=== PATIENT | male | born 1960 | race Caucasian/White ===

== ENCOUNTER 2017-10-09 09:14 | Emergency (ER) | payer SELFPAY ==
[2017-10-09 09:14] VITALS: BP 135/79; PULSE 93; RESP 16; TEMP 36.9; O2SAT 98; BMI 32.5
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
[2017-10-09] MEDS: 0.9% Normal Saline 1,000 ML 1000 ML IV (09:45)
[2017-10-09] MEDS: Ketorolac 30 MG/ML Syringe IV (09:46)
[2017-10-09] MEDS: Ondansetron 4 MG/2 ML Vial IV (09:46)
[2017-10-09 11:10] VITALS: PULSE 72; RESP 18; O2SAT 99
== END 2017-10-09 11:15 | disposition home or self-care (01) ==
PROVIDERS: Emergency Provider Emergency Medicine; Family Provider Nurse Practitioner; PCP Nurse Practitioner
DX: B34.9 Viral infection, unspecified (principal); K52.9 Noninfective gastroenteritis and colitis, unspecified; J02.9 Acute pharyngitis, unspecified; R05 Cough; K21.9 Gastro-esophageal reflux disease without esophagitis; I10 Essential (primary) hypertension; E78.00 Pure hypercholesterolemia, unspecified; Z87.19 Personal history of other diseases of the digestive system; Z79.899 Other long term (current) drug therapy
CPT/HCPCS: 87804; 96361; 96374; 96375; 99283; J7030; J2405

== ENCOUNTER 2019-09-25 09:55 | Emergency (ER) | payer OTHER, SELFPAY ==
[2019-09-25 09:56] VITALS: BP 161/107; PULSE 80; RESP 16; TEMP 36.6; O2SAT 96; BMI 30.5
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
[2019-09-25] MEDS: Naproxen 500 MG Tablet PO (10:48)
--- NOTE | 2019-09-25 10:58 | RAD_ITS ---
STUDY: X-RAY - RIGHT SHOULDER REASON FOR EXAM: Male, 59 years old. Pt. Fell, pain TECHNIQUE: 4 view(s) of the shoulder. COMPARISON: None. FINDINGS: Normal glenohumeral articulation. Normal acromioclavicular joint. Normal acromion. Normal humeral head and visualized proximal humerus. The soft tissue structures are unremarkable. Normal visualized pulmonary apex. RAD/Shoulder min 2 Views IMPRESSION: Normal x-ray examination of the shoulder. Electronically Signed: Jacques Bateman, at 11:18 EST , Service support ,
--- NOTE | 2019-09-25 10:58 | RAD_ITS ---
STUDY: X-RAY - LEFT KNEE REASON FOR EXAM: Male, 59 years old. pt. Fell, pain, able to bear weight TECHNIQUE: 4 view(s) of the knee. COMPARISON: None. FINDINGS: Normal visualized distal femur. Normal visualized proximal tibia and fibula. Normal proximal tibiofibular articulation. Normal medial femorotibial compartment. Normal lateral femorotibial compartment. Normal patellofemoral articulation. Prepatellar soft tissue swelling. RAD/Knee 4 or More Views IMPRESSION: Prepatellar soft tissue swelling. Electronically Signed: Jacques Bateman, at 11:17 EST , Service support ,
[2019-09-25 11:39] VITALS: BP 128/77; PULSE 83; RESP 15; O2SAT 98
== END 2019-09-25 11:39 | disposition home or self-care (01) ==
PROVIDERS: Emergency Provider Emergency Medicine; Family Provider Nurse Practitioner; PCP Nurse Practitioner
DX: S46.911A Strain of unspecified muscle, fascia and tendon at shoulder and upper arm level, right arm, initial encounter (principal); S80.02XA Contusion of left knee, initial encounter; W01.0XXA Fall on same level from slipping, tripping and stumbling without subsequent striking against object, initial encounter; Y93.9 Activity, unspecified; Y92.9 Unspecified place or not applicable
CPT/HCPCS: 73030; 73564; 99283

== ENCOUNTER → 2019-10-08 15:58 | Outpatient (CLI) | payer OTHER, SELFPAY ==
[2019-09-26 09:08] VITALS: BMI 30.5
--- NOTE | 2019-10-08 15:59 | MRI_ITS ---
STUDY: MRI RIGHT SHOULDER REASON FOR EXAM: Male, 59 years old. right shoulder pain, LIMITED ROM AFTER FALL TECHNIQUE: Standardized fat and water weighted pulse sequences were obtained in all 3 orthogonal planes. COMPARISON: None. FINDINGS: An undersurface partial tear of the anterior aspect of supraspinatus tendon is present at its insertion site on the greater tuberosity measuring 1.12 cm. Normal infraspinatus tendon. Normal subscapularis tendon. Normal teres minor tendon. Normal supraspinatus muscle. Normal infraspinatus muscle. Normal subscapularis muscle. Normal teres minor muscle. A small glenohumeral joint effusion is present. Normal glenohumeral articulation. Normal humeral head and visualized proximal humerus. Normal biceps labral complex. Normal intracapsular long biceps tendon. A linear and degenerative appearing tear of the superior and anterior glenoid labrum is present. The posterior glenoid labrum is normal. Normal capsulo- ligamentous complex. Normal rotator interval. There is mild osteoarthritis of the acromioclavicular articulation. There is a Type II morphology (curved), with a neutral orientation. There is no subacromial-subdeltoid bursal fluid. Normal visualized coracohumeral and coracoacromial ligaments. Normal quadrilateral space. Normal axillary space. Normal deltoid muscle. Normal trapezius muscle. MRI/Upper Ext Joint Only(Routine) IMPRESSION: 1. Undersurface tear in the far anterior aspect of the supraspinatus tendon. 2. Horizontal and degenerative tearing of the superior and anterior glenoid labrum. 3. Small glenohumeral joint effusion Electronically Signed: Luis Parra MD at 18:25 EST , Service support ,
--- NOTE | 2019-10-08 16:08 | RAD_ITS ---
STUDY: X-RAY - ORBITS REASON FOR EXAM: Male, 59 years old. Hx of metal in the eye. clearance for MRI. TECHNIQUE: 2 view(s) of the orbits were obtained. COMPARISON: None. FINDINGS: Normal bilateral orbits without a metallic orbital foreign body. Normal visualized facial bones. Normal paranasal sinuses. The soft tissue structures are unremarkable. RAD/Orbits for Foreign Body IMPRESSION: No demonstrated metallic orbital foreign body. The patient is cleared for an MRI examination. Electronically Signed: Simon García MD at 16:46 EST , Service support ,
== END ==
PROVIDERS: PCP Nurse Practitioner; Referring Provider Physician Assistant Surgical; Visit Provider Physician Assistant Surgical
DX: M25.511 Pain in right shoulder (principal)
CPT/HCPCS: 70030; 73221

== ENCOUNTER → 2025-08-09 | Outpatient (CLI) | payer SELFPAY ==
--- OUTSIDE RECORDS SUMMARY | 2025-08-09 15:29 | XMS RPT_ITS | CCD ---
Author Organization [facility] Care Team Providers Care Homicide Squad Commanding Officer Name Role Phone TRANGT, RAMONITA PAC Admitting Unavailable WAYT, RAMONITA PAC Attending Unavailable WAYT, RAMONITA PAC Primary Care Unavailable FAST, CROW DO Consulting Unavailable PROVIDER, UNKNOWN Consulting Unavailable WAYT, RAMONITA PAC Admitting Unavailable WAYT, RAMONITA PAC Attending Unavailable WAYT, RAMONITA PAC Primary Care Unavailable FAST, CROW DO Consulting Unavailable PROVIDER, UNKNOWN Consulting Unavailable Renate Yun CNP Unavailable Dr. Abdoulaye Castelan Unavailable [phone] Dulce Maria Melendez LPN Unavailable Unavailable Unavailable Unavailable Maxi Hameed LPN Unavailable Unavailable Nohemy Doran CNP Unavailable Nohemy Doran CNP Unavailable Renate Yun Unavailable Nohemy Doran CNP Unavailable Fast DO, Crow A Referring Unavailable Nohemy Doran CNP Attending Unavailable Nohemy Doran CNP Consulting Unavailable Aminata Santoro MA Unavailable Unavailable Obey Goddard Attending Unavailable Obey Goddard Attending Unavailable Medications Completed/Discontinued Medications Medication Drug Class(es) Dates Sig (Normalized) Sig (Original) albendazole 200 mg oral tablet (11 sources) Antihelminthic Start: 08-24-2016 End: 09-22-2021 Albenza 200 MG Oral Tablet 2 (two) Tablet qd x 2 doses 2 two weeks apart for 0 days Quantity: 8 {Tablet} Refills: 0 Ordered: 22-Sep-2021 Dulce Maria Melendez LPN Start : 24-Aug-2016 End : 22-Sep-2021 Inactive [id number] 200 actuat albuterol 0.09 mg/actuat metered dose inhaler (15 sources) beta2-Adrenergic Agonist Start: 12-10-2022 take 1 puff(s) by inhalation every four to six hours albuterol sulfate 90 mcg/actuation inhalation HFA Aerosol with Adapter 1 puff every 4 to 6 hours;shortness of breath or wheezing for 0 days Quantity: 1 {Each} Refills: 3 Ordered: 10-Dec-2022 Espinoza FAYNohemy Start : 10-Dec-2022 Active Start: 09-09-2010 End: 04-16-2011 PROVENTIL HFA, 108 (90 Base) MCG/ACT (Inhalation Aerosol Solution) 2 (two) Aerosol Soln 2 puffs qid prn for 0 days Quantity: 1 {Aerosol_Soln} Refills: 1 Ordered: 16-Apr-2011 Radha Titus Start : 09-Sep-2010 End : 16-Apr-2011 Inactive amoxicillin 875 mg / clavulanate 125 mg oral tablet (11 sources) Penicillin-class Antibacterial Start: 06-24-2016 End: 07-04-2016 take 1 tablet by mouth twice daily Augmentin 875-125 MG Oral Tablet 1 Tablet bid for 10 days Quantity: 20 {Tablet} Refills: 0 Ordered: 24-Jun-2016 Yoli Newman DO Start : 24-Jun-2016 End : 04-Jul-2016 Inactive Ascorbic Acid (11 sources) Vitamin C End: 02-11-2016 take 2 tablets by mouth once daily VITAMIN C (PO Tab) 2 QD for 0 days Refills: 0 Ordered: 11-Feb-2016 Dulce Maria Melendez LPN End : 11-Feb-2016 Discontinued Comments: This order discontinued per [facility]. Comment on above: This order discontin ued per [facility]. atenolol 50 mg oral tablet (11 sources) beta-Adrenergic Tari Start: 05-24-2016 End: 08-24-2016 take 1 tablet by mouth once daily Atenolol 50 MG Oral Tablet 1 (one) Tablet qd for 30 days Quantity: 30 {Tablet} Refills: 11 Ordered: 24-Aug-2016 Dulce Maria Melendez LPN Start : 24-May-2016 End : 24-Aug-2016 Discontinued atorvastatin 20 mg oral tablet (11 sources) HMG-CoA Reductase Inhibitor Start: 10-07-2017 End: 09-22-2021 take 1 tablet by mouth once daily Atorvastatin Calcium 20 MG Oral Tablet 1 (one) Tablet daily for 0 days Quantity: 30 {Tablet} Refills: 3 Ordered: 22-Sep-2021 Al STEINERDulce Maria Start : 07-Oct-2017 End : 22-Sep-2021 Inactive Comments: Pt will need appt before more refills Comment on above: Pt will need appt be fore more refills azithromycin 250 mg oral tablet (4 sources) Macrolide Antimicrobial Start: 12-10-2022 Zithromax Z-Melvin 250 mg oral tablet 1 Packet as directed on dose pack;For 250 mg dose pack: take 500 mg today (day 1), then 250 mg for 4 days (days 2-5) for 0 days Quantity: 1 {Packet} Refills: 0 Ordered: 10-Dec-2022 Nohemy Doran CNP Start : 10-Dec-2022 Active ciprofloxacin 500 mg oral tablet (11 sources) Quinolone Antimicrobial Start: 09-18-2012 End: 09-25-2012 take 1 tablet by mouth twice daily CIPRO, 500MG (Oral Tablet) 1 Tablet bid for 7 days Quantity: 14 {Tablet} Refills: 0 Ordered: 18-Sep-2012 Tiffanie Clifton LPN Start : 18-Sep-2012 End : 25-Sep-2012 Inactive 24 hr clarithromycin 500 mg extended release oral tablet (11 sources) Macrolide Antimicrobial Start: 09-09-2010 End: 04-16-2011 take 2 tablets by mouth once daily BIAXIN XL, 500MG (Oral Tablet Extended Release 24 Hour) 2 (two) Tablet ER 24HR qd for 0 days Quantity: 20 {Tablet_ER_24HR} Refills: 0 Ordered: 16-Apr-2011 Radha Titus Start : 09-Sep-2010 End : 16-Apr-2011 Inactive codeine phosphate 2 mg/ml / guaiFENesin 20 mg/ml oral solution (20 sources) Opioid Agonist Start: 09-01-2011 End: 09-23-2011 CHERATUSSIN AC, 100-10MG/5ML (Oral Syrup) 1-2 tsp Syrup q hs prn for 0 days Quantity: 100 {Milliliter} Refills: 0 Ordered: 23-Sep-2011 Maylin Castellano RN Start : 01-Sep-2011 End : 23-Sep-2011 Inactive Comments: one hundred milliliters Start: 09-08-2009 End: 04-16-2011 GUAIATUSSIN AC, 100-10MG/5ML (Oral Syrup) 1 Syrup 1tsp qhs for 0 days Quantity: 6 {Syrup} Refills: 0 Ordered: 16-Apr-2011 Radha Titus Start : 08-Sep-2009 End : 16-Apr-2011 Inactive Comment on above: one hundred millilit ers esomeprazole 40 mg delayed release oral capsule (11 sources) Proton Pump Inhibitor Start: 3 End: 4 NEXIUM, 40MG (Oral Capsule Delayed Release) [address] daily for 0 days Quantity: 30 {Capsule_DR} Refills: 0 Ordered: 22-Apr-2014 Tiffanie Clifton LPN Start : 12-Feb-2013 End : 22-Apr-2014 Discontinued Comments: patient needs appt. for more refills Comment on above: patient needs appt. for more refills ferrous sulfate 325 mg delayed release oral tablet (20 sources) Start: 4 End: 2 take 1 tablet by mouth once daily Ferrous Sulfate 325 (65 Fe) MG Oral Tablet Delayed Release 1 (one) Tablet DR daily for 450 days Refills: 0 Ordered: 22-Sep-2021 Dulce Maria Melendez LPN Start : 22-Apr-2014 End : 22-Sep-2021 Inactive Start: 09-11-2009 End: 10-11-2009 take 1 tablet by mouth once daily FERROUS SULFATE, 325 (65 Fe)MG (Oral Tablet) 1 (one) Tablet daily for 30 days Refills: 0 Ordered: 11-Sep-2009 Renate Yun Start : 11-Sep-2009 End : 11-Oct-2009 Inactive hydroCHLOROthiazide 12.5 mg / lisinopril 10 mg oral tablet (11 sources) Thiazide Diuretic, Angiotensin Converting Enzyme Inhibitor Start: 10-07-2017 End: 09-22-2021 take 1 tablet by mouth once daily Lisinopril-hydroCHLOROthiazide 10-12.5 MG Oral Tablet 1 (one) Tablet daily for 30 days Quantity: 30 {Tablet} Refills: 3 Ordered: 22-Sep-2021 Dulce Maria Melendez LPN Start : 07-Oct-2017 End : 22-Sep-2021 Inactive Comments: pt will need ov before more refills Comment on above: pt will need ov befo re more refills lansoprazole 30 mg delayed release oral capsule (11 sources) Proton Pump Inhibitor Start: 04-22-2014 End: 05-22-2014 PREVACID, 30MG (Oral Capsule Delayed Release) [address] qd for 30 days Refills: 0 Ordered: 22-Apr-2014 Renate Yun Start : 22-Apr-2014 End : 22-May-2014 Inactive levoFLOXacin 500 mg oral tablet (20 sources) Quinolone Antimicrobial Start: 09-23-2011 End: 10-03-2011 take 1 tablet by mouth once daily LEVAQUIN, 500MG (Oral Tablet) 1 Tablet daily for 10 days Quantity: 10 {Tablet} Refills: 0 Ordered: 23-Sep-2011 Trent BUCKLEY Yoli Start : 23-Sep-2011 End : 03-Oct-2011 Inactive Start: 06-19-2009 End: 04-16-2011 LEVAQUIN, 500MG (Oral Tablet ) 1 Tablet for 0 days Refills: 0 Ordered: 16-Apr-2011 Radha Titus Start : 19-Jun-2009 End : 16-Apr-2011 Inactive lisinopril 40 mg oral tablet (9 sources) Angiotensin Converting Enzyme Inhibitor Start: 06-20-2023 take 1 tablet by mouth once daily lisinopriL 40 mg oral tablet 1 (one) Tablet daily for 0 days Quantity: 30 {Tablet} Refills: 3 Ordered: 20-Jun-2023 Nohemy Doran CNP Start : 20-Jun-2023 Active Start: 01-11-2023 take 1 tablet by danie th once daily lisinopriL 40 mg oral tablet 1 (one) Tablet daily for 0 days Quantity: 30 {Tablet} Refills: 3 Ordered: 11-Jan-2023 Nohemy Doran CNP Start : 11-Jan-2023 Active Start: 12-10-2022 take 1 tablet by danie th once daily lisinopriL 40 mg oral tablet 1 (one) Tablet daily for 0 days Quantity: 30 {Tablet} Refills: 3 Ordered: 10-Dec-2022 Nohemy Doran CNP Start : 10-Dec-2022 Active Start: 12-10-2022 take 1 tablet by danie th once daily lisinopriL 40 mg oral tablet 1 (one) Tablet daily for 0 days Quantity: 30 {Tablet} Refills: 3 Ordered: 10-Dec-2022 Nohemy Doran CNP Start : 10-Dec-2022 Active Start: 10-08-2022 take 1 tablet by danie th once daily lisinopriL 20 mg oral tablet 1 (one) Tablet daily for 0 days Quantity: 30 {Tablet} Refills: 3 Ordered: 08-Oct-2022 Nohemy Doran CNP Start : 08-Oct-2022 Active Start: 07-14-2022 take 1 tablet by danie th once daily Lisinopril 10 MG Oral Tablet 1 (one) Tablet daily for 0 days Quantity: 30 {Tablet} Refills: 3 Ordered: 14-Jul-2022 Nohemy Doran CNP Start : 14-Jul-2022 Active Start: 03-05-2022 take 1 tablet by danie th once daily Lisinopril 10 MG Oral Tablet 1 (one) Tablet daily for 0 days Quantity: 30 {Tablet} Refills: 3 Ordered: 05-Mar-2022 Nohemy Doran CNP Start : 05-Mar-2022 Active Start: 11-13-2021 take 1 tablet by danie th once daily Lisinopril 10 MG Oral Tablet 1 (one) Tablet daily for 0 days Quantity: 30 {Tablet} Refills: 3 Ordered: 13-Nov-2021 Cikeniaa FAY, Ena Cikeniaalejandra APONTE, Renate Timmons Start : 13-Nov-2021 Active MENS ONE DAILY (Oral Tablet) (11 sources) End: 02-11-2016 take 1 tablet by mouth once daily MENS ONE DAILY (Oral Tablet) for 0 days Refills: 0 Ordered: 11-Feb-2016 Dulce Maria Melendez LPN End : 11-Feb-2016 Discontinued Comments: This order discontinued per [facility]. Comment on above: This order discontin ued per [facility]. predniSONE 10 mg oral tablet (15 sources) Start: 12-10-2022 End: 12-15-2022 take 4 tablets by mouth once daily predniSONE 10 mg oral tablet 4 tablet daily for 5 days Quantity: 20 {Tablet} Refills: 0 Ordered: 10-Dec-2022 Nohemy Doran CNP Start : 10-Dec-2022 End : 15-Dec-2022 Inactive Start: 09-23-2011 End: 05-25-2012 take 1 tablet by mouth once daily PREDNISONE, 20MG (Oral Tablet) 1 Tablet qd for 0 days Quantity: 5 {Tablet} Refills: 0 Ordered: 25-May-2012 Maylin Castellano RN Start : 23-Sep-2011 End : 25-May-2012 Inactive rosuvastatin calcium 5 mg oral tablet (9 sources) HMG-CoA Reductase Inhibitor Start: 06-20-2023 take 1 tablet by mouth once daily at bedtime rosuvastatin 5 mg oral tablet 1 (one) Tablet qhs for 0 days Quantity: 30 {Tablet} Refills: 3 Ordered: 20-Jun-2023 Nohemy Doran CNP Start : 20-Jun-2023 Active Start: 01-11-2023 take 1 tablet by danie th once daily at bedtime rosuvastatin 5 mg oral tablet 1 (one) Tablet qhs for 0 days Quantity: 30 {Tablet} Refills: 3 Ordered: 11-Jan-2023 Nohemy Doran CNP Start : 11-Jan-2023 Active Start: 10-08-2022 take 1 tablet by danie th once daily at bedtime rosuvastatin 5 mg oral tablet 1 (one) Tablet qhs for 0 days Quantity: 30 {Tablet} Refills: 3 Ordered: 08-Oct-2022 Nohemy Doran CNP Start : 08-Oct-2022 Active Start: 07-14-2022 take 1 tablet by danie th once daily at bedtime Rosuvastatin Calcium 5 MG Oral Tablet 1 (one) Tablet qhs for 0 days Quantity: 30 {Tablet} Refills: 3 Ordered: 14-Jul-2022 Nohemy Doran CNP Start : 14-Jul-2022 Active Start: 03-05-2022 take 1 tablet by danie th once daily at bedtime Rosuvastatin Calcium 5 MG Oral Tablet 1 (one) Tablet qhs for 0 days Quantity: 30 {Tablet} Refills: 3 Ordered: 05-Mar-2022 Nohemy Doran CNP Start : 05-Mar-2022 Active Start: 11-13-2021 take 1 tablet by danie th once daily at bedtime Rosuvastatin Calcium 5 MG Oral Tablet 1 (one) Tablet qhs for 0 days Quantity: 30 {Tablet} Refills: 3 Ordered: 13-Nov-2021 Renate Yun CNP, CNP, Renate Timmons Start : 13-Nov-2021 Active NEGATED: Highlighted row has not occurred!No Known Historical Medications (3 sources) No Known Histori robles Medications Problems Active Problems Problem Classification Problem Date Documented Date Episodic/Chronic Abdominal pain (20 sources) Abdominal pain; Translations: [Abdominal pain] Resolved: 3 06-24-2016 Episodic Comment on above: improved with cipro for pseudomonas in stool Acute bronchitis (17 sources) Acute bronchitis; Translations: [Bronchitis, acute] Resolved: 1 06-17-2015 Episodic Administrative/social admission (18 sources) Patient encounter status; Translations: [Physical examination of employee] Onset: 4 08-24-2016 Episodic Comment on above: DOT exam Chronic obstructive pulmonary disease and bronchiectasis (20 sources) Bronchitis; Translations: [Bronchitis] Onset: 2 Resolved: 2 08-24-2016 Episodic Deficiency and other anemia (20 sources) Iron deficiency anemia; Translations: [Iron deficiency anemia, unspecified] 08-24-2016 Episodic Comment on above: hemoglobin improved -? take supplement l karen ferrous gluconate that may help fatigue, insomniahemoglobin improved in past, not on any supplement Deficiency and other anemia (20 sources) Iron deficiency anemia, unspecified Episodic Diabetes mellitus without complication (20 sources) Impaired fasting glycemia; Translations: [Impaired fasting glucose] 11-13-2021 Episodic Disorders of lipid metabolism (20 sources) Hypercholesterolemia; Translations: [Hypercholesterolemia] 08-24-2016 Chronic Comment on above: improved on atorvast atin on atorvastatin check lipid today, s tarted back on crestor back in November 2021 -self pay so only wa nts to check yearly. we will repeat lipids prior to next OVcontinue rosuvastatin 5mg qhsstarted back on crestor November 2021, numbers in April 02 were much better Esophageal disorders (20 sources) Gastroesophageal reflux disease; Translations: [GERD (gastroesophageal reflux disease)] 08-24-2016 Chronic Comment on above: OTC med Essential hypertension (20 sources) Benign hypertension; Translations: [Hypertension, benign] 08-24-2016 Chronic Comment on above: controlled on lisino pril-hydrochlorothiazide has been on lisinopr il in the past, coming back as new pt, will check labs then restart once seen check cmp today sinc e back on meds. -does not check at home but bp looks good todaylisinopril in the past, restarted, labs were to be done in February but forgot -He is going to get a machine and keep BP log, bring in the log in the next few weeks.-increase lisinopril to 20mg daily-educated on potential causes of high bp, including his untreated sleep apnea, diet/salt intake (eating a lot of fast food), etc.not checking bp at home. BP high today Immunizations and screening for infectious disease (20 sources) Needs influenza immunization; Translations: [Need for prophylactic vaccination and inoculation against influenza] 08-24-2016 Episodic Intestinal infection (20 sources) Intestinal infection due to Pseudomonas; Translations: [Intestinal infection due to Pseudomonas (Renamed from Enteritis, pseudomonas)] Resolved: 3 06-24-2016 Episodic Malaise and fatigue (20 sources) Fatigue; Translations: [Fatigue] 08-24-2016 Episodic Nonspecific chest pain (20 sources) Chest pain; Translations: [Chest pain] Resolved: 2 08-24-2016 Episodic Comment on above: my suspiciion is rel ated to bronchitis but lungs clear no feeling different after aerosol-- -- will look at heart-- family h/o from cv disease at 60 Osteoarthritis (20 sources) Arthritis; Translations: [Arthritis] 08-24-2016 Chronic Other acquired deformities (17 sources) Deviation of finger; Translations: [Finger deformity, left] 08-24-2016 Episodic Comment on above: workmans comp case, seen by David/Zack Other ear and sense organ disorders (6 sources) Bilateral tinnitus; Translations: [Tinnitus, bilateral] 12-10-2022 Episodic Comment on above: possibly d/t uncontr olled htn, TMs are intact. no fluid. some scar tissue Other gastrointestinal disorders (20 sources) Abdominal bloating; Translations: [Abdominal bloating] Resolved: 2 08-24-2016 Episodic Comment on above: eating ham sausage Other gastrointestinal disorders (20 sources) Diarrhea; Translations: [DIARRHEA] Resolved: 3 06-24-2016 Episodic Comment on above: pseudomonas in stool , treated with cipro Other infections; including parasitic (17 sources) H/O: infectious disease; Translations: [History of worms] 08-24-2016 Episodic Comment on above: took seeds of papaya , will treat empiracally Other lower respiratory disease (20 sources) Cough; Translations: [Cough] Onset: 2 Resolved: 3 06-24-2016 Episodic Other non-traumatic joint disorders (20 sources) Joint pain; Translations: [Joint pain] 08-24-2016 Episodic Comment on above: frequent tick exposu re Other nutritional; endocrine; and metabolic disorders (20 sources) Lipids abnormal; Translations: [Abnormal cholesterol test] Resolved: 3 08-24-2016 Chronic Other nutritional; endocrine; and metabolic disorders (20 sources) Body mass index 30+ - obesity; Translations: [BMI 33.0-33.9,adult] Resolved: 3 09-22-2021 Chronic Other nutritional; endocrine; and metabolic disorders (20 sources) Weight gain; Translations: [Weight gain] Resolved: 1 06-24-2016 Episodic Other screening for suspected conditions (not mental disorders or infectious disease) (20 sources) Blood chemistry abnormal; Translations: [Abnormal blood chemistry] Resolved: 3 08-24-2016 Episodic Other upper respiratory infections (20 sources) Upper respiratory infection; Translations: [Upper respiratory infection] Resolved: 1 08-24-2016 Episodic Residual codes; unclassified (20 sources) Obstructive sleep apnea of adult; Translations: [Obstructive sleep apnea, adult] 08-24-2016 Chronic Comment on above: untreated, 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 likely why he only sleeps on average 4 hours per night. Residual codes; unclassified (5 sources) Obstructive sleep apnea syndrome Chronic Residual codes; unclassified (20 sources) Family history of stroke; Translations: [Family history of stroke] 08-24-2016 Episodic Comment on above: father Residual codes; unclassified (20 sources) Non-smoker; Translations: [Nonsmoker] 09-22-2021 Episodic Unclassified (20 sources) Unclassified (18 sources) Nonsmoker Unclassified (15 sources) BMI 39.0-39.9,adult Unclassified (17 sources) Hypertension, benign Unclassified (5 sources) History of worms Unclassified (5 sources) Finger deformity, left Unclassified (9 sources) Screening for prostate cancer Unclassified (5 sources) Obstructive sleep apnea, adult Unclassified (5 sources) Abnormal blood chemistry Unclassified (5 sources) BMI 38.0-38.9,adult Unclassified (20 sources) HYPERCHOLESTEROLEMIA, PURE (272.0) Unclassified (20 sources) Hypertension,benign(401 .1) Unclassified (15 sources) CHEST PAIN, NOS (786.50) Unclassified (15 sources) BRONCHITIS, NOT SPECIFIED ACUTE OR CHRONIC (490.) Unclassified (10 sources) Weight gain (783.1) Unclassified (10 sources) SCREENING FOR CANCER OF THE PROSTATE (V76.44) Unclassified (15 sources) Abnormal Cholesterol (272.9) Past or Other Problems Problem Classification Problem Date Documented Date Episodic/Chronic Fracture of upper limb (11 sources) Fracture of clavicle; Translations: [Fracture Of Clavicle] Resolved: 03-31-2022 08-24-2016 Episodic Other fractures (11 sources) Fracture of rib; Translations: [Fracture Of Rib] Resolved: 03-31-2022 08-24-2016 Episodic Sprains and strains (3 sources) Strain of unspecified muscle, fascia and tendon at shoulder and upper arm level, right arm, initial encounter; Translations: [Strain of unspecified muscle, fascia and tendon at shoulder and upper arm level, right arm, initial encounter] Onset: 01-11-2020 Episodic Superficial injury; contusion (1 source) Contusion of left knee, initial encounter; Translations: [Contusion of left knee, initial encounter] Onset: 11-09-2019 Episodic Unclassified (11 sources) Unspecified Diagnosis 09-22-2021 Unclassified (5 sources) BMI 33.0-33.9,adult Unclassified (5 sources) Physical examination of employee Unclassified (15 sources) 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.3) Unclassified (5 sources) Bronchitis,Acute (466.0) Unclassified (10 sources) Abnormal blood chemistry (790.6) Unclassified (3 sources) BMI 36.0-36.9,adult Results Test Name Value Interpretation Reference Range Facility Urgent Care Visit Reporton 1 10-29-2023 Urgent Care Visit Report [facility] [address], [address] [place] [address] OFFICE VISIT Date of Service: 08/28/24 MR#: [id number] Acct: [id number] Name: MILKA LANGFORD Rep #: [id number] : 1960 Provider: MONA Jiménez Age/Sex: 64/M Location: [facility] Status: Signed Intake Vital Signs 05/29/24 16:53 Height 5 ft 6.5 in Weight: 253 lb 6 oz BMI 40.2 BP 150/90 H Position Sitting Pulse 94 Temp 98.9 F Temp Source Temporal Pulse Oximetry (%) 98 Oxygen Delivery Method room air Intake Visit Reasons: O DOT PHYSICAL Chief Complaint: DOT physical Allergies No Known Allergies Allergy (Verified 05/29/24 16:41) PFSH Social History (Updated 05/16/20 @ 11:15 by Sudheer DUNN PA) Smoking Status: Never smoker HPI HPI Chief Complaint: DOT physical Details: MILKA LANGFORD, is a 64 M who presents to the office today for Office Procedures Physical Exam Coding PE Coding DOT PE: Yes Coding Level of Care Code No Charge Diagnoses Encounter for examination required by Department of Transportation (DOT) Z02.89 Assessment and Plan Assessment and Plan (1) Encounter for examination required by Department of Transportation (DOT): Status: Acute 08/28/24 1350 Date Obey Gutierrezignsweetie Signature: Date (if applicable) CC: Normal [facility] Urgent Care Visit Reporton 0 05-29-2024 Urgent Care Visit Report [facility] [address], [address] [place] [address] OFFICE VISIT Date of Service: 05/29/24 MR#: [id number] Acct: [id number] Name: MILKA LANGFORD Rep #: [id number] : 1960 Provider: MONA Jiménez Age/Sex: 63/M Location: [facility] Status: Signed Intake Vital Signs 05/29/24 16:53 Height 5 ft 6.5 in Weight: 253 lb 6 oz BMI 40.2 BP 150/90 H Position Sitting Pulse 94 Temp 98.9 F Temp Source Temporal Pulse Oximetry (%) 98 Oxygen Delivery Method room air Intake Visit Reasons: DOT PHYSICAL/ SELF PAY Chief Complaint: DOT physical Accompanied by: Self Allergies No Known Allergies Allergy (Verified 05/29/24 16:41) Medications ???Medication ???Instructions ???Recorded ???Confirmed ???Type NK 05/29/24 05/29/24 History PFSH Social History (Updated 05/16/20 @ 11:15 by Sudheer DUNN PA) Smoking Status: Never smoker HPI HPI Chief Complaint: DOT physical Details: MILKA LANGFORD, is a 63 M who presents to the office today for Office Procedures Physical Exam Coding PE Coding DOT PE: Yes Coding Level of Care Code No Charge Diagnoses Encounter for examination required by Department of Transportation (DOT) Z02.89 Assessment and Plan Assessment and Plan (1) Encounter for examination required by Department of Transportation (DOT): Status: Acute 05/29/24 1659 Date Obey Duran Signature: Date (if applicable) CC: Normal [facility] LIPID PANEL ([id number])Ordered B y: Plastic Press Operator on 12-10-2022 Cholesterol [Mass/Vol] 171 mg/dL Normal 100-199 [facility] Work Phone: Comment on above: prior next ov; PATIE NT WAS FASTINGPERFORMED BY: DEE [employer] [id number] [place] [facility] [id number] Cholesterol in HDL [Mass/Vol] 52 mg/dL Normal [facility] Work Phone: Comment on above: prior next ov; PATIE NT WAS FASTINGPERFORMED BY: DEE [id number] [address] [facility]rees[facility] [id number] Triglyceride [Mass/Vol] 82 mg/dL Normal 0-149 [facility] Work Phone: Comment on above: prior next ov; PATIE NT WAS FASTINGPERFORMED BY: DEE [facility] [id number] [facility] [id number] LIPID PANEL ([id number]) 15 mg/dL Normal 5-40 [facility] Work Phone: Comment on above: prior next ov; PATIE NT WAS FASTINGPERFORMED BY: CB [facility] [id number] [address] [facility] [id number] LIPID PANEL (25671) 104 mg/dL Abnormal 0-99 [facility] Medicine; [facility] Work Phone: Comment on above: prior next ov; PATIE NT WAS FASTINGPERFORMED BY: DEE [facility] Cowete7425 [facility] [id number] LIPID PANEL (93206) 2.0 {ratio} Normal 0.0-3.6 [facility] Internal Medicine; [facility] Work Phone: Comment on above: LDL/HDL Ratio Men Wo men 1/2 Avg.Risk 1.0 1.5 Avg.Risk 3.6 3.2 2X Avg.Risk 6.2 5.0 3X Avg.Risk 8.0 6.1 prior next ov; NADYAE NT WAS FASTINGPERFORMED BY: DEE [facility] Tvmtqv3206 [facility] [id number] METABOLIC PANEL, COMPREHENSI VE (11950)Ordered By: Plastic Press Operator on 12-10-2022 Albumin [Mass/Vol] 4.0 g/dL Normal 3.8-4.9 [facility]; [facility] Work Phone: Comment on above: prior to ov; PATIENT WAS FASTINGPERFORMED BY: DEE [facility] Vrvagz6007 [facility] [id number] Albumin/Globulin [Mass ratio] 1.3 {ratio} Normal 1.2-2.2 [facility]; [facility] Work Phone: Comment on above: prior to ov; PATIENT WAS FASTINGPERFORMED BY: CB [facility] Nriyht8234 [address]Dublin [place] [id number] ALP [Catalytic activity/Vol] 55 U/L Normal 44-121 [facility]; [facility] Work Phone: Comment on above: prior to ov; PATIENT WAS FASTINGPERFORMED BY: CB [facility] Fzdpvs7116 [address]Dublin [place] [id number] ALT [Catalytic activity/Vol] 26 U/L Normal 0-44 [facility]; [facility] Work Phone: Comment on above: prior to ov; PATIENT WAS FASTINGPERFORMED BY: CB [facility] Rqhvxa8320 [address] RoadDublin [place] [id number] AST [Catalytic activity/Vol] 15 U/L Normal 0-40 [facility]; [facility] Work Phone: Comment on above: prior to ov; PATIENT WAS FASTINGPERFORMED BY: CB [facility] Kuzmcq6089 [address]Dublin [place] [id number] Bilirubin [Mass/Vol] 0.3 mg/dL Normal 0.0-1.2 Comp rehensive Internal Medicine; [facility] Work Phone: Comment on above: prior to ov; PATIENT WAS FASTINGPERFORMED BY: CB [facility] Vlphde5265 [address]Dublin [place] [id number] Calcium [Mass/Vol] 8.9 mg/dL Normal 8.6-10.2 [facility]; [facility] Work Phone: Comment on above: prior to ov; PATIENT WAS FASTINGPERFORMED BY: CB [facility] Pofkuf3240 [address] RoadDublin [place] [id number] Chloride [Moles/Vol] 103 mmol/L Normal 96-106 Comp rehensive Internal Medicine; [facility] Work Phone: Comment on above: prior to ov; PATIENT WAS FASTINGPERFORMED BY: CB [facility] Qxscjb3146 [address]Dublin [place] [id number] CO2 [Moles/Vol] 25 mmol/L Normal 20-29 [facility]; [facility] Work Phone: Comment on above: prior to ov; PATIENT WAS FASTINGPERFORMED BY: DEE [facility] Nixcfr9213 [facility] [place] [id number] Creatinine [Mass/Vol] 1.03 mg/dL Normal 0.76-1.27 [facility] prehensive Internal Medicine; [facility] Work Phone: Comment on above: prior to ov; PATIENT WAS FASTINGPERFORMED BY: DEE [facility] Qzwbcx6095 [facility] [id number] GFR/1.73 sq M.predicted among non-blacks MDRD (S/P/Bld) [Vol rate/Area] 83 mL/min/{1.73_m2} Normal Comprehensiv e Internal Medicine; [facility] Work Phone: Comment on above: prior to ov; PATIENT WAS FASTINGPERFORMED BY: DEE [facility] Pfxzzf0993 [facility] [id number] Globulin (S) [Mass/Vol] 3.0 g/dL Normal 1.5-4.5 [facility] Internal Medicine; [facility] Work Phone: Comment on above: prior to ov; PATIENT WAS FASTINGPERFORMED BY: DEE [facility] Xixogu1390 [facility] [place] [id number] Glucose [Mass/Vol] 104 mg/dL Abnormal 70-99 [facility]; [facility] Work Phone: Comment on above: prior to ov; PATIENT WAS FASTINGPERFORMED BY: [facility] Meymdy5907 [facility] [id number] Potassium [Moles/Vol] 4.5 mmol/L Normal 3.5-5.2 [facility] prehensive Internal Medicine; [facility] Work Phone: Comment on above: prior to ov; PATIENT WAS FASTINGPERFORMED BY: [facility] Ucemxv8649 [facility] [id number] Protein [Mass/Vol] 7.0 g/dL Normal 6.0-8.5 [facility] Internal [facility]; [facility] Work Phone: Comment on above: prior to ov; PATIENT WAS FASTINGPERFORMED BY: DEE [facility] Fosevv[address] [place] [id number] Sodium [Moles/Vol] 142 mmol/L Normal 134-144 [facility] Internal Medicine; [facility] Work Phone: Comment on above: prior to ov; PATIENT WAS FASTINGPERFORMED BY: CB [facility] Gubqaw[address] Inoveight HoldingsDuin [place] [id number] Urea nitrogen [Mass/Vol] 17 mg/dL Normal 8-27 [facility]; [facility] Work Phone: Comment on above: prior to ov; PATIENT WAS FASTINGPERFORMED BY: DEE [facility] Myxjme30[address] Apricot TreesAtrium Health Harrisburg [id number] Urea nitrogen/Creatinine [Mass ratio] 17 mg/mg Normal 10-24 [facility]; [facility] Work Phone: Comment on above: prior to ov; PATIENT WAS FASTINGPERFORMED BY: DEE [facility] Kunojx[address] Inoveight HoldingsWashington [facility] [id number] Blood Glucose , Office ([id number] [id number])Ordered By: Dulce Maria Melendez on 04-02-2022 Glucose Glucometer (BldC) [Moles/Vol] 113 1 Normal [facility]; [facility] Work Phone: HGB A1C (47529)Ordered By: Kory ystem Journeyman Pipefitter on 04-02-2022 HbA1c (Bld) [Mass fraction] 6.0 % Abnormal 4.8-5.6 [facility]; [facility] Work Phone: Comment on above: . Prediabetes: 5.7 - 6.4 Diabetes: >6.4 Glycemic control for adults with diabetes: <7.February; PATIENT W FASTINGPERFORMED BY: DEE [facility] Ibcssu[address] Inoveight HoldingsWashington Regional [facility] Center [id number] HgA1C , Office ([id number])Ordere d By: Dulce Maria Melendez on 04-02-2022 HbA1c (Bld) [Mass fraction] 5.4 % Normal 4.6 - 7.1 [facility]; [facility] Work Phone: LIPID PANEL (34823)Ordered B y: Plastic Press Operator on 04-02-2022 Cholesterol [Mass/Vol] 192 mg/dL Normal 100-199 [facility]; [facility] Work Phone: Comment on above: fasting February 2022; P ATIENT WAS FASTINGPERFORMED BY: DEE [facility] Dqhigv2653 [address] RoadDublin [place] [id number] Cholesterol in HDL [Mass/Vol] 49 mg/dL Normal [facility]; [facility] Work Phone: Comment on above: fasting February 2022; P ATIENT WAS FASTINGPERFORMED BY: DEE [facility] Quwhga8666 [address] RoadDublin [place] [id number] Triglyceride [Mass/Vol] 94 mg/dL Normal 0-149 [facility]; [facility] Work Phone: Comment on above: fasting February 2022; P ATIENT WAS FASTINGPERFORMED BY: DEE [facility] Zrnkmj8004 [address]Dublin [place] [id number] LIPID PANEL (44415) 17 mg/dL Normal 5-40 [facility]; [facility] Work Phone: Comment on above: fasting February 2022; P ATIENT WAS FASTINGPERFORMED BY: DEE [facility] Ljkafm1910 [address]Dublin [place] [id number] LIPID PANEL (58866) 126 mg/dL Abnormal 0-99 [facility]; [facility] Work Phone: Comment on above: fasting February 2022; P ATIENT WAS FASTINGPERFORMED BY: DEE [facility] Zgejbs2241 [address] RoadDublin [place] [id number] LIPID PANEL (34852) 2.6 {ratio} Normal 0.0-3.6 [facility]; [facility] Work Phone: Comment on above: LDL/HDL Ratio Men Wo men 1/2 Avg.Risk 1.0 1.5 Avg.Risk 3.6 3.2 2X Avg.Risk 6.2 5.0 3X Avg.Risk 8.0 6.1 fasting February 2022; P ATIENT WAS FASTINGPERFORMED BY: CB [facility] Hiikzd6723 [address] RoadDublin [place] [id number] Metabolic Panel, Comprehensi ve (96762)Ordered By: Plastic Press Operator on 04-02-2022 Albumin [Mass/Vol] 4.2 g/dL Normal 3.8-4.9 [facility]; [facility] Work Phone: Comment on above: February 2022; PATIENT W FASTINGPERFORMED BY: CB [facility] Ujyujh7148 [address] RoadDublin [place] [id number] Albumin/Globulin [Mass ratio] 1.3 {ratio} Normal 1.2-2.2 [facility]; [facility] Work Phone: Comment on above: February 2022; PATIENT W FASTINGPERFORMED BY: CB [facility] Rvctsl4448 [address] RoadDublin [place] [id number] ALP [Catalytic activity/Vol] 65 U/L Normal 44-121 [facility]; [facility] Work Phone: Comment on above: February 2022; PATIENT W FASTINGPERFORMED BY: CB [facility] Fdaplz2601 [address] RoadDublin [place] [id number] ALT [Catalytic activity/Vol] 25 U/L Normal 0-44 [facility]; [facility] Work Phone: Comment on above: February 2022; PATIENT W FASTINGPERFORMED BY: CB [facility] Wrlabc5936 [address]Dublin [place] [id number] AST [Catalytic activity/Vol] 18 U/L Normal 0-40 [facility]; [facility] Work Phone: Comment on above: February 2022; PATIENT W FASTINGPERFORMED BY: CB [facility] Quwjwu7852 [address] RoadDublin [place] [id number] Bilirubin [Mass/Vol] 0.5 mg/dL Normal 0.0-1.2 [facility] Internal Medicine; [facility] Work Phone: Comment on above: February 2022; PATIENT W FASTINGPERFORMED BY: CB [facility] Wctsus9429 [address] RoadDublin [place] [id number] Calcium [Mass/Vol] 9.1 mg/dL Normal 8.7-10.2 [facility]; [facility] Work Phone: Comment on above: February 2022; PATIENT W FASTINGPERFORMED BY: CB [facility] Nhymhq8560 [address]Dublin [place] [id number] Chloride [Moles/Vol] 102 mmol/L Normal 96-106 [facility] rehensive Internal Medicine; [facility] Work Phone: Comment on above: February 2022; PATIENT W FASTINGPERFORMED BY: CB [facility] Zylvvl1364 [address]Dublin [place] [id number] CO2 [Moles/Vol] 23 mmol/L Normal 20-29 [facility] Internal Medicine; [facility] Work Phone: Comment on above: February 2022; PATIENT W FASTINGPERFORMED BY: [facility] Wwitsf9784 [address] RoadDublin [place] [id number] Creatinine [Mass/Vol] 1.05 mg/dL Normal 0.76-1.27 [facility]; [facility] Work Phone: Comment on above: February 2022; PATIENT W FASTINGPERFORMED BY: CB [facility] Ogzsyw5647 [address] RoadDublin [place] [id number] GFR/1.73 sq M.predicted among non-blacks MDRD (S/P/Bld) [Vol rate/Area] 82 mL/min/{1.73_m2} Normal Comprehensiv e Internal Medicine; [facility] Work Phone: Comment on above: February 2022; PATIENT W FASTINGPERFORMED BY: CB [facility] Firmvg2989 [address] RoadDublin [place] [id number] Globulin (S) [Mass/Vol] 3.2 g/dL Normal 1.5-4.5 [facility]; [facility] Work Phone: Comment on above: February 2022; PATIENT W FASTINGPERFORMED BY: CB [facility] Sxcgzp1662 [address] RoadDublin [place] [id number] Glucose [Mass/Vol] 99 mg/dL Normal 65-99 [facility]; [facility] Work Phone: Comment on above: February 2022; PATIENT W FASTINGPERFORMED BY: CB [facility] Vwmpom4222 [address]Dublin [place] [id number] Potassium [Moles/Vol] 4.3 mmol/L Normal 3.5-5.2 [facility] Internal Medicine; [facility] Work Phone: Comment on above: February 2022; PATIENT W FASTINGPERFORMED BY: CB [facility] Ulzwls9342 [address] RoadDuin [place] [id number] Protein [Mass/Vol] 7.4 g/dL Normal 6.0-8.5 [facility] Internal Medicine; [facility] Internal Medicine Work Phone: Comment on above: February 2022; PATIENT W FASTINGPERFORMED BY: CB [facility] Ojntsi7374 [address] RoadDuin [place] [id number] Sodium [Moles/Vol] 138 mmol/L Normal 134-144 [facility]; [facility] Work Phone: Comment on above: February 2022; PATIENT W FASTINGPERFORMED BY: CB [facility] Eibrte0316 [address] RoadUnc Health Caldwellin [place] [id number] Urea nitrogen [Mass/Vol] 12 mg/dL Normal 6-24 [facility] Internal Medicine; [facility] Work Phone: Comment on above: February 2022; PATIENT W FASTINGPERFORMED BY: CB [facility] Umtyqk[address] [facility]in [place] [id number] Urea nitrogen/Creatinine [Mass ratio] 11 mg/mg Normal 9-20 [facility] Internal Medicine; [facility] Work Phone: Comment on above: February 2022; PATIENT W FASTINGPERFORMED BY: CB [facility] Davlhg35[address] [facility]in [place] [id number] CBC & PLATELETS (AUTO) ([id number])Ordered By: Plastic Press Operator on 09-24-2021 Erythrocyte distribution width (RBC) [Ratio] 13.0 % Normal 11.6-15.4 [facility] Internal Medicine; [facility] Work Phone: Comment on above: Sep 24 2021; PATIENT WAS FASTINGPERFORMED BY: CB [facility] Ugulpg2815 [address] RoadDublin [place] [id number] Hematocrit (Bld) [Volume fraction] 51.2 % Abnormal 37.5-51.0 [facility]; [facility] Work Phone: Comment on above: Sep 24 2021; PATIENT WAS FASTINGPERFORMED BY: CB [facility] Jymguq6963 [address] RoadDublin [place] [id number] Hemoglobin (Bld) [Mass/Vol] 16.6 g/dL Normal 13.0-17.7 [facility]; [facility] Work Phone: Comment on above: Sep 24 2021; PATIENT WAS FASTINGPERFORMED BY: CB [facility] Gussgb7498 [address] RoadDublin [place] [id number] MCH (RBC) [Entitic mass] 28.8 pg Normal 26.6-33.0 [facility]; [facility] Work Phone: Comment on above: Sep 24 2021; PATIENT WAS FASTINGPERFORMED BY: CB [facility] Onhjmh6450 [address] RoadDublin [place] [id number] MCHC (RBC) [Mass/Vol] 32.4 g/dL Normal 31.5-35.7 [facility] prehensive Internal Medicine; [facility] Work Phone: Comment on above: Sep 24 2021; PATIENT WAS FASTINGPERFORMED BY: CB [facility] Nybpjo6239 [address] RoadDublin [place] [id number] MCV (RBC) [Entitic vol] 89 fL Normal 79-97 [facility]; [facility] Work Phone: Comment on above: Sep 24 2021; PATIENT WAS FASTINGPERFORMED BY: CB [facility] Tdsvgs6173 [address] RoadDublin [place] [id number] Platelets (Bld) [#/Vol] 265 10*3/uL Normal 150-450 [facility]; [facility] Work Phone: Comment on above: Sep 24 2021; PATIENT WAS FASTINGPERFORMED BY: CB [facility] Ecdkaq9311 [address] RoadDublin [place] [id number] RBC (Bld) [#/Vol] 5.77 10*6/uL Normal 4.14-5.80 [facility] Internal Medicine; [facility] Work Phone: Comment on above: Sep 24 2021; PATIENT WAS FASTINGPERFORMED BY: CB [facility] Nmdppa8654 [address]Dublin [place] [id number] WBC (Bld) [#/Vol] 6.5 10*3/uL Normal 3.4-10.8 [facility]; [facility] Work Phone: Comment on above: Sep 24 2021; PATIENT WAS FASTINGPERFORMED BY: CB [facility] Zicrtm9487 [address] RoadDublin [place] [id number] Ferritin ([id number])Ordered By: Plastic Press Operator on 09-24-2021 Ferritin [Mass/Vol] 233 ng/mL Normal 30-400 [facility] Internal Medicine; [facility] Work Phone: Comment on above: Sep 24 2021; PATIENT WAS FASTINGPERFORMED BY: CB [facility] Gvurdk9114 [address]Dublin [place] [id number] Iron ([id number])Ordered By: Syst em Journeyman Pipefitter on 09-24-2021 Iron [Mass/Vol] 110 ug/dL Normal 38-169 [facility] Internal Medicine; [facility] Work Phone: Comment on above: Sep 24, 2021; MANJINDER Marroquin WAS FASTINGPERFORMED BY: CB [facility] Mlesdv1046 [address] RoadDublin [place] [id number] Lipid Panel (84313)Ordered B y: Plastic Press Operator on 09-24-2021 Cholesterol [Mass/Vol] 233 mg/dL Abnormal 100-199 [facility]; [facility] Work Phone: Comment on above: Sep 24, 2021; MANJINDER Marroquin WAS FASTINGPERFORMED BY: CB [facility] Oacrhn8473 [address] RoadDublin [place] [id number] Cholesterol in HDL [Mass/Vol] 46 mg/dL Normal [facility]; [facility] Work Phone: Comment on above: Sep 24, 2021; MANJINDER Marroquin WAS FASTINGPERFORMED BY: CB [facility] Eauicy5111 [address] RoadDublin [place] [id number] Triglyceride [Mass/Vol] 86 mg/dL Normal 0-149 [facility]; [facility] Work Phone: Comment on above: Sep 24, 2021; MANJINDER Marroquin WAS FASTINGPERFORMED BY: CB [facility] Pziksk4569 [address] RoadDublin [place] [id number] Lipid Panel ([id number]) 15 mg/dL Normal 5-40 [facility]; [facility] Work Phone: Comment on above: Sep 24, 2021; MANJINDER Marroquin WAS FASTINGPERFORMED BY: CB [facility] Wgmszz2790 [address]Dublin [place] [id number] Lipid Panel (89233) 172 mg/dL Abnormal 0-99 [facility] Internal Medicine; [facility] Work Phone: Comment on above: Sep 24, 2021; MANJINDER Marroquin WAS FASTINGPERFORMED BY: CB [facility] Erfrgk5488 [address] RoadDublin [place] [id number] Lipid Panel (76400) 3.7 {ratio} Abnormal 0.0-3.6 [facility] Internal Medicine; [facility] Work Phone: Comment on above: LDL/HDL Ratio Men Wo men 1/2 Avg.Risk 1.0 1.5 Avg.Risk 3.6 3.2 2X Avg.Risk 6.2 5.0 3X Avg.Risk 8.0 6.1 Sep 24, 2021; MANJINDER Marroquin WAS FASTINGPERFORMED BY: CB [facility] Rgiqro3671 [address] RoadDublin [place] [id number] Metabolic Panel, Comprehensi ve (93173)Ordered By: Plastic Press Operator on 09-24-2021 Albumin [Mass/Vol] 4.2 g/dL Normal 3.8-4.9 [facility]; [facility] Work Phone: Comment on above: Sep 24, 2021; MANJINDER Marroquin WAS FASTINGPERFORMED BY: CB [facility] Ndddwv6376 [address]Dublin [place] [id number] Albumin/Globulin [Mass ratio] 1.2 {ratio} Normal 1.2-2.2 [facility]; [facility] Work Phone: Comment on above: Sep 24, 2021; MANJINDER Marroquin WAS FASTINGPERFORMED BY: CB [facility] Xxzwfb1797 [address]Dublin [place] [id number] ALP [Catalytic activity/Vol] 63 U/L Normal 44-121 [facility]; [facility] Work Phone: Comment on above: Please note refere nce interval change Sep 24, 2021; MANJINDER Marroquin WAS FASTINGPERFORMED BY: CB [facility] Sstlbc2139 [address]Dublin [place] [id number] ALT [Catalytic activity/Vol] 25 U/L Normal 0-44 [facility]; [facility] Work Phone: Comment on above: Sep 24, 2021; MANJINDER Marroquin WAS FASTINGPERFORMED BY: CB [facility] Aqzyqe7446 [address]Dublin [place] [id number] AST [Catalytic activity/Vol] 18 U/L Normal 0-40 [facility]; [facility] Work Phone: Comment on above: Sep 24, 2021; MANJINDER Marroquin WAS FASTINGPERFORMED BY: CB [facility] Uqxwli8671 [address]Dublin [place] [id number] Bilirubin [Mass/Vol] 0.6 mg/dL Normal 0.0-1.2 Comp [facility]ensive [facility]; [facility] Work Phone: Comment on above: Sep 24, 2021; MANJINDER Marroquin WAS FASTINGPERFORMED BY: CB [facility] Wrkknr4935 [address]Dublin [place] [id number] Calcium [Mass/Vol] 9.2 mg/dL Normal 8.7-10.2 [facility] Internal [facility]; [facility] Work Phone: Comment on above: Sep 24, 2021; MANJINDER Marroquin WAS FASTINGPERFORMED BY: CB [facility] Slinkm9349 [address]Dublin [place] [id number] Chloride [Moles/Vol] 103 mmol/L Normal 96-106 Comp rehensive Internal Medicine; [facility] Work Phone: Comment on above: Sep 24, 2021; MANJINDER Marroquin WAS FASTINGPERFORMED BY: [facility]6370 [facility] [id number] CO2 [Moles/Vol] 24 mmol/L Normal 20-29 [facility] Internal Medicine; [facility] Work Phone: Comment on above: Sep 24, 2021; MANJINDER Marroquin WAS FASTINGPERFORMED BY: [facility]6370 [facility] [id number] Creatinine [Mass/Vol] 0.94 mg/dL Normal 0.76-1.27 [facility] Internal Medicine; [facility] Work Phone: Comment on above: Sep 24, 2021; MANJINDER Marroquin WAS FASTINGPERFORMED BY: [facility]6370 [facility] [id number] GFR/1.73 sq M.predicted among blacks CKD-EPI (S/P/Bld) [Vol rate/Area] 102 mL/min/1.73 Normal [facility]; [facility] Work Phone: Comment on above: In accordance with recommendations from the NKF-ASN Task force, [facility] is in the process of updating its eGFR calculation to the 2020 CKD-EPI creatinine equation that estimates kidney function without a race variable. Sep 24, 2021; MANJINDER Marroquin WAS FASTINGPERFORMED BY: [facility]6370 [facility] [id number] GFR/1.73 sq M.predicted among non-blacks CKD-EPI (S/P/Bld) [Vol rate/Area] 88 mL/min/1.73 Normal [facility] Internal Medicine; [facility] Work Phone: Comment on above: Sep 24, 2021; MANJINDER Marroquin WAS FASTINGPERFORMED BY: [facility]6370 [facility] [id number] Globulin (S) [Mass/Vol] 3.4 g/dL Normal 1.5-4.5 [facility]; [facility] Work Phone: Comment on above: Sep 24, 2021; MANJINDER Marroquin WAS FASTINGPERFORMED BY: CB [facility] Kwxiew0741 [address] RoadDublin [place] [id number] Glucose [Mass/Vol] 100 mg/dL Abnormal 65-99 [facility]; [facility] Work Phone: Comment on above: Sep 24, 2021; MANJINDER Marroquin WAS FASTINGPERFORMED BY: CB [facility] Zdvnqr7417 [address]Dublin [place] [id number] Potassium [Moles/Vol] 4.9 mmol/L Normal 3.5-5.2 [facility] Internal Medicine; [facility] Work Phone: Comment on above: Sep 24, 2021; MANJINDER Marroquin WAS FASTINGPERFORMED BY: CB [facility] Ktvutw8379 [address] RoadDublin [place] [id number] Protein [Mass/Vol] 7.6 g/dL Normal 6.0-8.5 [facility]; [facility] Work Phone: Comment on above: Sep 24, 2021; MANJINDER Marroquin WAS FASTINGPERFORMED BY: CB [facility] Sniytm2316 [address]Dublin [place] [id number] Sodium [Moles/Vol] 140 mmol/L Normal 134-144 [facility]; [facility] Work Phone: Comment on above: Sep 24, 2021; MANJINDER Marroquin WAS FASTINGPERFORMED BY: CB [facility] Iyfzmz8371 [address] RoadDublin [place] [id number] Urea nitrogen [Mass/Vol] 12 mg/dL Normal 6-24 [facility]; [facility] Work Phone: Comment on above: Sep 24, 2021; MANJINDER Marroquin WAS FASTINGPERFORMED BY: CB [facility] Kmendf9593 [address]Dublin [place] [id number] Urea nitrogen/Creatinine [Mass ratio] 13 mg/mg Normal 9-20 [facility]; [facility] Work Phone: Comment on above: Sep 24, 2021; MANJINDER Marroquin WAS FASTINGPERFORMED BY: CB [facility] Mpqinq[address] [place] [id number] PSA (PROSTATE SPECIFIC ANTIG EN) (V76.44)Ordered By: Plastic Press Operator on 09-24-2021 Prostate specific Ag [Mass/Vol] 0.5 ng/mL Normal 0.0-4.0 [facility]; Comprehensive Internal Medicine Work Phone: Comment on above: Geovanna ECLIA methodol ogy. .According to the [place] [employer], Serum PSA shoulddecrease and remain at undetectable levels after radicalprostatectomy. The AUA defines biochemical recurrence as an initialPSA value 0.2 ng/mL or greater followed by a subsequent confirmatoryPSA value 0.2 ng/mL or greater.Values obtained with different assay methods or kits cannot be usedinterchangeably. Results cannot be interpreted as absolute evidenceof the presence or absence of malignant disease. Sep 24 2021; PATIENT WAS FASTINGPERFORMED BY: IntY Tqijzo7088 [address] Inoveight HoldingsUnc Health [place]dwellin [place] [id number] Metabolic Panel, Comprehensi ve ([id number])Ordered By: Plastic Press Operator on 08-24-2016 Albumin [Mass/Vol] 3.9 g/dL Normal 3.5-5.5 [facility]; [facility] Work Phone: Comment on above: PATIENT NOT FASTINGP ERFORMED BY: DeepDyve Ujqtrw8758 [address] [place] [id number] Albumin/Globulin [Mass ratio] 1.2 {ratio} Normal 1.1-2.5 [facility]; [facility] Work Phone: Comment on above: PATIENT NOT FASTINGP ERFORMED BY: GeoOP LabGetSocialrp Puscxj5081 [address] Inoveight HoldingsDublin [place] [id number] ALP [Catalytic activity/Vol] 63 U/L Normal 39-117 [facility]; [facility] Work Phone: Comment on above: PATIENT NOT FASTINGP ERFORMED BY: GeoOP LabGetSocialrp Zweprw8827 [address] Inoveight Holdingsblin [place] [id number] ALT [Catalytic activity/Vol] 37 U/L Normal 0-44 [facility]; [facility] Work Phone: Comment on above: PATIENT NOT FASTINGP ERFORMED BY: CB [facility] Mvrbht7036 [address] RoadDublin [place] [id number] AST [Catalytic activity/Vol] 20 U/L Normal 0-40 [facility]; [facility] Work Phone: Comment on above: PATIENT NOT FASTINGP ERFORMED BY: CB [facility] Kzbela0650 [address] RoadDublin [place] [id number] Bilirubin [Mass/Vol] 0.5 mg/dL Normal 0.0-1.2 Comp rehensive Internal Medicine; [facility] Work Phone: Comment on above: PATIENT NOT FASTINGP ERFORMED BY: CB [facility] Djqhki2601 Mck[address] RoadDublin [place] [id number] Calcium [Mass/Vol] 9.0 mg/dL Normal 8.7-10.2 [facility]; [facility] Work Phone: Comment on above: PATIENT NOT FASTINGP ERFORMED BY: CB [facility] Lntnpe0760 [address] RoadDublin [place] [id number] Chloride [Moles/Vol] 100 mmol/L Normal 96-106 Comp rehensive Internal Medicine; [facility] Work Phone: Comment on above: Please note refere nce interval change PATIENT NOT FASTINGP ERFORMED BY: CB [facility] Sqdurl5123 [address] RoadDublin [place] [id number] CO2 [Moles/Vol] 25 mmol/L Normal 18-29 [facility]; [facility] Work Phone: Comment on above: PATIENT NOT FASTINGP ERFORMED BY: CB [facility] Itfjpo7390 [address] RoadDublin [place] [id number] Creatinine [Mass/Vol] 0.87 mg/dL Normal 0.76-1.27 [facility]; [facility] Work Phone: Comment on above: PATIENT NOT FASTINGP ERFORMED BY: CB [facility] Lqwxis9691 [address] RoadDublin [place] [id number] GFR/1.73 sq M.predicted among blacks CKD-EPI (S/P/Bld) [Vol rate/Area] 113 mL/min/1.73 Normal [facility]; [facility] Work Phone: Comment on above: PATIENT NOT FASTINGP ERFORMED BY: DEE LabCoshen BellaNcymzg7983 Mckoy RoadDublin [place] [id number] GFR/1.73 sq M.predicted among non-blacks CKD-EPI (S/P/Bld) [Vol rate/Area] 98 mL/min/1.73 Normal [facility]; [facility] Work Phone: Comment on above: PATIENT NOT FASTINGP ERFORMED BY: CB [facility] Surawe9768 [address] Roadblin [place] [id number] Globulin (S) [Mass/Vol] 3.3 g/dL Normal 1.5-4.5 [facility]; [facility] Work Phone: Comment on above: PATIENT NOT FASTINGP ERFORMED BY: DEE [facility]Co Fhbbwq8851 Mckoy RoadUnc Health Caldwellin [place] [id number] Glucose [Mass/Vol] 90 mg/dL Normal 65-99 [facility]villeive [facility]; [facility] Work Phone: Comment on above: PATIENT NOT FASTINGP ERFORMED BY: CB [facility] Ukljqh[address] [facility] Centerblin [place] [id number] Potassium [Moles/Vol] 4.5 mmol/L Normal 3.5-5.2 [facility] prehensive Internal Medicine; [facility] Work Phone: Comment on above: PATIENT NOT FASTINGP ERFORMED BY: CB [facility] [address]zqmkh[address] [facility] Centerblin [place] [id number] Protein [Mass/Vol] 7.2 g/dL Normal 6.0-8.5 [facility] Internal [facility]; [facility] Work Phone: Comment on above: PATIENT NOT FASTINGP ERFORMED BY: CB [facility] Oyoxhr4214 [address] [facility] HospitalDublin [place] [id number] Sodium [Moles/Vol] 141 mmol/L Normal 134-144 [facility] hendersonvilleive Internal [facility]; [facility] Work Phone: Comment on above: Please note refere nce interval change PATIENT NOT FASTINGP ERFORMED BY: DEE [facility] Nzkzab6346 DFMSimAtrium Health Harrisburg [id number] Urea nitrogen [Mass/Vol] 18 mg/dL Normal 6-24 [facility]; [facility] Work Phone: Comment on above: PATIENT NOT FASTINGP ERFORMED BY: DEE [facility] Cllepe7739 [address] Inoveight HoldingsWashington Regional [facility] Center [id number] Urea nitrogen/Creatinine [Mass ratio] 21 mg/mg Abnormal 9-20 [facility]; [facility] Work Phone: Comment on above: PATIENT NOT FASTINGP ERFORMED BY: DEE Angie's List6370 MckoyLevel 3 CommunicationsWashington Regional Medical Center [id number] PSA (PROSTATE SPECIFIC ANTIG EN) (V76.44)Ordered By: Plastic Press Operator on 08-24-2016 Prostate specific Ag [Mass/Vol] 0.6 ng/mL Normal 0.0-4.0 [facility]; [facility] Work Phone: Comment on above: Geovanna ECLIA methodol ogy. .According to the [place] [employer], Serum PSA shoulddecrease and remain at undetectable levels after radicalprostatectomy. The AUA defines biochemical recurrence as an initialPSA value 0.2 ng/mL or greater followed by a subsequent confirmatoryPSA value 0.2 ng/mL or greater.Values obtained with different assay methods or kits cannot be usedinterchangeably. Results cannot be interpreted as absolute evidenceof the presence or absence of malignant disease. PATIENT NOT FASTINGP ERFORMED BY: VISEO Tahdma4520 [address] Inoveight HoldingsWashington Regional Medical Center [id number] CBC, Platelets & Auto Diff ( [id number])Ordered By: Plastic Press Operator on 08-13-2016 Basophils (Bld) [#/Vol] 0.0 10*3/uL Normal 0.0-0.2 [facility]; [facility] Work Phone: Comment on above: PATIENT WAS FASTINGP ERFORMED BY: CB [facility] Qcfhtt1615 [address] [facility] [id number]; OV 08/24 Basophils/100 WBC (Bld) 0 % Normal [facility]; [facility] Work Phone: Comment on above: PATIENT WAS FASTINGP ERFORMED BY: CB [facility] Arlphu8013 [address] RoadDublin [place] [id number]; OV 12/13 Eosinophils (Bld) [#/Vol] 0.4 10*3/uL Normal 0.0-0.4 [facility]; [facility] Work Phone: Comment on above: PATIENT WAS FASTINGP ERFORMED BY: CB [facility] Arppdc6000 [address] RoadDublin [place] [id number]; OV 12/13 Eosinophils/100 WBC (Bld) 5 % Normal [facility]; [facility] Work Phone: Comment on above: PATIENT WAS FASTINGP ERFORMED BY: CB [facility] Lzogtd6669 [address] RoadDublin [place] [id number]; OV 12/13 Erythrocyte distribution width (RBC) [Ratio] 14.1 % Normal 12.3-15.4 [facility]; [facility] Work Phone: Comment on above: PATIENT WAS FASTINGP ERFORMED BY: CB [facility] Mepegx6304 [address] RoadDublin [place] [id number]; OV 12/13 Hematocrit (Bld) [Volume fraction] 43.5 % Normal 37.5-51.0 [facility]; [facility] Work Phone: Comment on above: PATIENT WAS FASTINGP ERFORMED BY: CB [facility] Rwmkeo8212 [address] RoadDublin [place] [id number]; OV 12/13 Hemoglobin (Bld) [Mass/Vol] 14.6 g/dL Normal 12.6-17.7 [facility]; [facility] Work Phone: Comment on above: PATIENT WAS FASTINGP ERFORMED BY: CB [facility] Ibewpi2352 [address] RoadDublin [place] [id number]; OV 12/13 Immature granulocytes (Bld) [#/Vol] 0.0 10*3/uL Normal 0.0-0.1 [facility]; [facility] Work Phone: Comment on above: PATIENT WAS FASTINGP ERFORMED BY: CB [facility] Mvqndo1582 [address] RoadDublin [place] [id number]; OV 12/13 Immature granulocytes/100 WBC (Bld) 0 % Normal [facility]; [facility] Work Phone: Comment on above: PATIENT WAS FASTINGP ERFORMED BY: CB [facility] Ympbhi4057 [address] RoadDublin [place] [id number]; OV 12/13 Lymphocytes (Bld) [#/Vol] 1.7 10*3/uL Normal 0.7-3.1 [facility]; [facility] Work Phone: Comment on above: PATIENT WAS FASTINGP ERFORMED BY: CB [facility] Xxwfbo6272 [address] RoadDublin [place] [id number]; OV 12/ Lymphocytes/100 WBC (Bld) 24 % Normal [facility]; [facility] Work Phone: Comment on above: PATIENT WAS FASTINGP ERFORMED BY: CB [facility] Jiiocm4089 [address] RoadDublin [place] [id number]; OV 12/13 MCH (RBC) [Entitic mass] 30.3 pg Normal 26.6-33.0 [facility]; [facility] Work Phone: Comment on above: PATIENT WAS FASTINGP ERFORMED BY: CB [facility] Gwssjl4996 [address] RoadDublin [place] [id number]; OV 12/ MCHC (RBC) [Mass/Vol] 33.6 g/dL Normal 31.5-35.7 [facility] prehensive Internal Medicine; [facility] Work Phone: Comment on above: PATIENT WAS FASTINGP ERFORMED BY: CB [facility] Grzugn8470 [address] RoadDublin [place] [id number]; OV 12/13 MCV (RBC) [Entitic vol] 90 fL Normal 79-97 [facility]; [facility] Work Phone: Comment on above: PATIENT WAS FASTINGP ERFORMED BY: CB [facility] Lclxaf8135 [address] RoadDublin [place] [id number]; OV 12/13 Monocytes (Bld) [#/Vol] 0.7 10*3/uL Normal 0.1-0.9 [facility]; [facility] Work Phone: Comment on above: PATIENT WAS FASTINGP ERFORMED BY: CB [facility] Nyuaqh1255 [address] RoadDublin [place] [id number]; OV 12/13 Monocytes/100 WBC (Bld) 10 % Normal [facility]; [facility] Work Phone: Comment on above: PATIENT WAS FASTINGP ERFORMED BY: CB [facility] Zgnafi9538 [address] RoadDublin [place] [id number]; OV 12/13 Neutrophils (Bld) [#/Vol] 4.4 10*3/uL Normal 1.4-7.0 [facility]; [facility] Work Phone: Comment on above: PATIENT WAS FASTINGP ERFORMED BY: CB [facility] Avdqpq0700 [address] RoadDublin [place] [id number]; OV 12/13 Neutrophils/100 WBC (Bld) 61 % Normal [facility]; [facility] Work Phone: Comment on above: PATIENT WAS FASTINGP ERFORMED BY: CB [facility] Sdktec3332 [address] RoadDublin [place] [id number]; OV 12/13 Platelets (Bld) [#/Vol] 197 10*3/uL Normal 150-379 [facility]; [facility] Work Phone: Comment on above: PATIENT WAS FASTINGP ERFORMED BY: CB [facility] Pwosaq9362 [address] RoadDublin [place] [id number]; OV 12/13 RBC (Bld) [#/Vol] 4.82 10*6/uL Normal 4.14-5.80 Compr [facility] Internal Medicine; [facility] Work Phone: Comment on above: PATIENT WAS FASTINGP ERFORMED BY: CB [facility] Cjjudw3506 [address] RoadDublin [place] [id number]; OV 12/13 WBC (Bld) [#/Vol] 7.3 10*3/uL Normal 3.4-10.8 Compre [facility] Internal Medicine; [facility] Work Phone: Comment on above: PATIENT WAS FASTINGP ERFORMED BY: DEE [facility] Hmnvpv0534 [address] RoadDublin [place] [id number]; OV 08/24 Lipid Panel ([id number])Ordered B y: Plastic Press Operator on 08-13-2016 Cholesterol [Mass/Vol] 161 mg/dL Normal 100-199 [facility]; [facility] Work Phone: Comment on above: PATIENT WAS FASTINGP ERFORMED BY: CB [facility] Uobukb9530 [address] RoadDublin [place] [id number] Cholesterol in HDL [Mass/Vol] 43 mg/dL Normal [facility]; [facility] Work Phone: Comment on above: PATIENT WAS FASTINGP ERFORMED BY: DEE [facility] Bfhvhj7482 [address] RoadDublin [place] [id number] Cholesterol in LDL [Mass/Vol] 92 mg/dL Normal 0-99 [facility]; [facility] Work Phone: Comment on above: PATIENT WAS FASTINGP ERFORMED BY: DEE [facility] Pgpdut3565 [address] RoadDublin [place] [id number] Cholesterol in LDL/Cholesterol in HDL [Mass ratio] 2.1 {ratio_units} Normal 0.0-3.6 [facility]; [facility] Work Phone: Comment on above: LDL/HDL Ratio Men Wo men 1/2 Avg.Risk 1.0 1.5 Avg.Risk 3.6 3.2 2X Avg.Risk 6.2 5.0 3X Avg.Risk 8.0 6.1 PATIENT WAS FASTINGP ERFORMED BY: CB [facility] Xtvydh1797 [address] RoadDublin [place] [id number] Cholesterol in VLDL [Mass/Vol] 26 mg/dL Normal 5-40 [facility]; [facility] Work Phone: Comment on above: PATIENT WAS FASTINGP ERFORMED BY: CB [facility] Defsza5637 [address] RoadDublin [place] [id number] Triglyceride [Mass/Vol] 131 mg/dL Normal 0-149 [facility]; [facility] Work Phone: Comment on above: PATIENT WAS FASTINGP ERFORMED BY: DEE [facility] Gdxkpn8585 [address] [place] [id number] LIPID PANEL ([id number])Ordered B y: Plastic Press Operator on 05-07-2016 Cholesterol [Mass/Vol] 159 mg/dL Normal 100-199 [facility]; [facility] Work Phone: Comment on above: PATIENT WAS FASTINGP ERFORMED BY: CB [facility] Jjrqlv5351 [address] Inoveight HoldingsDublin [place] [id number] Cholesterol in HDL [Mass/Vol] 44 mg/dL Normal [facility]; [facility] Work Phone: Comment on above: According to ATP-III Guidelines, HDL-C >59 mg/dL is considered anegative risk factor for CHD. PATIENT WAS FASTINGP ERFORMED BY: DEE [facility] Gupnve0498 [address] Apricot Treesthe [facility] hospital [place] [id number] Cholesterol in LDL [Mass/Vol] 84 mg/dL Normal 0-99 [facility]; [facility] Work Phone: Comment on above: PATIENT WAS FASTINGP ERFORMED BY: DEE [facility] Rlhxpz8092 [address] Inoveight Holdingsblin [place] [id number] Cholesterol in LDL/Cholesterol in HDL [Mass ratio] 1.9 {ratio_units} Normal 0.0-3.6 [facility]; [facility] Work Phone: Comment on above: LDL/HDL Ratio Men Wo men 1/2 Avg.Risk 1.0 1.5 Avg.Risk 3.6 3.2 2X Avg.Risk 6.2 5.0 3X Avg.Risk 8.0 6.1 PATIENT WAS FASTINGP ERFORMED BY: CB [facility] Fnclnh8164 [address] Inoveight Holdingsblin [place] [id number] Cholesterol in VLDL [Mass/Vol] 31 mg/dL Normal 5-40 [facility]; [facility] Work Phone: Comment on above: PATIENT WAS FASTINGP ERFORMED BY: CB [facility] Tyoatj6755 [address] Inoveight HoldingsDublin [place] [id number] Triglyceride [Mass/Vol] 157 mg/dL Abnormal 0-149 [facility]; [facility] Work Phone: Comment on above: PATIENT WAS FASTINGP ERFORMED BY: DEE LabCoshen RojoSxuynb6843 [address] Roadblin [place] [id number] Metabolic Panel, Comprehensi ve ([id number])Ordered By: Plastic Press Operator on 05-07-2016 Albumin [Mass/Vol] 4.0 g/dL Normal 3.5-5.5 [facility]; [facility] Work Phone: Comment on above: PATIENT WAS FASTINGP ERFORMED BY: DEE LabCoshen Adoiiu1415 [address] RoadDublin [place] [id number] Information: [id number]; review in OV next week Albumin/Globulin [Mass ratio] 1.3 {ratio} Normal 1.1-2.5 [facility]; [facility] Work Phone: Comment on above: PATIENT WAS FASTINGP ERFORMED BY: DEE Maribel Bellalin6370 [address] Roadblin [place] [id number] Information: [id number]; review in OV next week ALP [Catalytic activity/Vol] 61 U/L Normal 39-117 [facility]; [facility] Work Phone: Comment on above: PATIENT WAS FASTINGP ERFORMED BY: DEE Nikolasshen Hlsgsa5183 [address] RoadDublin [place] [id number] Information: [id number]; review in OV next week ALT [Catalytic activity/Vol] 40 U/L Normal 0-44 [facility]; [facility] Work Phone: Comment on above: PATIENT WAS FASTINGP ERFORMED BY: DEE [facility] Ncbbqq7005 [address] RoadDublin [place] [id number] Information: [id number]; review in OV next week AST [Catalytic activity/Vol] 23 U/L Normal 0-40 [facility]; [facility] Work Phone: Comment on above: PATIENT WAS FASTINGP ERFORMED BY: DEE LabCoshen Xpvfwu3640 [address] RoadDublin [place] [id number] Information: [id number]; review in OV next week Bilirubin [Mass/Vol] 0.7 mg/dL Normal 0.0-1.2 Comp rehensive Internal Medicine; [facility] Work Phone: Comment on above: PATIENT WAS FASTINGP ERFORMED BY: DEE [facility] Wrxpkl3732 [address] [facility]in [place] [id number] Information: [id number]; review in OV next week Calcium [Mass/Vol] 9.1 mg/dL Normal 8.7-10.2 [facility]; [facility] Work Phone: Comment on above: PATIENT WAS FASTINGP ERFORMED BY: DEE [facility] Kwmywe2477 [address] [facility]in [place] [id number] Information: [id number]; review in OV next week Chloride [Moles/Vol] 99 mmol/L Normal 97-108 Comp rehensive Internal Medicine; [facility] Work Phone: Comment on above: PATIENT WAS FASTINGP ERFORMED BY: [facility] Wcsuxp4413 [address] [facility]in [place] [id number] Information: [id number]; review in OV next week CO2 [Moles/Vol] 26 mmol/L Normal 18-29 [facility] Internal Medicine; [facility] Work Phone: Comment on above: PATIENT WAS FASTINGP ERFORMED BY: [facility] Pfcglp0483 [address] [facility] [id number] Information: [id number]; review in OV next week Creatinine [Mass/Vol] 1.07 mg/dL Normal 0.76-1.27 [facility]erens[facility]; [facility] Work Phone: Comment on above: PATIENT WAS FASTINGP ERFORMED BY: [facility] Dszvvq3501 [address] [facility]in [place] [id number] Information: [id number]; review in OV next week GFR/1.73 sq M.predicted among blacks CKD-EPI (S/P/Bld) [Vol rate/Area] 91 mL/min/1.73 Normal [facility]; [facility] Work Phone: Comment on above: PATIENT WAS FASTINGP ERFORMED BY: DEE Maribel Rojo6370 [facility] [id number] Information: [id number]; review in OV next week GFR/1.73 sq M.predicted among non-blacks CKD-EPI (S/P/Bld) [Vol rate/Area] 79 mL/min/1.73 Normal [facility]; [facility] Work Phone: Comment on above: PATIENT WAS FASTINGP ERFORMED BY: DEE [facility]Saint [facility] Vtffsg5254 [facility] [id number] Information: [id number]; review in OV next week Globulin (S) [Mass/Vol] 3.2 g/dL Normal 1.5-4.5 [facility] Internal Medicine; [facility] Work Phone: Comment on above: PATIENT WAS FASTINGP ERFORMED BY: DEE [facility] Ptrhhw7876 [facility] [id number] Information: [id number]; review in OV next week Glucose [Mass/Vol] 89 mg/dL Normal 65-99 [facility]; [facility] Work Phone: Comment on above: PATIENT WAS FASTINGP ERFORMED BY: DEE [facility]6370 [facility] [id number] Information: [id number]; review in OV next week Potassium [Moles/Vol] 4.4 mmol/L Normal 3.5-5.2 [facility] prehensive Internal Medicine; [facility] Work Phone: Comment on above: PATIENT WAS FASTINGP ERFORMED BY: DEE LabSaint [facility] Jbtrxa7675 [facility] [id number] Information: [id number]; review in OV next week Protein [Mass/Vol] 7.2 g/dL Normal 6.0-8.5 [facility] Internal [facility]; [facility] Work Phone: Comment on above: PATIENT WAS FASTINGP ERFORMED BY: DEE [facility] Nvmnmi2191 [facility] [id number] Information: [id number]; review in OV next week Sodium [Moles/Vol] 142 mmol/L Normal 134-144 [facility]; [facility] Work Phone: Comment on above: PATIENT WAS FASTINGP ERFORMED BY: [facility] Kmqpsc6479 [facility] [id number] Information: [id number]; review in OV next week Urea nitrogen [Mass/Vol] 14 mg/dL Normal 6-24 [facility]; [facility] Work Phone: Comment on above: PATIENT WAS FASTINGP ERFORMED BY: DEE [facility] Rwumdd2778 [facility] [id number] Information: [id number]; review in OV next week Urea nitrogen/Creatinine [Mass ratio] 13 mg/mg Normal 9-20 [facility]; [facility] Work Phone: Comment on above: PATIENT WAS FASTINGP ERFORMED BY: [facility] Bmxhoo0576 [facility] [id number] Information: [id number]; review in OV next week Urinalysis, Office ([id number])Or dered By: Brenton Elder on 04-20-2016 Bilirubin Ql (U) Negative Normal Comprehe nsive Internal Medicine; [facility] Work Phone: Glucose Test strip (U) [Mass/Vol] Negative Normal [facility]; [facility] Work Phone: Hemoglobin Ql (U) Negative Normal Compreh ensive Internal Medicine; [facility] Work Phone: Ketones Ql (U) Negative Normal Comprehens sailaja Internal Medicine; [facility] Work Phone: Leukocyte esterase Test strip Ql (U) Negative Normal [facility]; [facility] Work Phone: Nitrite Ql (U) Negative Normal Comprehens sailaja Internal Medicine; [facility] Work Phone: pH (U) 5 [pH] Abnormal [facility]; [facility] Work Phone: Protein Ql (U) Negative Normal Comprehens sailaja Internal Medicine; [facility] Work Phone: Specific gravity (U) [Rel density] 1.025 1 Normal [facility]; [facility] Work Phone: Urobilinogen (24H U) [Mass/Time] Normal Normal [facility]; [facility] Work Phone: HEPATIC FUNCTION PANEL ([id number])Ordered By: Plastic Press Operator on 07-29-2014 Albumin [Mass/Vol] 4.1 g/dL Normal 3.5-5.5 [facility]; [facility] Work Phone: Comment on above: PATIENT WAS FASTINGP ERFORMED BY: DEE Rojo6370 [address] Inoveight HoldingsWashington Regional [facility] Center [id number] ALP [Catalytic activity/Vol] 62 U/L Normal 39-117 [facility]; [facility] Work Phone: Comment on above: PATIENT WAS FASTINGP ERFORMED BY: DEE Rojo6370 [address] Inoveight HoldingsWashington Regional Medical Center [id number] ALT [Catalytic activity/Vol] 27 U/L Normal 0-44 [facility]; [facility] Work Phone: Comment on above: PATIENT WAS FASTINGP ERFORMED BY: DEE LabDat BellaQxjuor[address]86 [address] Inoveight HoldingsUnc Health [place]dwellin [place] [id number] AST [Catalytic activity/Vol] 23 U/L Normal 0-40 [facility]; [facility] Work Phone: Comment on above: PATIENT WAS FASTINGP ERFORMED BY: DEE LabDta Rojo6370 [address] Inoveight HoldingsWashington [facility] [id number] Bilirubin [Mass/Vol] 0.8 mg/dL Normal 0.0-1.2 Comp [facility] Internal Medicine; [facility] Work Phone: Comment on above: PATIENT WAS FASTINGP ERFORMED BY: DEE [facility]6370 [facility] [id number] Bilirubin.direct [Mass/Vol] 0.20 mg/dL Normal 0.00-0.40 [facility]; [facility] Work Phone: Comment on above: PATIENT WAS FASTINGP ERFORMED BY: DEE Connor Rvjrar4421 [facility] [id number] Protein [Mass/Vol] 7.5 g/dL Normal 6.0-8.5 [facility]; [facility] Work Phone: Comment on above: PATIENT WAS FASTINGP ERFORMED BY: [facility]6370 [facility] [id number] Lipid Panel (02126)Ordered B y: Plastic Press Operator on 07-29-2014 Cholesterol [Mass/Vol] 176 mg/dL Normal 100-199 [facility]; [facility] Work Phone: Comment on above: PATIENT WAS FASTINGP ERFORMED BY: DEE [facility] Imsiai7730 [facility] [id number] Information: [id number] Cholesterol in HDL [Mass/Vol] 52 mg/dL Normal [facility]; [facility] Work Phone: Comment on above: According to ATP-III Guidelines, HDL-C >59 mg/dL is considered anegative risk factor for CHD. PATIENT WAS FASTINGP ERFORMED BY: [facility]6370 [facility] [id number] Information: [id number] Cholesterol in LDL [Mass/Vol] 109 mg/dL Abnormal 0-99 [facility]; [facility] Work Phone: Comment on above: PATIENT WAS FASTINGP ERFORMED BY: [facility] Parygr2628 [facility] [id number] Information: [id number],[id number] Cholesterol in LDL/Cholesterol in HDL [Mass ratio] 2.1 {ratio_units} Normal 0.0-3.6 [facility]; [facility] Work Phone: Comment on above: LDL/HDL Ratio Men Wo men 1/2 Avg.Risk 1.0 1.5 Avg.Risk 3.6 3.2 2X Avg.Risk 6.2 5.0 3X Avg.Risk 8.0 6.1 PATIENT WAS FASTINGP ERFORMED BY: [place] 2494570 [facility] [id number] Information: [id number] Cholesterol in VLDL [Mass/Vol] 15 mg/dL Normal 5-40 [facility]; [facility] Work Phone: Comment on above: PATIENT WAS FASTINGP ERFORMED BY: [address] [id number] Information: [id number],[id number] Triglyceride [Mass/Vol] 77 mg/dL Normal 0-149 [facility]; [facility] Work Phone: Comment on above: PATIENT WAS FASTINGP ERFORMED BY: [address] [id number] Information: [id number],[id number] Lyme Disease Antibody W/ Ref tona (84037)Ordered By: Plastic Press Operator on 05-08-2014 B. burgdorferi IgG+IgM Qn (S) {index_val} Normal 0.00-0.90 [facility]; [facility] Work Phone: Comment on above: Negative <0.91 Equiv ocal 0.91 - 1.09 Positive >1.09 Please note reference interval change PATIENT NOT FASTINGP ERFORMED BY: [place] 2494570 [facility] [id number] Systemic Lupus Profile (8623 5)Ordered By: Plastic Press Operator on 05-08-2014 Chromatin Ab Qn <0.2 Normal 0.0-0.9 [facility] Internal Medicine; [facility] Work Phone: Comment on above: PATIENT NOT FASTINGP ERFORMED BY: [place] 2494570 [facility] [id number] Information: [id number] DNA double strand Ab Qn (S) 1 [IU]/mL Normal 0-9 [facility]; [facility] Work Phone: Comment on above: Negative <5 Equivoca l 5 - 9 Positive >9 PATIENT NOT FASTINGP ERFORMED BY: DEE Rojo6370 [facility] [id number] Information: [id number] Rheumatoid factor Qn 6.5 [IU]/mL Normal 0.0-13.9 [facility] Internal Medicine; [facility] Work Phone: Comment on above: PATIENT NOT FASTINGP ERFORMED BY: DEE Bellalin6370 [facility] [id number] Information: [id number],[id number] Ribonucleoprotein extractable nuclear Ab Qn (S) 0.2 {AI} Normal 0.0-0.9 [facility]; [facility] Work Phone: Comment on above: PATIENT NOT FASTINGP ERFORMED BY: DEE Maribel Bellalin6370 [facility] [id number] Information: 451883,[id number] Sjogrens syndrome-A extractable nuclear Ab Qn (S) <0.2 Normal 0.0-0.9 [facility]; [facility] Work Phone: Comment on above: PATIENT NOT FASTINGP ERFORMED BY: DEE Nikolasshen Sjlyfy5016 [facility] [id number] Information: 617770,[id number] Sjogrens syndrome-B extractable nuclear Ab Qn (S) <0.2 Normal 0.0-0.9 [facility]; [facility] Work Phone: Comment on above: PATIENT NOT FASTINGP ERFORMED BY: DEE Bellalin6370 [facility] [id number] Information: 383461,Q85200 [place] extractable nuclear Ab Qn (S) <0.2 Normal 0.0-0.9 [facility]; [facility] Work Phone: Comment on above: PATIENT NOT FASTINGP ERFORMED BY: [facility]6370 [facility] [id number] Information: [id number] CBC with manual diff (97385) Ordered By: Plastic Press Operator on 04-22-2014 Basophils (Bld) [#/Vol] 0.0 10*3/uL Normal 0.0-0.2 [facility]; [facility] Work Phone: Comment on above: PATIENT WAS FASTINGP ERFORMED BY: [address] [id number] Information: [id number],[id number] Basophils/100 WBC (Bld) 0 % Normal 0-3 [facility]; [facility] Work Phone: Comment on above: PATIENT WAS FASTINGP ERFORMED BY: [address] [id number] Information: 251355,[id number] Eosinophils (Bld) [#/Vol] 0.2 10*3/uL Normal 0.0-0.4 [facility]; [facility] Work Phone: Comment on above: PATIENT WAS FASTINGP ERFORMED BY: [address] [id number] Information: [id number],[id number] Eosinophils/100 WBC (Bld) 3 % Normal 0-5 [facility]; [facility] Work Phone: Comment on above: PATIENT WAS FASTINGP ERFORMED BY: [address] [id number] Information: [id number] Erythrocyte distribution width (RBC) [Ratio] 13.8 % Normal 12.3-15.4 [facility]; [facility] Work Phone: Comment on above: PATIENT WAS FASTINGP ERFORMED BY: [place] 2494570 [facility] [id number] Information: [id number],[id number] Hematocrit (Bld) [Volume fraction] 48.5 % Normal 37.5-51.0 [facility]; [facility] Work Phone: Comment on above: PATIENT WAS FASTINGP ERFORMED BY: DEE Rojo6370 [facility] [id number] Information: [id number] Hemoglobin (Bld) [Mass/Vol] 16.4 g/dL Normal 12.6-17.7 [facility]; [facility] Work Phone: Comment on above: PATIENT WAS FASTINGP ERFORMED BY: DEE Connor Sxtvin24[address] [id number] Information: 909073,S43302 Immature granulocytes (Bld) [#/Vol] 0.0 10*3/uL Normal 0.0-0.1 [facility]; [facility] Work Phone: Comment on above: PATIENT WAS FASTINGP ERFORMED BY: DEE [facility]Saint [facility] Bqvomy5257[address] [id number] Information: 358333,Q59486 Immature granulocytes/100 WBC (Bld) 0 % Normal 0-2 [facility]; [facility] Work Phone: Comment on above: PATIENT WAS FASTINGP ERFORMED BY: DEE Connor Ebhowx7[address] [id number] Information: [id number] Lymphocytes (Bld) [#/Vol] 1.5 10*3/uL Normal 0.7-3.1 [facility]; [facility] Work Phone: Comment on above: PATIENT WAS FASTINGP ERFORMED BY: DEE [facility]otoH[facility]6370 [facility] [id number] Information: 978317,[id number] Lymphocytes/100 WBC (Bld) 22 % Normal 14-46 [facility]; [facility] Work Phone: Comment on above: PATIENT WAS FASTINGP ERFORMED BY: DEE SotoHills [facility]6370 [facility] [id number] Information: [id number],[id number] MCH (RBC) [Entitic mass] 30.2 pg Normal 26.6-33.0 [facility]; [facility] Work Phone: Comment on above: PATIENT WAS FASTINGP ERFORMED BY: DEE Rojo6370 [facility] [id number] Information: [id number] MCHC (RBC) [Mass/Vol] 33.8 g/dL Normal 31.5-35.7 [facility]; [facility] Work Phone: Comment on above: PATIENT WAS FASTINGP ERFORMED BY: DEE [address] [id number] Information: [id number] MCV (RBC) [Entitic vol] 89 fL Normal 79-97 [facility]; [facility] Work Phone: Comment on above: PATIENT WAS FASTINGP ERFORMED BY: DEE Charles[address] [id number] Information: [id number] Monocytes (Bld) [#/Vol] 0.7 10*3/uL Normal 0.1-0.9 [facility]; [facility] Work Phone: Comment on above: PATIENT WAS FASTINGP ERFORMED BY: DEE CharlesSaint [facility] Jhipzf1608 [facility] [id number] Information: [id number] Monocytes/100 WBC (Bld) 10 % Normal 4-12 [facility]; [facility] Work Phone: Comment on above: PATIENT WAS FASTINGP ERFORMED BY: [facility]6370 [facility] [id number] Information: [id number],[id number] Neutrophils (Bld) [#/Vol] 4.3 10*3/uL Normal 1.4-7.0 [facility]; [facility] Work Phone: Comment on above: PATIENT WAS FASTINGP ERFORMED BY: [place] 2494570 [facility] [id number] Information: 603475,[id number] Neutrophils/100 WBC (Bld) 65 % Normal 40-74 [facility]; [facility] Work Phone: Comment on above: PATIENT WAS FASTINGP ERFORMED BY: DEE Rojo6370 [facility] [id number] Information: [id number] Platelets (Bld) [#/Vol] 222 10*3/uL Normal 150-379 [facility]; [facility] Work Phone: Comment on above: PATIENT WAS FASTINGP ERFORMED BY: DEE [facility] Ygfnab7124[address] [id number] Information: 659786,[id number] RBC (Bld) [#/Vol] 5.43 10*6/uL Normal 4.14-5.80 [facility] Internal Medicine; [facility] Work Phone: Comment on above: PATIENT WAS FASTINGP ERFORMED BY: DEE Connor Cuiuyy9831 [facility] [id number] Information: 036847,[id number] WBC (Bld) [#/Vol] 6.7 10*3/uL Normal 3.4-10.8 [facility] Internal Medicine; [facility] Work Phone: Comment on above: PATIENT WAS FASTINGP ERFORMED BY: DEE [facility] Amoste4864 [facility] [id number] Information: 935171,[id number] Lipid Panel (68775)Ordered B y: Plastic Press Operator on 04-22-2014 Cholesterol [Mass/Vol] 258 mg/dL Abnormal 100-199 [facility]; [facility] Work Phone: Comment on above: PATIENT WAS FASTINGP ERFORMED BY: DEE Connor Japgwv2135 [facility] [id number] Cholesterol in HDL [Mass/Vol] 48 mg/dL Normal [facility]; [facility] Work Phone: Comment on above: According to ATP-III Guidelines, HDL-C >59 mg/dL is considered anegative risk factor for CHD. PATIENT WAS FASTINGP ERFORMED BY: DEE LabCo Qnohgp3072 Mckoy RoadDublin [place] [id number] Cholesterol in LDL [Mass/Vol] 178 mg/dL Abnormal 0-99 [facility]; [facility] Work Phone: Comment on above: PATIENT WAS FASTINGP ERFORMED BY: DEE LabCo Jkkrhw0770 [address] Roadblin [place] [id number] Cholesterol in LDL/Cholesterol in HDL [Mass ratio] 3.7 {ratio_units} Abnormal 0.0-3.6 [facility]; [facility] Work Phone: Comment on above: PATIENT WAS FASTINGP ERFORMED BY: DEE LabGeena Wneluz0140 [address]ck[address] RoadWashington Regional Medical Center [id number] Cholesterol in VLDL [Mass/Vol] 32 mg/dL Normal 5-40 [facility]; [facility] Work Phone: Comment on above: PATIENT WAS FASTINGP ERFORMED BY: DEE Nikolas Vhmsik5361 [facility] [id number] Triglyceride [Mass/Vol] 162 mg/dL Abnormal 0-149 [facility]; [facility] Work Phone: Comment on above: PATIENT WAS FASTINGP ERFORMED BY: DEE Maribel Bellalin6370 [facility] [id number] MICROALBUMINOrdered By: Syst em Journeyman Pipefitter on 04-22-2014 Albumin DL <= 20 mg/L (U) [Mass/Vol] 1.9 ug/mL Normal 0.0-17.0 [facility]; [facility] Work Phone: Comment on above: PATIENT WAS FASTINGP ERFORMED BY: LabCo Mbkmpr0129 [address] [facility] [place] [id number] Albumin/Creatinine (U) [Mass ratio] 2.9 {mg/g_creat} Normal 0.0-30.0 [facility]; [facility] Work Phone: Comment on above: PATIENT WAS FASTINGP ERFORMED BY: Lab[facility] Glverb8907 [address] [facility] [place] [id number] Creatinine (U) [Mass/Vol] 65.7 mg/dL Normal 22.0-328.0 [facility]; [facility] Work Phone: Comment on above: PATIENT WAS FASTINGP ERFORMED BY: DEE Rojo6370 [facility] [id number] Metabolic Panel, Comprehensi ve (62192)Ordered By: Plastic Press Operator on 04-22-2014 Albumin [Mass/Vol] 4.3 g/dL Normal 3.5-5.5 [facility]; [facility] Work Phone: Comment on above: PATIENT WAS FASTINGP ERFORMED BY: DEE Nikolas Wwumcu9257 [facility] [id number] Albumin/Globulin [Mass ratio] 1.3 {ratio} Normal 1.1-2.5 [facility]; [facility] Work Phone: Comment on above: PATIENT WAS FASTINGP ERFORMED BY: DEE Connor Rmuovu3542 [facility] [id number] ALP [Catalytic activity/Vol] 63 U/L Normal 39-117 [facility]; [facility] Work Phone: Comment on above: PATIENT WAS FASTINGP ERFORMED BY: DEE Bellalin6370 [facility] [id number] ALT [Catalytic activity/Vol] 34 U/L Normal 0-44 [facility]; [facility] Work Phone: Comment on above: PATIENT WAS FASTINGP ERFORMED BY: DEE Connor Dinrhk5026 [facility] [id number] AST [Catalytic activity/Vol] 23 U/L Normal 0-40 [facility]; [facility] Work Phone: Comment on above: PATIENT WAS FASTINGP ERFORMED BY: DEE LabGeena Fqlbdo1207 [facility] [id number] Bilirubin [Mass/Vol] 0.6 mg/dL Normal 0.0-1.2 Comp [facility]; [facility] Work Phone: Comment on above: PATIENT WAS FASTINGP ERFORMED BY: CB [facility] Robros8160 [address]ck[address] RoadDublin [place] [id number] Calcium [Mass/Vol] 9.3 mg/dL Normal 8.7-10.2 [facility] Internal [facility]; [facility] Work Phone: Comment on above: PATIENT WAS FASTINGP ERFORMED BY: CB [facility] Wttoqg0969 Mckoy RoadDublin [place] [id number] Chloride [Moles/Vol] 97 mmol/L Normal 97-108 Comp rehensive Internal Medicine; [facility] Work Phone: Comment on above: PATIENT WAS FASTINGP ERFORMED BY: CB [facility] Ufnfzd8939 Mckoy RoadDublin [place] [id number] CO2 [Moles/Vol] 24 mmol/L Normal 18-29 [facility] Internal Medicine; [facility] Work Phone: Comment on above: PATIENT WAS FASTINGP ERFORMED BY: CB [facility] Bmhdih5914 Mckoy RoadDublin [place] [id number] Creatinine [Mass/Vol] 1.01 mg/dL Normal 0.76-1.27 [facility]; [facility] Work Phone: Comment on above: PATIENT WAS FASTINGP ERFORMED BY: CB [facility] Gfcoep7008 Mckoy RoadDublin [place] [id number] GFR/1.73 sq M.predicted among blacks CKD-EPI (S/P/Bld) [Vol rate/Area] 99 mL/min/1.73 Normal [facility]; [facility] Work Phone: Comment on above: PATIENT WAS FASTINGP ERFORMED BY: CB [facility] Qnxylt7738 [address] RoadDublin [place] [id number] GFR/1.73 sq M.predicted among non-blacks CKD-EPI (S/P/Bld) [Vol rate/Area] 86 mL/min/1.73 Normal [facility]; [facility] Work Phone: Comment on above: PATIENT WAS FASTINGP ERFORMED BY: CB [facility] Uknwjn4919 [address] RoadDublin [place] [id number] Globulin (S) [Mass/Vol] 3.3 g/dL Normal 1.5-4.5 [facility] Internal Medicine; [facility] Work Phone: Comment on above: PATIENT WAS FASTINGP ERFORMED BY: DEE Maribel Rojo6370 [address] Roadblin [place] [id number] Glucose [Mass/Vol] 91 mg/dL Normal 65-99 [facility] Internal Medicine; [facility] Work Phone: Comment on above: PATIENT WAS FASTINGP ERFORMED BY: DEE LabCo Jqlpbt2815 Mckoy RoadUnc Health Caldwellin [place] [id number] Potassium [Moles/Vol] 4.3 mmol/L Normal 3.5-5.2 [facility] Internal Medicine; [facility] Work Phone: Comment on above: PATIENT WAS FASTINGP ERFORMED BY: DEE LabSaint [facility] Umxdig5600 [address]ck[address] RoadUnc Health Caldwellin [place] [id number] Protein [Mass/Vol] 7.6 g/dL Normal 6.0-8.5 [facility] Internal [facility]; [facility] Work Phone: Comment on above: PATIENT WAS FASTINGP ERFORMED BY: DEE LabSaint [facility] Irtkug[address] [facility] Centerblin [place] [id number] Sodium [Moles/Vol] 137 mmol/L Normal 134-144 [facility] Internal [facility]; [facility] Work Phone: Comment on above: PATIENT WAS FASTINGP ERFORMED BY: LabSaint [facility] Tedshf1482 [address]ck[address] RoadUnc Health Caldwellin [place] [id number] Urea nitrogen [Mass/Vol] 19 mg/dL Normal 6-24 [facility]; [facility] Work Phone: Comment on above: PATIENT WAS FASTINGP ERFORMED BY: DEE LabCo Pnzzsr[address] [facility] Centerbl[facility] [place] [id number] Urea nitrogen/Creatinine [Mass ratio] 19 mg/mg Normal 9-20 [facility]; [facility] Work Phone: Comment on above: PATIENT WAS FASTINGP ERFORMED BY: DEE LabCo Rvyieq8887 [facility] [id number] PSA (PROSTATE SPECIFIC ANTIG EN) (97550)Ordered By: Plastic Press Operator on 04-22-2014 Prostate specific Ag [Mass/Vol] 0.6 ng/mL Normal 0.0-4.0 [facility] Internal Medicine; [facility] Work Phone: Comment on above: Geovanna ECLIA methodol ogy. .According to the [place] [employer], Serum PSA shoulddecrease and remain at undetectable levels after radicalprostatectomy. The AUA defines biochemical recurrence as an initialPSA value 0.2 ng/mL or greater followed by a subsequent confirmatoryPSA value 0.2 ng/mL or greater.Values obtained with different assay methods or kits cannot be usedinterchangeably. Results cannot be interpreted as absolute evidenceof the presence or absence of malignant disease. PATIENT WAS FASTINGP ERFORMED BY: From The Bench6370 [facility] [id number] TSH ([id number])Ordered By: Pushkart Journeyman Pipefitter on 04-22-2014 TSH Qn 1.090 {uIU/mL} Normal 0.450-4.500 [facility] Internal Medicine; [facility] Work Phone: Comment on above: PATIENT WAS FASTINGP ERFORMED BY: From The Bench6370 [address] [facility] HospitalVyconAtrium Health Harrisburg [id number] Lyme Disease Antibody W/ Ref tona (30841)Ordered By: Plastic Press Operator on 03-20-2013 Lyme Disease Antibody W/ Reflex (76446) <0.91 Normal 0.00-0.90 [facility] Internal Medicine; [facility] Work Phone: Comment on above: Negative <0.91 Equiv ocal 0.91 - 1.09 Positive >1.09 Note: The CDC currently advises that Western blot testing be performed following all equivocal or positive EIA results. Final diagnosis should include appropriate clinical findings and a positive EIA which is also positive by Western blot. PATIENT NOT FASTINGP ERFORMED BY: eVestmentlin6370 [facility] [id number] BY: [address] [id number] Lyme Disease Antibody W/ Reflex (19915) Negative Normal [facility]; [facility] Work Phone: Comment on above: PATIENT NOT FASTINGP ERFORMED BY: FameBit70 [facility] [id number] BY: [employer] [id number] METABOLIC PANEL, COMPREHENSI VE (58685)Ordered By: Plastic Press Operator on 03-20-2013 Albumin [Mass/Vol] 4.3 g/dL Normal 3.5-5.5 [facility] Internal Medicine; [facility] Work Phone: Comment on above: PATIENT NOT FASTINGP ERFORMED BY: From [employer]6370 [facility] [id number] BY: [employer] [address] [id number] Information: [id number],[id number] Albumin/Globulin [Mass ratio] 1.4 {ratio} Normal 1.1-2.5 [facility]; [facility] Work Phone: Comment on above: PATIENT NOT FASTINGP ERFORMED BY: From [employer] Bench6370 [facility] [id number] BY: [employer] [address] [id number] Information: [id number] ALP [Catalytic activity/Vol] 61 U/L Normal 25-150 [facility]; [facility] Work Phone: Comment on above: Effective March 26, 2013 the reference interval for Alkaline Phosphatase, S will be changing to: Age Male Female 0 - 1 day 45 - 111 45 - 111 2 - 5 days 46 - 119 46 - 119 6 - 10 days 48 - 229 48 - 229 11 - 30 days 59 - 414 59 - 414 1 - 6 months 91 - 445 91 - 445 7 - 12 months 124 - 341 124 - 341 1 - 3 years 130 - 317 130 - 317 4 - 6 years 133 - 309 133 - 309 7 - 12 years 134 - 349 134 - 349 13 years 143 - 396 68 - 209 14 years 107 - 340 62 - 149 15 years 84 - 254 54 - 121 16 years 71 - 186 49 - 108 17 years 61 - 146 45 - 101 18 years 56 - 127 43 - 101 19 - 60 years 44 - 102 42 - 107 61 - 70 years 44 - 103 47 - 112 >70 years 44 - 105 45 - 108 PATIENT NOT FASTINGP ERFORMED BY: CB [facility] Azighe[address] [facility] [id number] BY: [address] [id number] Information: [id number] ALT [Catalytic activity/Vol] 29 U/L Normal 0-44 [facility]; [facility] Work Phone: Comment on above: PATIENT NOT FASTINGP ERFORMED BY: DEE [facility] Rkvgfw2554 [facility] [id number] BY: [address] [id number] Information: [id number] AST [Catalytic activity/Vol] 22 U/L Normal 0-40 [facility]; [facility] Work Phone: Comment on above: PATIENT NOT FASTINGP ERFORMED BY: DEE [facility] Llsajx1081 [facility] [id number] BY: [address] [id number] Information: [id number] Bilirubin [Mass/Vol] 0.3 mg/dL Normal 0.0-1.2 Comp [facility]; [facility] Work Phone: Comment on above: PATIENT NOT FASTINGP ERFORMED BY: CB [facility] Fktypa4942 [facility] [id number] BY: [address] [id number] Information: [id number] Calcium [Mass/Vol] 9.3 mg/dL Normal 8.7-10.2 [facility]; [facility] Work Phone: Comment on above: PATIENT NOT FASTINGP ERFORMED BY: CB [facility] Gomjox2433 [address]ck[address] RoadDublin [place] [id number] BY: LabCo[address] [id number] Information: [id number] Chloride [Moles/Vol] 99 mmol/L Normal 97-108 [facility] rehensive Internal Medicine; [facility] Work Phone: Comment on above: PATIENT NOT FASTINGP ERFORMED BY: CB [facility] Urqjqn1822 [address]ck[address] RoadDublin [place] [id number] BY: Lab[address] [id number] Information: [id number] CO2 [Moles/Vol] 25 mmol/L Normal 19-28 [facility] Internal Medicine; [facility] Work Phone: Comment on above: PATIENT NOT FASTINGP ERFORMED BY: CB [facility] Jpjnnu3671 [address] RoadDuAtrium Health Harrisburg [id number] BY: Lab[address] [id number] Information: [id number],[id number] Creatinine [Mass/Vol] 1.03 mg/dL Normal 0.76-1.27 [facility]; [facility] Work Phone: Comment on above: PATIENT NOT FASTINGP ERFORMED BY: CB [facility] Nwjxdl2273 [address] [facility] [id number] BY: Lab[address] [id number] Information: [id number] GFR/1.73 sq M.predicted among blacks CKD-EPI (S/P/Bld) [Vol rate/Area] 97 mL/min/1.73 Normal [facility]; [facility] Work Phone: Comment on above: PATIENT NOT FASTINGP ERFORMED BY: CB [facility] Viyhjf8283 [address]ck[address] RoadDuAtrium Health Harrisburg [id number] BY: LabCo[address] [id number] Information: 692522,[id number] GFR/1.73 sq M.predicted among non-blacks CKD-EPI (S/P/Bld) [Vol rate/Area] 84 mL/min/1.73 Normal [facility]; [facility] Work Phone: Comment on above: PATIENT NOT FASTINGP ERFORMED BY: [facility] Kblknr7778 [facility] [id number] BY: [employer] [id number] Information: 354202,[id number] Globulin (S) [Mass/Vol] 3.1 g/dL Normal 1.5-4.5 [facility]; [facility] Work Phone: Comment on above: PATIENT NOT FASTINGP ERFORMED BY: [facility] Jppelw8426 [facility] [id number] BY: [employer] [id number] Information: [id number],[id number] Glucose [Mass/Vol] 103 mg/dL Abnormal 65-99 [facility] Internal Medicine; [facility] Work Phone: Comment on above: PATIENT NOT FASTINGP ERFORMED BY: [facility] Pijfon0054 [facility] [id number] BY: [employer] [id number] Information: 394961,I33197 Potassium [Moles/Vol] 4.0 mmol/L Normal 3.5-5.2 [facility] Internal Medicine; [facility] Work Phone: Comment on above: PATIENT NOT FASTINGP ERFORMED BY: [facility] Itssci8413 [facility] [id number] BY: [address] [id number] Information: [id number],[id number] Protein [Mass/Vol] 7.4 g/dL Normal 6.0-8.5 [facility] Internal Medicine; [facility] Work Phone: Comment on above: PATIENT NOT FASTINGP ERFORMED BY: CB [facility] Ildpjt0173 [address] RoadDublin [place] [id number] BY: [facility]Co[address] [id number] Information: 792492,[id number] Sodium [Moles/Vol] 138 mmol/L Normal 134-144 [facility] Internal Medicine; [facility] Work Phone: Comment on above: PATIENT NOT FASTINGP ERFORMED BY: CB [facility] Qffebm7172 [address] RoadWashington Regional Medical Center [id number] BY: LabCo[address] [id number] Information: [id number],[id number] Urea nitrogen [Mass/Vol] 19 mg/dL Normal 6-24 [facility]; [facility] Work Phone: Comment on above: PATIENT NOT FASTINGP ERFORMED BY: CB [facility] Euslal4559 [address] [facility] [id number] BY: [facility] [address] [id number] Information: 862431,[id number] Urea nitrogen/Creatinine [Mass ratio] 18 mg/mg Normal 9-20 [facility]; [facility] Work Phone: Comment on above: PATIENT NOT FASTINGP ERFORMED BY: CB [facility] Daqsfy1508 [address] [facility] [id number] BY: [facility]Co[address] [id number] Information: [id number],[id number] MICROALBUMINOrdered By: Syst em Journeyman Pipefitter on 03-20-2013 Albumin DL <= 20 mg/L (U) [Mass/Vol] 4.0 ug/mL Normal 0.0-17.0 [facility]; [facility] Work Phone: Comment on above: PATIENT NOT FASTINGP ERFORMED BY: DEE [employer] Lhchxh0424 [facility] [id number] BY: Atraverda[address] [id number] Albumin/Creatinine (U) [Mass ratio] 3.7 {mg/g_creat} Normal 0.0-30.0 [facility]; [facility] Work Phone: Comment on above: PATIENT NOT FASTINGP ERFORMED BY: DEE [employer]Get[employer] Iazqbw7379 [facility] [id number] BY: [address] [id number] Creatinine (U) [Mass/Vol] 106.9 mg/dL Normal 22.0-328.0 [facility]; [facility] Work Phone: Comment on above: PATIENT NOT FASTINGP ERFORMED BY: DEE LabGet[employer] Yrmbim2795 [facility] [id number] BY: Atra[address]da[address] [id number] RHEUMATOID FACTOR-QUANT (744 31)Ordered By: Plastic Press Operator on 03-20-2013 Rheumatoid factor Qn 2.8 [IU]/mL Normal 0.0-13.9 [facility] prehensive Internal Medicine; [facility] Work Phone: Comment on above: PATIENT NOT FASTINGP ERFORMED BY: DEE LabGet[employer] Kuvcpa8376 [facility] [id number] BY: [address] [id number] SED RATE ERYTHROCYTE (43359) Ordered By: Plastic Press Operator on 03-20-2013 ESR (Bld) [Velocity] 4 mm/h Normal 0-30 [facility]; [facility] Work Phone: Comment on above: PATIENT NOT FASTINGP ERFORMED BY: DEE [employer] Cdyxuf4525 [facility] [id number] BY: [address] [id number] TESTOSTERONE FREE (88182)Ord ered By: Plastic Press Operator on 03-20-2013 Testosterone Free [Mass/Vol] 9.8 pg/mL Normal 7.2-24.0 [facility]; [facility] Work Phone: Comment on above: PATIENT NOT FASTINGP ERFORMED BY: [employer]6370 [facility] [id number] BY: [employer] [id number] TSH (66369)Ordered By: Daniel m Journeyman Pipefitter on 03-20-2013 TSH Qn 1.110 {uIU/mL} Normal 0.450-4.500 Comprehen sive Internal Medicine; [facility] Work Phone: Comment on above: PATIENT NOT FASTINGP ERFORMED BY: [employer]6370 [facility] [id number] BY: [employer] [address] [id number] Urinalysis, Office (56233)Or dered By: Antonia Menendez on 09-13-2012 Bilirubin Ql (U) Negative Normal Comprehe nsive Internal Medicine; [facility] Work Phone: Glucose Test strip (U) [Mass/Vol] Negative Normal [facility]; [facility] Work Phone: Hemoglobin Ql (U) Negative Normal Compreh ensive Internal Medicine; [facility] Work Phone: Ketones Ql (U) Negative Normal Comprehens sailaja Internal Medicine; [facility] Work Phone: Leukocyte esterase Test strip Ql (U) Negative Normal [facility]; [facility] Work Phone: Nitrite Ql (U) Negative Normal Comprehens sailaja Internal Medicine; [facility] Work Phone: pH (U) 6.0 [pH] Normal [facility]; [facility] Work Phone: Protein Ql (U) Negative Normal Comprehens sailaja Internal Medicine; [facility] Work Phone: Specific gravity (U) [Rel density] 1.025 1 Normal [facility]; [facility] Work Phone: Urobilinogen (24H U) [Mass/Time] Normal Normal [facility]; [facility] Work Phone: Urinalysis, Office (55687)Or dered By: Maylin Castellano on 05-25-2012 Bilirubin Ql (U) Negative Normal Comprehe nsive Internal Medicine; [facility] Work Phone: Glucose Test strip (U) [Mass/Vol] Negative Normal [facility]; [facility] Work Phone: Hemoglobin Ql (U) Negative Normal Compreh ensive Internal Medicine; [facility] Work Phone: Ketones Ql (U) Negative Normal Comprehens sailaja Internal Medicine; [facility] Work Phone: Leukocyte esterase Test strip Ql (U) Negative Normal [facility]; [facility] Work Phone: Nitrite Ql (U) Negative Normal Comprehens [facility] Internal Medicine; [facility] Work Phone: pH (U) 5.0 [pH] Normal [facility]; [facility] Work Phone: Protein Ql (U) Negative Normal Comprehens sailaja Internal Medicine; [facility] Work Phone: Specific gravity (U) [Rel density] 1.025 1 Normal [facility]; [facility] Work Phone: Urobilinogen (24H U) [Mass/Time] Normal Normal [facility]; [facility] Work Phone: PARAMJIT (ANTINUCLEAR ANTIBODY) ( 08638)Ordered By: Plastic Press Operator on 09-23-2011 Nuclear Ab Ql (S) Negative Normal Compreh ensive Internal Medicine; [facility] Work Phone: Comment on above: PATIENT NOT FASTINGP ERFORMED BY: LabCoVirtua VoorheesRgwwkh5417 [facility] [id number] C-REACTIVE PROTEIN (43041)Or dered By: Plastic Press Operator on 09-23-2011 CRP [Mass/Vol] 4.6 mg/L Normal 0.0-4.9 Comprehens [facility] Internal Medicine; [facility] Work Phone: Comment on above: PATIENT NOT FASTINGP ERFORMED BY: DEE Rojo6370 DFMSimblin [place] [id number] CALCIFIDIOL (78664) VIT D 25 Ordered By: Plastic Press Operator on 09-23-2011 25-hydroxyvitamin D [Mass/Vol] 31.7 ng/mL Normal 30.0-100.0 [facility]; [facility] Work Phone: Comment on above: Vitamin D deficiency has been defined by the [employer] of[employer] and an Endocrine Society practice guideline as alevel of serum 25-OH vitamin D less than 20 ng/mL (1,2).The Endocrine Society went on to further define vitamin Dinsufficiency as a level between 21 and 29 ng/mL (2).1. IOM ([employer] of [employer]). 2011. Dietary reference intakes for calcium and D. [place]: The National Academies Press.2. Thom MF, Kinjal REYNOSO, Maximiliano ALANIZ, et al. Evaluation, treatment, and prevention of vitamin D deficiency: an Endocrine Society clinical practice guideline. JCEM. 2010; 96(7):1911-30. PATIENT NOT FASTINGP ERFORMED BY: DEE [employer] List6370 DFMSimbl[address] [place] [id number] CBC (AUTO) (36611)Ordered By : Plastic Press Operator on 09-23-2011 Erythrocyte distribution width (RBC) [Ratio] 13.4 % Normal 11.7-15.0 [facility]; [facility] Work Phone: Comment on above: PATIENT NOT FASTINGP ERFORMED BY: DEE [facility] Rkawww7[address] Inoveight HoldingsDublin [place] [id number] Hematocrit (Bld) [Volume fraction] 49.0 % Normal 36.0-50.0 [facility]; [facility] Work Phone: Comment on above: PATIENT NOT FASTINGP ERFORMED BY: [employer] Vzkzfa23[address] Inoveight HoldingsDublin [place] [id number] Hemoglobin (Bld) [Mass/Vol] 16.6 g/dL Normal 12.5-17.0 [facility]; [facility] Work Phone: Comment on above: PATIENT NOT FASTINGP ERFORMED BY: CB [facility] Piwpwi1276 [address] RoadDublin [place] [id number] MCH (RBC) [Entitic mass] 30.7 pg Normal 27.0-34.0 [facility]; [facility] Work Phone: Comment on above: PATIENT NOT FASTINGP ERFORMED BY: CB [facility] Bqjvwr1146 [address] RoadDublin [place] [id number] MCHC (RBC) [Mass/Vol] 33.9 g/dL Normal 32.0-36.0 [facility]; [facility] Work Phone: Comment on above: PATIENT NOT FASTINGP ERFORMED BY: CB [facility] Ozztpp9320 [address] RoadDublin [place] [id number] MCV (RBC) [Entitic vol] 91 fL Normal 80-98 [facility]; [facility] Work Phone: Comment on above: PATIENT NOT FASTINGP ERFORMED BY: CB [facility] Rchesw5912 [address] RoadDublin [place] [id number] Platelets (Bld) [#/Vol] 220 10*3/uL Normal 140-415 [facility]; [facility] Work Phone: Comment on above: PATIENT NOT FASTINGP ERFORMED BY: CB [facility] Foppxh3288 [address] RoadDublin [place] [id number] RBC (Bld) [#/Vol] 5.41 10*6/uL Normal 4.10-5.60 [facility] ehensive Internal Medicine; [facility] Work Phone: Comment on above: PATIENT NOT FASTINGP ERFORMED BY: CB [facility] Rtlnal8885 [address] RoadDublin [place] [id number] WBC (Bld) [#/Vol] 6.9 10*3/uL Normal 4.0-10.5 [facility] Internal Medicine; [facility] Work Phone: Comment on above: PATIENT NOT FASTINGP ERFORMED BY: CB [facility] Chuuyv7457 [address] RoadDublin [place] [id number] Folate (01478)Ordered By: stem Journeyman Pipefitter on 09-23-2011 Folate [Mass/Vol] ng/mL Normal Compreh ensive Internal Medicine; [facility] Work Phone: Comment on above: Indeterminate: 2.2 - 3.0 Deficient: <2.2 PATIENT NOT FASTINGP ERFORMED BY: DEE [facility] Hsgeoe1656 [address] [facility] [id number] METABOLIC PANEL, COMPREHENSI VE (35789)Ordered By: Plastic Press Operator on 09-23-2011 Albumin [Mass/Vol] 4.3 g/dL Normal 3.5-5.5 Compre hensive Internal Medicine; [facility] Work Phone: Comment on above: PATIENT NOT FASTINGP ERFORMED BY: DEE [facility] Zqymcp6236 [facility] [id number] Information: 884105,[id number] Albumin/Globulin [Mass ratio] 1.4 {ratio} Normal 1.1-2.5 [facility]; [facility] Work Phone: Comment on above: PATIENT NOT FASTINGP ERFORMED BY: CB [facility] Zgnjru0038 [facility]oy[facility] [id number] Information: 773959,V03106 ALP [Catalytic activity/Vol] 67 U/L Normal 25-150 [facility]; [facility] Work Phone: Comment on above: PATIENT NOT FASTINGP ERFORMED BY: CB [facility] Weopoo5220 [facility] [id number] Information: [id number],[id number] ALT [Catalytic activity/Vol] 35 U/L Normal 0-55 [facility]; [facility] Work Phone: Comment on above: PATIENT NOT FASTINGP ERFORMED BY: DEE [facility] Bdhovb8133 [facility]oyCapital [facility] [id number] Information: [id number] AST [Catalytic activity/Vol] 23 U/L Normal 0-40 [facility]; [facility] Work Phone: Comment on above: PATIENT NOT FASTINGP ERFORMED BY: DEE Rojo6370 [address] [facility] [id number] Information: 380304,E66782 Bilirubin [Mass/Vol] 0.5 mg/dL Normal 0.0-1.2 [facility] rehensive Internal Medicine; [facility] Work Phone: Comment on above: PATIENT NOT FASTINGP ERFORMED BY: DEE LabCoshen BellaRqagqq6948 [facility] [id number] Information: 620028,[id number] Calcium [Mass/Vol] 9.6 mg/dL Normal 8.7-10.2 [facility] Internal Medicine; [facility] Work Phone: Comment on above: PATIENT NOT FASTINGP ERFORMED BY: DEE Bellalin6370 [facility] [id number] Information: 096771,X78707 Chloride [Moles/Vol] 99 mmol/L Normal 97-108 [facility] rehensive Internal Medicine; [facility] Work Phone: Comment on above: PATIENT NOT FASTINGP ERFORMED BY: DEE Connor Ezfomr7106 [facility] [id number] Information: 126771,J69655 CO2 [Moles/Vol] 25 mmol/L Normal 20-32 [facility] Internal Medicine; [facility] Work Phone: Comment on above: PATIENT NOT FASTINGP ERFORMED BY: DEE ConnorVirtua VoorheesBzcucb3446 [facility] [id number] Information: 118182,W50649 Creatinine [Mass/Vol] 0.99 mg/dL Normal 0.76-1.27 [facility] prehensive Internal Medicine; [facility] Work Phone: Comment on above: PATIENT NOT FASTINGP ERFORMED BY: DEE Connor Dtsofi6133 [facility] [id number] Information: 751866,K85304 GFR/1.73 sq M.predicted among blacks MDRD (S/P/Bld) [Vol rate/Area] 103 mL/min/{1.73_m2} Normal Comprehensi Internal Medicine; [facility] Work Phone: Comment on above: Note: A persistent e GFR <60 mL/min/1.73 m2 (3 months or more) mayindicate chronic kidney disease. An eGFR >59 mL/min/1.73 m2 with anelevated urine protein also may indicate chronic kidney disease.Calculated using CKD-EPI formula. PATIENT NOT FASTINGP ERFORMED BY: CB [facility] Nwbmfc4913 [address] [facility] [id number] Information: 068003,X17273 GFR/1.73 sq M.predicted among non-blacks CKD-EPI (S/P/Bld) [Vol rate/Area] 89 mL/min/1.73 Normal [facility]; [facility] Work Phone: Comment on above: PATIENT NOT FASTINGP ERFORMED BY: CB [facility] Ohxjkc9950 [address] [facility] [id number] Information: 033116,[id number] Globulin (S) [Mass/Vol] 3.0 g/dL Normal 1.5-4.5 [facility]; [facility] Work Phone: Comment on above: PATIENT NOT FASTINGP ERFORMED BY: CB [facility] Gcchom9950 [facility] [id number] Information: 769980,R74415 Glucose [Mass/Vol] 101 mg/dL Abnormal 65-99 Compre [facility] Internal Medicine; [facility] Work Phone: Comment on above: PATIENT NOT FASTINGP ERFORMED BY: CB [facility] Fnxynf6101 [address] [facility] [id number] Information: 179229,V48471 Potassium [Moles/Vol] 4.1 mmol/L Normal 3.5-5.2 [facility]; [facility] Work Phone: Comment on above: PATIENT NOT FASTINGP ERFORMED BY: CB [facility] Apriow3244 [address] [facility] [id number] Information: 519873,H27424 Protein [Mass/Vol] 7.3 g/dL Normal 6.0-8.5 [facility] Internal Medicine; [facility] Work Phone: Comment on above: PATIENT NOT FASTINGP ERFORMED BY: DEE Rojo6370 [facility] [id number] Information: 799805,P46978 Sodium [Moles/Vol] 137 mmol/L Normal 134-144 [facility] Internal Medicine; [facility] Work Phone: Comment on above: Please note refere nce interval change PATIENT NOT FASTINGP ERFORMED BY: DEE LabCoshen BellaDmoyqi9919 [address] [facility] [id number] Information: 668778,P73140 Urea nitrogen [Mass/Vol] 14 mg/dL Normal 6-24 [facility]; [facility] Work Phone: Comment on above: PATIENT NOT FASTINGP ERFORMED BY: DEE Connor Aixmwu3295 [facility] [id number] Information: 795620,[id number] Urea nitrogen/Creatinine [Mass ratio] 14 mg/mg Normal 9-20 [facility]; [facility] Work Phone: Comment on above: PATIENT NOT FASTINGP ERFORMED BY: DEE Connor Iuojvu6819 [facility] [id number] Information: 730043,[id number] RHEUMATOID FACTOR-QUANT (812 31)Ordered By: Plastic Press Operator on 09-23-2011 Rheumatoid factor Qn 7.0 [IU]/mL Normal 0.0-13.9 [facility] prehensive Internal Medicine; [facility] Work Phone: Comment on above: PATIENT NOT FASTINGP ERFORMED BY: DEE [facility] Molbmp9062 [address] [facility] [id number] SED RATE ERYTHROCYTE (00895) Ordered By: Plastic Press Operator on 09-23-2011 ESR (Bld) [Velocity] 9 mm/h Normal 0-15 [facility] rehensive Internal Medicine; [facility] Work Phone: Comment on above: Please note refere nce interval change PATIENT NOT FASTINGP ERFORMED BY: DEE [facility] Rfpzpz6572 [address] RoadDublin [place] [id number] TSH (04545)Ordered By: Sapheneiamargo m Journeyman Pipefitter on 09-23-2011 TSH Qn 1.360 {uIU/mL} Normal 0.450-4.500 [facility] Internal Medicine; [facility] Work Phone: Comment on above: PATIENT NOT FASTINGP ERFORMED BY: CB [facility] Lcqynm7203 [address] RoadDublin [place] [id number] VITAMIN B-12 (CYANOCOBALAMIN ) (05170)Ordered By: Plastic Press Operator on 09-23-2011 Cobalamin (Vitamin B12) [Mass/Vol] 762 pg/mL Normal 211-946 [facility]; [facility] Work Phone: Comment on above: PATIENT NOT FASTINGP ERFORMED BY: CB [facility] Dykgqi4595 [address] RoadDublin [place] [id number] CBC WITH MANUAL DIFF (92223) Ordered By: Plastic Press Operator on 09-01-2011 Basophils (Bld) [#/Vol] 0.0 10*3/uL Normal 0.0-0.2 [facility]; [facility] Work Phone: Comment on above: PATIENT WAS FASTINGP ERFORMED BY: CB [facility] Sdefls4445 [address] RoadDublin [place] [id number] Information: 198556,[id number] Basophils/100 WBC (Bld) 1 % Normal 0-3 [facility]; [facility] Work Phone: Comment on above: PATIENT WAS FASTINGP ERFORMED BY: CB [facility] Ysyfug6371 [address] RoadDublin [place] [id number] Information: [id number] Eosinophils (Bld) [#/Vol] 0.3 10*3/uL Normal 0.0-0.4 [facility]; [facility] Work Phone: Comment on above: PATIENT WAS FASTINGP ERFORMED BY: CB [facility] Topcpa5755 [address] RoadDublin [place] [id number] Information: [id number],K55274 Eosinophils/100 WBC (Bld) 4 % Normal 0-7 [facility]; [facility] Work Phone: Comment on above: PATIENT WAS FASTINGP ERFORMED BY: DEE Connor Gmimvo4525 [facility] [id number] Information: 991944,[id number] Erythrocyte distribution width (RBC) [Ratio] 13.3 % Normal 11.7-15.0 [facility]; [facility] Work Phone: Comment on above: PATIENT WAS FASTINGP ERFORMED BY: [address] [id number] Information: 556250,[id number] Hematocrit (Bld) [Volume fraction] 47.0 % Normal 36.0-50.0 [facility]; [facility] Work Phone: Comment on above: PATIENT WAS FASTINGP ERFORMED BY: [address] [id number] Information: 538389,S40363 Hemoglobin (Bld) [Mass/Vol] 15.9 g/dL Normal 12.5-17.0 [facility]; [facility] Work Phone: Comment on above: PATIENT WAS FASTINGP ERFORMED BY: [address] [id number] Information: [id number] Immature granulocytes (Bld) [#/Vol] 0.0 10*3/uL Normal 0.0-0.1 [facility]; [facility] Work Phone: Comment on above: PATIENT WAS FASTINGP ERFORMED BY: [address] [id number] Information: [id number] Immature granulocytes/100 WBC (Bld) 0 % Normal 0-2 [facility]; [facility] Work Phone: Comment on above: PATIENT WAS FASTINGP ERFORMED BY: [address] RoadDublin [place] [id number] Information: [id number] Lymphocytes (Bld) [#/Vol] 1.7 10*3/uL Normal 0.7-4.5 [facility]; [facility] Work Phone: Comment on above: PATIENT WAS FASTINGP ERFORMED BY: DEE [address] [id number] Information: [id number] Lymphocytes/100 WBC (Bld) 28 % Normal 14-46 [facility]; [facility] Work Phone: Comment on above: PATIENT WAS FASTINGP ERFORMED BY: DEE Connor Aoqrjx[address] [id number] Information: [id number] MCH (RBC) [Entitic mass] 30.8 pg Normal 27.0-34.0 [facility]; [facility] Work Phone: Comment on above: PATIENT WAS FASTINGP ERFORMED BY: DEE Connor Zloues9312 [facility] [id number] Information: 516242,[id number] MCHC (RBC) [Mass/Vol] 33.8 g/dL Normal 32.0-36.0 [facility] prehensive Internal Medicine; [facility] Work Phone: Comment on above: PATIENT WAS FASTINGP ERFORMED BY: DEE ConnorTammie V[place] 3370770 [facility] [id number] Information: [id number],[id number] MCV (RBC) [Entitic vol] 91 fL Normal 80-98 [facility]; [facility] Work Phone: Comment on above: PATIENT WAS FASTINGP ERFORMED BY: DEE [facility]6370 [facility] [id number] Information: [id number] Monocytes (Bld) [#/Vol] 0.8 10*3/uL Normal 0.1-1.0 [facility]; [facility] Work Phone: Comment on above: PATIENT WAS FASTINGP ERFORMED BY: DEE Rojo6370 [facility] [id number] Information: [id number],[id number] Monocytes/100 WBC (Bld) 13 % Normal 4-13 [facility]; [facility] Work Phone: Comment on above: PATIENT WAS FASTINGP ERFORMED BY: DEE Connor Nzlkyi9328 [facility] [id number] Information: [id number],[id number] Neutrophils (Bld) [#/Vol] 3.2 10*3/uL Normal 1.8-7.8 [facility]; [facility] Work Phone: Comment on above: PATIENT WAS FASTINGP ERFORMED BY: DEE Rojo6370 [facility] [id number] Information: 615809,[id number] Neutrophils/100 WBC (Bld) 54 % Normal 40-74 [facility]; [facility] Work Phone: Comment on above: PATIENT WAS FASTINGP ERFORMED BY: DEE Connor Mxyxtz9335 [facility] [id number] Information: [id number],[id number] Platelets (Bld) [#/Vol] 252 10*3/uL Normal 140-415 [facility]; [facility] Work Phone: Comment on above: PATIENT WAS FASTINGP ERFORMED BY: DEE Connor Hhzqgi9279 [facility] [id number] Information: [id number],[id number] RBC (Bld) [#/Vol] 5.17 10*6/uL Normal 4.10-5.60 Compr [facility]; [facility] Work Phone: Comment on above: PATIENT WAS FASTINGP ERFORMED BY: DEE Connor Cbsfio9292 [facility] [id number] Information: [id number],S20048 WBC (Bld) [#/Vol] 5.9 10*3/uL Normal 4.0-10.5 Compre hensive Internal Medicine; [facility] Work Phone: Comment on above: PATIENT WAS FASTINGP ERFORMED BY: DEE [facility] Mkoels26[address] RoadDublin [place] [id number] Information: [id number],[id number] FERRITIN (38411)Ordered By: Plastic Press Operator on 09-01-2011 Ferritin [Mass/Vol] 230 ng/mL Normal 30-400 [facility]; [facility] Work Phone: Comment on above: PATIENT WAS FASTINGP ERFORMED BY: DEE [facility] Aszmoa1623 [address] RoadDublin [place] [id number] IRON BINDING CAPACITY (TIBC) (11300)Ordered By: Plastic Press Operator on 09-01-2011 Iron [Mass/Vol] 83 ug/dL Normal 40-155 [facility]; [facility] Work Phone: Comment on above: PATIENT WAS FASTINGP ERFORMED BY: DEE [facility] Aaveyq9200 [address] RoadDublin [place] [id number] Iron binding capacity [Mass/Vol] 281 ug/dL Normal 250-450 [facility]; [facility] Work Phone: Comment on above: PATIENT WAS FASTINGP ERFORMED BY: DEE [facility] Scpdwa9460 [address] RoadDublin [place] [id number] Iron binding capacity.unsaturated [Mass/Vol] 198 ug/dL Normal 150-375 [facility]; [facility] Work Phone: Comment on above: PATIENT WAS FASTINGP ERFORMED BY: DEE [facility] Sxtcld4027 [address] RoadDublin [place] [id number] Iron saturation [Mass fraction] 30 % Normal 15-55 [facility]; [facility] Work Phone: Comment on above: PATIENT WAS FASTINGP ERFORMED BY: DEE [facility] Avrlsh7137 [address] RoadDublin [place] [id number] LIPID PANEL (07577)Ordered B y: Plastic Press Operator on 09-01-2011 Cholesterol [Mass/Vol] 220 mg/dL Abnormal 100-199 [facility]; [facility] Work Phone: Comment on above: PATIENT WAS FASTINGP ERFORMED BY: CB [facility] Rttazu2667 [address] RoadDublin [place] [id number] Cholesterol in HDL [Mass/Vol] 47 mg/dL Normal [facility]; [facility] Work Phone: Comment on above: According to ATP-III Guidelines, HDL-C >59 mg/dL is considered anegative risk factor for CHD. PATIENT WAS FASTINGP ERFORMED BY: CB [facility] Mxnqsf7683 [address] RoadDublin [place] [id number] Cholesterol in LDL [Mass/Vol] 154 mg/dL Abnormal 0-99 [facility]; [facility] Work Phone: Comment on above: PATIENT WAS FASTINGP ERFORMED BY: CB [facility] Atmloz9920 [address] RoadDublin [place] [id number] Cholesterol in LDL/Cholesterol in HDL [Mass ratio] 3.3 {ratio_units} Normal 0.0-3.6 [facility]; [facility] Work Phone: Comment on above: PATIENT WAS FASTINGP ERFORMED BY: CB [facility] Yazqdh4346 [address] RoadDublin [place] [id number] Cholesterol in VLDL [Mass/Vol] 19 mg/dL Normal 5-40 [facility]; [facility] Work Phone: Comment on above: PATIENT WAS FASTINGP ERFORMED BY: CB [facility] Qlmlwq7724 [address] RoadDublin [place] [id number] Triglyceride [Mass/Vol] 95 mg/dL Normal 0-149 [facility]; [facility] Work Phone: Comment on above: PATIENT WAS FASTINGP ERFORMED BY: CB [facility] Cutipd3570 [address] RoadDublin [place] [id number] METABOLIC PANEL, COMPREHENSI VE (24415)Ordered By: Plastic Press Operator on 09-01-2011 Albumin [Mass/Vol] 4.3 g/dL Normal 3.5-5.5 [facility]; [facility] Work Phone: Comment on above: PATIENT WAS FASTINGP ERFORMED BY: CB [facility] Kjcbgf7500 [address] RoadDublin [place] [id number] Albumin/Globulin [Mass ratio] 1.3 {ratio} Normal 1.1-2.5 [facility]; [facility] Work Phone: Comment on above: PATIENT WAS FASTINGP ERFORMED BY: [employer] Xfqthx8943 [address] RoadDublin [place] [id number] ALP [Catalytic activity/Vol] 69 U/L Normal 25-150 [facility]; [facility] Work Phone: Comment on above: PATIENT WAS FASTINGP ERFORMED BY: [facility] Ykcqaa1611 [address] RoadDublin [place] [id number] ALT [Catalytic activity/Vol] 27 U/L Normal 0-55 [facility]; [facility] Work Phone: Comment on above: PATIENT WAS FASTINGP ERFORMED BY: [facility] Pqvtkr6065 [address] RoadDublin [place] [id number] AST [Catalytic activity/Vol] 18 U/L Normal 0-40 [facility]; [facility] Work Phone: Comment on above: PATIENT WAS FASTINGP ERFORMED BY: [facility] Myypgn7832 [address] RoadDublin [place] [id number] Bilirubin [Mass/Vol] 0.5 mg/dL Normal 0.0-1.2 [facility]; [facility] Work Phone: Comment on above: PATIENT WAS FASTINGP ERFORMED BY: Lab[facility] Rpytqm8434 [address] RoadDublin [place] [id number] Calcium [Mass/Vol] 9.4 mg/dL Normal 8.7-10.2 [facility]; [facility] Work Phone: Comment on above: PATIENT WAS FASTINGP ERFORMED BY: LabCo Xjobee5414 [address] RoadDublin [place] [id number] Chloride [Moles/Vol] 98 mmol/L Normal 97-108 [facility] rehensive Internal Medicine; [facility] Work Phone: Comment on above: PATIENT WAS FASTINGP ERFORMED BY: LabCo Rntgte4935 [address] RoadDublin [place] [id number] CO2 [Moles/Vol] 24 mmol/L Normal 20-32 [facility]pre[facility]; [facility] Work Phone: Comment on above: PATIENT WAS FASTINGP ERFORMED BY: [facility] Nvdgzn2157 [facility] [id number] Creatinine [Mass/Vol] 1.00 mg/dL Normal 0.76-1.27 [facility] prehensive Internal Medicine; [facility] Work Phone: Comment on above: PATIENT WAS FASTINGP ERFORMED BY: Lab[facility] Lxyewx3342 [facility] [id number] GFR/1.73 sq M.predicted among blacks MDRD (S/P/Bld) [Vol rate/Area] 102 mL/min/{1.73_m2} Normal Comprehensi Internal Medicine; [facility] Work Phone: Comment on above: Note: A persistent e GFR <60 mL/min/1.73 m2 (3 months or more) mayindicate chronic kidney disease. An eGFR >59 mL/min/1.73 m2 with anelevated urine protein also may indicate chronic kidney disease.Calculated using CKD-EPI formula. PATIENT WAS FASTINGP ERFORMED BY: [facility] Yademe7392 [facility] [id number] GFR/1.73 sq M.predicted among non-blacks CKD-EPI (S/P/Bld) [Vol rate/Area] 88 mL/min/1.73 Normal [facility]; [facility] Work Phone: Comment on above: PATIENT WAS FASTINGP ERFORMED BY: LabCo Ctzhgi5393 [facility] [id number] Globulin (S) [Mass/Vol] 3.2 g/dL Normal 1.5-4.5 [facility]; [facility] Work Phone: Comment on above: PATIENT WAS FASTINGP ERFORMED BY: [facility] Janmnj7453 [facility] [id number] Glucose [Mass/Vol] 93 mg/dL Normal 65-99 [facility]; [facility] Work Phone: Comment on above: PATIENT WAS FASTINGP ERFORMED BY: CB [facility] Acnnca1025 [address] RoadDublin [place] [id number] Potassium [Moles/Vol] 4.3 mmol/L Normal 3.5-5.2 [facility] Internal Medicine; [facility] Work Phone: Comment on above: PATIENT WAS FASTINGP ERFORMED BY: CB [facility] Urxbly7954 [address] RoadUnc Health Caldwellin [place] [id number] Protein [Mass/Vol] 7.5 g/dL Normal 6.0-8.5 [facility]; [facility] Work Phone: Comment on above: PATIENT WAS FASTINGP ERFORMED BY: CB [facility] Jlwymb8964 [address] RoadDuin [place] [id number] Sodium [Moles/Vol] 136 mmol/L Normal 134-144 [facility]; [facility] Work Phone: Comment on above: Please note refere nce interval change PATIENT WAS FASTINGP ERFORMED BY: CB [facility] Eacpgl0087 Mck[address] RoadUnc Health Caldwellin [place] [id number] Urea nitrogen [Mass/Vol] 17 mg/dL Normal 6-24 [facility] Internal Medicine; [facility] Work Phone: Comment on above: PATIENT WAS FASTINGP ERFORMED BY: CB [facility] Cdunhu8406 Mck[address] RoadUnc Health Caldwellin [place] [id number] Urea nitrogen/Creatinine [Mass ratio] 17 mg/mg Normal 9-20 [facility] Internal Medicine; [facility] Work Phone: Comment on above: PATIENT WAS FASTINGP ERFORMED BY: CB [facility] Ratfxu[address] [facility] Centerblin [place] [id number] PSA (PROSTATE SPECIFIC ANTIG EN) (V76.44)Ordered By: Plastic Press Operator on 09-01-2011 Prostate specific Ag [Mass/Vol] 0.6 ng/mL Normal 0.0-4.0 [facility] Internal [facility]; [facility] Work Phone: Comment on above: Geovanna ECLIA methodol ogy. .According to the [place] [employer], Serum PSA shoulddecrease and remain at undetectable levels after radicalprostatectomy. The AUA defines biochemical recurrence as an initialPSA value 0.2 ng/mL or greater followed by a subsequent confirmatoryPSA value 0.2 ng/mL or greater.Values obtained with different assay methods or kits cannot be usedinterchangeably. Results cannot be interpreted as absolute evidenceof the presence or absence of malignant disease. PATIENT WAS FASTINGP ERFORMED BY: DEE [facility] Osiggr6634 [address] RoadDublin [place] [id number] URINALYSIS, W/ MICRO ([id number]) Ordered By: Plastic Press Operator on 09-01-2011 Appearance (U) Clear Normal Comprehens sailaja Internal Medicine; [facility] Work Phone: Comment on above: PATIENT WAS FASTINGP ERFORMED BY: DEE [facility] Vuyjuu1925 [address] RoadDublin [place] [id number] Bilirubin Ql (U) Negative Normal Comprehe nsive Internal Medicine; [facility] Work Phone: Comment on above: PATIENT WAS FASTINGP ERFORMED BY: DEE [facility] Aurvtm9313 [address] RoadDublin [place] [id number] Color (U) Yellow Normal [facility]; [facility] Work Phone: Comment on above: PATIENT WAS FASTINGP ERFORMED BY: DEE [facility] Paifpu6374 [address] RoadDublin [place] [id number] Glucose Ql (U) Negative Normal Comprehens sailaja Internal Medicine; [facility] Work Phone: Comment on above: PATIENT WAS FASTINGP ERFORMED BY: [facility] Gvtdfv7116 [address] RoadDublin [place] [id number] Hemoglobin Ql (U) Negative Normal Compreh ensive Internal Medicine; [facility] Work Phone: Comment on above: PATIENT WAS FASTINGP ERFORMED BY: DEE [facility] Hsiyio8515 [address] RoadDublin [place] [id number] Ketones Ql (U) Negative Normal Comprehens sailaja Internal Medicine; [facility] Work Phone: Comment on above: PATIENT WAS FASTINGP ERFORMED BY: DEE [facility] Qvmpmt8017 [address] RoadDublin [place] [id number] Leukocyte esterase Test strip Ql (U) Negative Normal [facility]; [facility] Work Phone: Comment on above: PATIENT WAS FASTINGP ERFORMED BY: DEE LabDat BellaCwpyyw9066 [address] RoadDublin [place] [id number] Microscopic observation LM Nom (Urine sed) MICRON Normal [facility]; [facility] Work Phone: Comment on above: Microscopic follows if indicated. PATIENT WAS FASTINGP ERFORMED BY: DEE [facility] Jyzecs6152 [address] RoadDublin [place] [id number] Microscopic observation LM Nom (Urine sed) See below: Normal [facility]; [facility] Work Phone: Comment on above: PATIENT WAS FASTINGP ERFORMED BY: DEE LabCoshen BellaNfctam2892 [address] RoadDublin [place] [id number] Nitrite Ql (U) Negative Normal Comprehens sailaja Internal Medicine; [facility] Work Phone: Comment on above: PATIENT WAS FASTINGP ERFORMED BY: DEE [facility] Rmpsxx1665 [address] RoadDublin [place] [id number] pH (U) 6.5 [pH] Normal 5.0-7.5 [facility]; [facility] Work Phone: Comment on above: PATIENT WAS FASTINGP ERFORMED BY: DEE [facility] Kyyuxn5255 [address] RoadDublin [place] [id number] Protein Ql (U) Negative Normal Comprehens sailaja Internal Medicine; [facility] Work Phone: Comment on above: PATIENT WAS FASTINGP ERFORMED BY: DEE [facility] Vdptar3001 [address] RoadDublin [place] [id number] Specific gravity (U) [Rel density] 1.015 1 Normal 1.005-1.030 [facility]; [facility] Work Phone: Comment on above: PATIENT WAS FASTINGP ERFORMED BY: DEE [facility] Ozsxqt0554 [address] RoadDublin [place] [id number] Urobilinogen (U) [Mass/Vol] 0.2 mg/dL Normal 0.0-1.9 [facility]; [facility] Work Phone: Comment on above: PATIENT WAS FASTINGP ERFORMED BY: DEE Rojo[address] [facility] [id number] CBC with manual diff (39015) Ordered By: Plastic Press Operator on 04-24-2010 Basophils (Bld) [#/Vol] 0.0 10*3/uL Normal 0.0-0.2 [facility]; [facility] Work Phone: Comment on above: PATIENT NOT FASTINGP ERFORMED BY: DEE Connor Rflojy9521 [facility] [id number] Information: [id number] Basophils/100 WBC (Bld) 0 % Normal 0-3 [facility]; [facility] Work Phone: Comment on above: PATIENT NOT FASTINGP ERFORMED BY: DEE Bellalin6370 [facility] [id number] Information: 684249,[id number] Eosinophils (Bld) [#/Vol] 0.2 10*3/uL Normal 0.0-0.4 [facility]; [facility] Work Phone: Comment on above: PATIENT NOT FASTINGP ERFORMED BY: DEE Rojo6370 [facility] [id number] Information: 354966,[id number] Eosinophils/100 WBC (Bld) 3 % Normal 0-7 [facility]; [facility] Work Phone: Comment on above: PATIENT NOT FASTINGP ERFORMED BY: DEE Connor Scvvtw9202 [facility] [id number] Information: [id number],[id number] Erythrocyte distribution width (RBC) [Ratio] 13.4 % Normal 11.7-15.0 [facility]; [facility] Work Phone: Comment on above: PATIENT NOT FASTINGP ERFORMED BY: EDE Connor Twcjei8290 [facility] [id number] Information: [id number] Hematocrit (Bld) [Volume fraction] 45.1 % Normal 36.0-50.0 [facility]; [facility] Work Phone: Comment on above: PATIENT NOT FASTINGP ERFORMED BY: DEE Connor Cqwmbl5278 [facility] [id number] Information: 447115,[id number] Hemoglobin (Bld) [Mass/Vol] 15.5 g/dL Normal 12.5-17.0 [facility]; [facility] Work Phone: Comment on above: PATIENT NOT FASTINGP ERFORMED BY: DEE SotoCoTammie Ville 3370770 [facility] [id number] Information: [id number] Immature granulocytes (Bld) [#/Vol] 0.0 10*3/uL Normal 0.0-0.1 [facility]; [facility] Work Phone: Comment on above: PATIENT NOT FASTINGP ERFORMED BY: DEE SotoCoTammie Ville 3370770 [facility] [id number] Information: 470376,[id number] Immature granulocytes/100 WBC (Bld) 0 % Normal 0-1 [facility]; [facility] Work Phone: Comment on above: PATIENT NOT FASTINGP ERFORMED BY: DEE S[address] [id number] Information: 766511,[id number] Lymphocytes (Bld) [#/Vol] 1.7 10*3/uL Normal 0.7-4.5 [facility]; [facility] Work Phone: Comment on above: PATIENT NOT FASTINGP ERFORMED BY: DEE LabCoTammie Ville 3370770 [facility] [id number] Information: 230250,[id number] Lymphocytes/100 WBC (Bld) 25 % Normal 14-46 [facility]; [facility] Work Phone: Comment on above: PATIENT NOT FASTINGP ERFORMED BY: DEE Bellalin6370 [facility] [id number] Information: [id number],[id number] MCH (RBC) [Entitic mass] 30.2 pg Normal 27.0-34.0 [facility]; [facility] Work Phone: Comment on above: PATIENT NOT FASTINGP ERFORMED BY: DEE Connor[address] [id number] Information: 965345,[id number] MCHC (RBC) [Mass/Vol] 34.4 g/dL Normal 32.0-36.0 [facility] prehensive Internal Medicine; [facility] Work Phone: Comment on above: PATIENT NOT FASTINGP ERFORMED BY: DEE Bellalin6370 [facility] [id number] Information: 660248,[id number] MCV (RBC) [Entitic vol] 88 fL Normal 80-98 [facility]; [facility] Work Phone: Comment on above: PATIENT NOT FASTINGP ERFORMED BY: DEE Bellalin6370 [facility] [id number] Information: [id number],[id number] Monocytes (Bld) [#/Vol] 0.9 10*3/uL Normal 0.1-1.0 [facility]; [facility] Work Phone: Comment on above: PATIENT NOT FASTINGP ERFORMED BY: DEE ConnorTammie Ville 3370770 [facility] [id number] Information: 306591,C10088 Monocytes/100 WBC (Bld) 13 % Normal 4-13 [facility]; [facility] Work Phone: Comment on above: PATIENT NOT FASTINGP ERFORMED BY: DEE Connor Lddtck3962 [facility] [id number] Information: [id number] Neutrophils (Bld) [#/Vol] 3.9 10*3/uL Normal 1.8-7.8 [facility]; [facility] Work Phone: Comment on above: PATIENT NOT FASTINGP ERFORMED BY: DEE Rojo6370 [facility]oy[facility] [id number] Information: [id number] Neutrophils/100 WBC (Bld) 59 % Normal 40-74 [facility]; [facility] Work Phone: Comment on above: PATIENT NOT FASTINGP ERFORMED BY: DEE Rojo6370 [facility]oyCap[facility] [id number] Information: [id number] Platelets (Bld) [#/Vol] 205 10*3/uL Normal 140-415 [facility]; [facility] Work Phone: Comment on above: PATIENT NOT FASTINGP ERFORMED BY: DEE Rojo6370 [facility] [id number] Information: [id number] RBC (Bld) [#/Vol] 5.13 10*6/uL Normal 4.10-5.60 Compr [facility] Internal Medicine; [facility] Work Phone: Comment on above: PATIENT NOT FASTINGP ERFORMED BY: DEE Rojo6370 [facility] [id number] Information: [id number] WBC (Bld) [#/Vol] 6.6 10*3/uL Normal 4.0-10.5 [facility]villeive [facility]; [facility] Work Phone: Comment on above: PATIENT NOT FASTINGP ERFORMED BY: DEE Connor Ohpetu5542 [facility] [id number] Information: [id number] Metabolic Panel, Comprehensi ve (44213)Ordered By: Plastic Press Operator on 04-24-2010 Albumin [Mass/Vol] 4.2 g/dL Normal 3.5-5.5 [facility] hensive [facility] Medicine; [facility] Work Phone: Comment on above: PATIENT NOT FASTINGP ERFORMED BY: DEE LabGeena Gvenom4597 [facility] [id number] Albumin/Globulin [Mass ratio] 1.5 {ratio} Normal 1.1-2.5 [facility]; [facility] Work Phone: Comment on above: PATIENT NOT FASTINGP ERFORMED BY: CB [facility] Kkceiv5741 [address] RoadDublin [place] [id number] ALP [Catalytic activity/Vol] 62 U/L Normal 25-150 [facility]; [facility] Work Phone: Comment on above: PATIENT NOT FASTINGP ERFORMED BY: CB [facility] Hvowfq9218 [address] RoadDublin [place] [id number] ALT [Catalytic activity/Vol] 47 U/L Normal 0-55 [facility]; [facility] Work Phone: Comment on above: PATIENT NOT FASTINGP ERFORMED BY: CB [facility] Qyxaob6597 [address] RoadDublin [place] [id number] AST [Catalytic activity/Vol] 27 U/L Normal 0-40 [facility]; [facility] Internal Medicine Work Phone: Comment on above: PATIENT NOT FASTINGP ERFORMED BY: CB [facility] Gaehze7978 [address] RoadDublin [place] [id number] Bilirubin [Mass/Vol] 0.5 mg/dL Normal 0.0-1.2 [facility] rehensive Internal Medicine; [facility] Work Phone: Comment on above: PATIENT NOT FASTINGP ERFORMED BY: CB [facility] Ptxtzt4755 [address] RoadDublin [place] [id number] Calcium [Mass/Vol] 8.7 mg/dL Normal 8.7-10.2 [facility] Internal Medicine; [facility] Work Phone: Comment on above: PATIENT NOT FASTINGP ERFORMED BY: CB [facility] Kznvve5307 [address] RoadDublin [place] [id number] Chloride [Moles/Vol] 101 mmol/L Normal 97-108 Comp rehensive Internal Medicine; [facility] Work Phone: Comment on above: PATIENT NOT FASTINGP ERFORMED BY: CB [facility] Fwaomj1521 [address] RoadDublin [place] [id number] CO2 [Moles/Vol] 25 mmol/L Normal 20-32 [facility] Internal Medicine; [facility] Work Phone: Comment on above: PATIENT NOT FASTINGP ERFORMED BY: DEE [facility] Nuqsij5[address] [facility] [id number] Creatinine [Mass/Vol] 1.07 mg/dL Normal 0.76-1.27 [facility] prehensive Internal Medicine; [facility] Work Phone: Comment on above: PATIENT NOT FASTINGP ERFORMED BY: CB [facility] Byomkc9219 [facility] [id number] GFR/1.73 sq M.predicted among blacks MDRD (S/P/Bld) [Vol rate/Area] mL/min/{1.73_m2} Normal [facility]; [facility] Work Phone: Comment on above: Note: Persistent red uction for 3 months or more in an eGFR<60 mL/min/1.73 m2 defines CKD. Patients with eGFR values>/=60 mL/min/1.73 m2 may also have CKD if evidence of persistentproteinuria is present. Additional information may be found [email or web address]. PATIENT NOT FASTINGP ERFORMED BY: CB [facility] Ykkmkh5338 [facility] [id number] GFR/1.73 sq M.predicted MDRD (S/P/Bld) [Vol rate/Area] mL/min/{1.73_m2} Normal [facility]; [facility] Work Phone: Comment on above: PATIENT NOT FASTINGP ERFORMED BY: CB [facility] Ncjwbo6424 [facility] [id number] Globulin (S) [Mass/Vol] 2.8 g/dL Normal 1.5-4.5 [facility]; [facility] Work Phone: Comment on above: PATIENT NOT FASTINGP ERFORMED BY: CB [facility] Vthnjn3488 [facility] [id number] Glucose [Mass/Vol] 84 mg/dL Normal 65-99 [facility] Internal Medicine; [facility] Work Phone: Comment on above: PATIENT NOT FASTINGP ERFORMED BY: CB [facility] Jfwpmw1327 [address] RoadDublin [place] [id number] Potassium [Moles/Vol] 4.0 mmol/L Normal 3.5-5.2 [facility] prehensive Internal Medicine; [facility] Work Phone: Comment on above: PATIENT NOT FASTINGP ERFORMED BY: CB [facility] Njtcvl9069 [address] RoadDublin [place] [id number] Protein [Mass/Vol] 7.0 g/dL Normal 6.0-8.5 [facility] Internal Medicine; [facility] Work Phone: Comment on above: PATIENT NOT FASTINGP ERFORMED BY: CB [facility] Bqcgre5783 [address] RoadDublin [place] [id number] Sodium [Moles/Vol] 139 mmol/L Normal 135-145 [facility] Internal Medicine; [facility] Work Phone: Comment on above: PATIENT NOT FASTINGP ERFORMED BY: CB [facility] Xnypuq6181 [address] RoadDublin [place] [id number] Urea nitrogen [Mass/Vol] 20 mg/dL Normal 5-26 [facility]; [facility] Work Phone: Comment on above: PATIENT NOT FASTINGP ERFORMED BY: CB [facility] Aqddqc0566 [address] RoadDublin [place] [id number] Urea nitrogen/Creatinine [Mass ratio] 19 mg/mg Normal 8-27 [facility]; [facility] Work Phone: Comment on above: PATIENT NOT FASTINGP ERFORMED BY: CB [facility] Orkrqw0728 [address] RoadDublin [place] [id number] TSH ([id number])Ordered By: Daniel Schreiber on 04-24-2010 TSH Qn 1.340 {uIU/mL} Normal 0.450-4.500 [facility] Internal Medicine; [facility] Work Phone: Comment on above: Please note refere nce interval change PATIENT NOT FASTINGP ERFORMED BY: CB [facility] Vfqvpg3323 [address] RoadDublin [place] [id number] URINALYSIS ([id number])Ordered By : Plastic Press Operator on 04-24-2010 Appearance (U) Clear Normal Comprehens [facility] Internal Medicine; [facility] Work Phone: Comment on above: PATIENT NOT FASTINGP ERFORMED BY: DEE [facility] Kjwvwn5792 [address] RoadDublin [place] [id number] Bilirubin Ql (U) Negative Normal Comprehe nsive Internal Medicine; [facility] Work Phone: Comment on above: PATIENT NOT FASTINGP ERFORMED BY: DEE [facility] Nrnjkj[address] [facility]in [place] [id number] Color (U) Yellow Normal [facility]; [facility] Work Phone: Comment on above: PATIENT NOT FASTINGP ERFORMED BY: DEE [facility] Mxscvr5895 [address] [facility] [id number] Glucose Ql (U) Negative Normal Comprehens [facility] Internal Medicine; [facility] Work Phone: Comment on above: PATIENT NOT FASTINGP ERFORMED BY: DEE [facility] Cgrazp7665 [address] [facility] [place] [id number] Hemoglobin Ql (U) Negative Normal Compreh ensive Internal Medicine; [facility] Work Phone: Comment on above: PATIENT NOT FASTINGP ERFORMED BY: DEE [facility] Yhnwwu2005 [address] [facility] [id number] Ketones Ql (U) Negative Normal Comprehens [facility] Internal Medicine; [facility] Work Phone: Comment on above: PATIENT NOT FASTINGP ERFORMED BY: DEE [facility] Dduwqq7653 [address] [facility]in [place] [id number] Leukocyte esterase Test strip Ql (U) Negative Normal [facility]; [facility] Work Phone: Comment on above: PATIENT NOT FASTINGP ERFORMED BY: DEE [facility] Odgbco4561 [address] [facility] HospitalDuin [place] [id number] Microscopic observation LM Nom (Urine sed) MICRON Normal [facility]; [facility] Work Phone: Comment on above: Microscopic follows if indicated. PATIENT NOT FASTINGP ERFORMED BY: DEE [facility] Rojo6370 [address] [facility] [id number] Nitrite Ql (U) Negative Normal Comprehens [facility] Internal Medicine; [facility] Work Phone: Comment on above: PATIENT NOT FASTINGP ERFORMED BY: DEE Maribel Rojo6370 [address] [facility] [id number] pH (U) 6.0 [pH] Normal 5.0-7.5 [facility]; [facility] Work Phone: Comment on above: PATIENT NOT FASTINGP ERFORMED BY: DEE LabGeena Tcinpk2899 [address] [facility] [id number] Protein Ql (U) Negative Normal Comprehens [facility] Internal Medicine; [facility] Work Phone: Comment on above: PATIENT NOT FASTINGP ERFORMED BY: DEE Nikolas Yrivjs7461 [facility] [id number] Specific gravity (U) [Rel density] 1.028 1 Normal 1.005-1.030 [facility]; [facility] Work Phone: Comment on above: PATIENT NOT FASTINGP ERFORMED BY: DEE Nikolas Wjdkki8854 [facility] [id number] Urobilinogen (U) [Mass/Vol] 0.2 mg/dL Normal 0.0-1.9 [facility]; [facility] Work Phone: Comment on above: PATIENT NOT FASTINGP ERFORMED BY: DEE Nikolas Ddkeet1765 [facility] [id number] CBC WITH MANUAL DIFF ([id number]) Ordered By: Plastic Press Operator on 12-19-2009 Basophils (Bld) [#/Vol] 0.0 10*3/uL Normal 0.0-0.2 [facility]; [facility] Work Phone: Comment on above: PATIENT WAS FASTINGP ERFORMED BY: DEE [facility] Mlnfns8737 [facility] [id number] Information: [id number] Basophils/100 WBC (Bld) 0 % Normal 0-3 [facility]; [facility] Work Phone: Comment on above: PATIENT WAS FASTINGP ERFORMED BY: DEE Connor Zpnjao9473 [facility] [id number] Information: [id number] Eosinophils (Bld) [#/Vol] 0.2 10*3/uL Normal 0.0-0.4 [facility]; [facility] Work Phone: Comment on above: PATIENT WAS FASTINGP ERFORMED BY: [place] 2494570 [facility] [id number] Information: [id number] Eosinophils/100 WBC (Bld) 3 % Normal 0-7 [facility]; [facility] Work Phone: Comment on above: PATIENT WAS FASTINGP ERFORMED BY: [address] [id number] Information: [id number] Erythrocyte distribution width (RBC) [Ratio] 13.6 % Normal 11.7-15.0 [facility]; [facility] Work Phone: Comment on above: PATIENT WAS FASTINGP ERFORMED BY: CharlesMariah [place] 7654470 [facility] [id number] Information: [id number] Hematocrit (Bld) [Volume fraction] 47.6 % Normal 36.0-50.0 [facility]; [facility] Work Phone: Comment on above: PATIENT WAS FASTINGP ERFORMED BY: [place] 2494570 [facility] [id number] Information: [id number] Hemoglobin (Bld) [Mass/Vol] 16.0 g/dL Normal 12.5-17.0 [facility]; [facility] Work Phone: Comment on above: PATIENT WAS FASTINGP ERFORMED BY: [place] 2494570 [facility] [id number] Information: [id number] Lymphocytes (Bld) [#/Vol] 1.3 10*3/uL Normal 0.7-4.5 [facility]; [facility] Work Phone: Comment on above: PATIENT WAS FASTINGP ERFORMED BY: DEE Rojo6370 [facility] [id number] Information: [id number] Lymphocytes/100 WBC (Bld) 25 % Normal 14-46 [facility]; [facility] Work Phone: Comment on above: PATIENT WAS FASTINGP ERFORMED BY: DEE [place] 6452870 [facility] [id number] Information: [id number] MCH (RBC) [Entitic mass] 30.3 pg Normal 27.0-34.0 [facility] Internal Medicine; [facility] Work Phone: Comment on above: PATIENT WAS FASTINGP ERFORMED BY: CharlesMariah [place] 7654470 [facility] [id number] Information: [id number] MCHC (RBC) [Mass/Vol] 33.6 g/dL Normal 32.0-36.0 [facility] Internal Medicine; [facility] Work Phone: Comment on above: PATIENT WAS FASTINGP ERFORMED BY: DEE [facility]Saint [facility] Nxaajx4958 [facility] [id number] Information: [id number] MCV (RBC) [Entitic vol] 90 fL Normal 80-98 [facility] Internal Medicine; [facility] Work Phone: Comment on above: PATIENT WAS FASTINGP ERFORMED BY: [facility]6370 [facility] [id number] Information: [id number] Monocytes (Bld) [#/Vol] 0.6 10*3/uL Normal 0.1-1.0 [facility] Internal Medicine; [facility] Work Phone: Comment on above: PATIENT WAS FASTINGP ERFORMED BY: [place] 2494570 [facility] [id number] Information: [id number] Monocytes/100 WBC (Bld) 12 % Normal 4-13 [facility]; [facility] Work Phone: Comment on above: PATIENT WAS FASTINGP ERFORMED BY: DEE Woodard [facility] [id number] Information: [id number] Neutrophils (Bld) [#/Vol] 3.2 10*3/uL Normal 1.8-7.8 [facility]; [facility] Work Phone: Comment on above: PATIENT WAS FASTINGP ERFORMED BY: DEE CharlesSaint [facility] Wtgimm4054 [facility] [id number] Information: [id number] Neutrophils/100 WBC (Bld) 60 % Normal 40-74 [facility]; [facility] Work Phone: Comment on above: PATIENT WAS FASTINGP ERFORMED BY: DEE Nikolas Xcigkw4724 [facility] [id number] Information: [id number] Platelets (Bld) [#/Vol] 180 10*3/uL Normal 140-415 [facility]; [facility] Work Phone: Comment on above: PATIENT WAS FASTINGP ERFORMED BY: DEE Nikolas Xntmbf3314 [facility] [id number] Information: [id number] RBC (Bld) [#/Vol] 5.28 10*6/uL Normal 4.10-5.60 [facility]pr [facility]; [facility] Work Phone: Comment on above: PATIENT WAS FASTINGP ERFORMED BY: Nikolas Arhwtc4450 [facility] [id number] Information: [id number] WBC (Bld) [#/Vol] 5.3 10*3/uL Normal 4.0-10.5 Compre [facility]mount[facility] Internal Medicine; [facility] Work Phone: Comment on above: PATIENT WAS FASTINGP ERFORMED BY: DEE CharlesGeena Vfrfdm2087 [address] [facility] [place] [id number] Information: [id number] IRON (13810)Ordered By: Syst em Journeyman Pipefitter on 12-19-2009 Iron [Mass/Vol] 79 ug/dL Normal 40-155 [facility] Internal Medicine; [facility] Work Phone: Comment on above: PATIENT WAS FASTINGP ERFORMED BY: DEE LabGeena Rujsfd5574 [address] [facility] [id number] LIPID PANEL (55326)Ordered B y: Plastic Press Operator on 12-19-2009 Cholesterol [Mass/Vol] 198 mg/dL Normal 100-199 [facility]; [facility] Work Phone: Comment on above: PATIENT WAS FASTINGP ERFORMED BY: DEE Bellalin6370 [facility] [id number] Cholesterol in HDL [Mass/Vol] 42 mg/dL Normal [facility]; [facility] Work Phone: Comment on above: According to ATP-III Guidelines, HDL-C >59 mg/dL is considered anegative risk factor for CHD. PATIENT WAS FASTINGP ERFORMED BY: DEE LabGeena Zjiekh8171 [facility] [id number] Cholesterol in LDL [Mass/Vol] 122 mg/dL Abnormal 0-99 [facility]; [facility] Work Phone: Comment on above: PATIENT WAS FASTINGP ERFORMED BY: DEE LabSaint [facility] Kitjkx2568 [facility] [id number] Cholesterol in LDL/Cholesterol in HDL [Mass ratio] 2.9 {ratio_units} Normal 0.0-3.6 [facility]; [facility] Work Phone: Comment on above: PATIENT WAS FASTINGP ERFORMED BY: DEE LabGeena Liyflj2696 [facility] [id number] Cholesterol in VLDL [Mass/Vol] 34 mg/dL Normal 5-40 [facility]; [facility] Work Phone: Comment on above: PATIENT WAS FASTINGP ERFORMED BY: DEE [facility] Bubehe7220 [address] RoadDublin [place] [id number] Triglyceride [Mass/Vol] 168 mg/dL Abnormal 0-149 [facility]; [facility] Work Phone: Comment on above: PATIENT WAS FASTINGP ERFORMED BY: [facility] Yywuqv[address] [facility]bl[facility] [place] [id number] METABOLIC PANEL, COMPREHENSI VE (70442)Ordered By: Plastic Press Operator on 12-19-2009 Albumin [Mass/Vol] 4.1 g/dL Normal 3.5-5.5 [facility] Internal Medicine; [facility] Work Phone: Comment on above: PATIENT WAS FASTINGP ERFORMED BY: [facility] Vyplpx8209 M[address] RoadUnc Health Caldwellin [place] [id number] Albumin/Globulin [Mass ratio] 1.4 {ratio} Normal 1.1-2.5 [facility]; [facility] Work Phone: Comment on above: PATIENT WAS FASTINGP ERFORMED BY: LabSaint [facility] Rwhrre4224 [address] [facility] [place] [id number] ALP [Catalytic activity/Vol] 65 U/L Normal 25-150 [facility]; [facility] Work Phone: Comment on above: PATIENT WAS FASTINGP ERFORMED BY: LabSaint [facility] Etrzwd[address] [facility]bl[facility] [place] [id number] ALT [Catalytic activity/Vol] 33 U/L Normal 0-55 [facility]; [facility] Work Phone: Comment on above: PATIENT WAS FASTINGP ERFORMED BY: [facility] Mpnsrn2490 [address] Roadblin [place] [id number] AST [Catalytic activity/Vol] 22 U/L Normal 0-40 [facility]; [facility] Work Phone: Comment on above: PATIENT WAS FASTINGP ERFORMED BY: [facility] Irmczq8218 [address] [facility] HospitalD[facility] [place] [id number] Bilirubin [Mass/Vol] 0.5 mg/dL Normal 0.1-1.2 [facility] Internal Medicine; [facility] Work Phone: Comment on above: PATIENT WAS FASTINGP ERFORMED BY: CB [facility] Dodhwr7627 [address] RoadDublin [place] [id number] Calcium [Mass/Vol] 9.0 mg/dL Normal 8.7-10.2 [facility]; [facility] Work Phone: Comment on above: PATIENT WAS FASTINGP ERFORMED BY: CB [facility] Wkymyp7198 [address] RoadDublin [place] [id number] Chloride [Moles/Vol] 103 mmol/L Normal 97-108 Comp rehensive Internal Medicine; [facility] Work Phone: Comment on above: PATIENT WAS FASTINGP ERFORMED BY: CB [facility] Zgmvfy4682 [address] RoadDublin [place] [id number] CO2 [Moles/Vol] 24 mmol/L Normal 20-32 [facility]; [facility] Work Phone: Comment on above: PATIENT WAS FASTINGP ERFORMED BY: CB [facility] Mactcc2551 [address] RoadDublin [place] [id number] Creatinine [Mass/Vol] 1.07 mg/dL Normal 0.76-1.27 [facility] prehensive Internal Medicine; [facility] Work Phone: Comment on above: PATIENT WAS FASTINGP ERFORMED BY: CB [facility] Ghonls5653 [address] RoadDublin [place] [id number] GFR/1.73 sq M.predicted among blacks MDRD (S/P/Bld) [Vol rate/Area] mL/min/{1.73_m2} Normal [facility]; [facility] Work Phone: Comment on above: Note: Persistent red uction for 3 months or more in an eGFR<60 mL/min/1.73 m2 defines CKD. Patients with eGFR values>/=60 mL/min/1.73 m2 may also have CKD if evidence of persistentproteinuria is present. Additional information may be found [email or web address]. PATIENT WAS FASTINGP ERFORMED BY: CB [facility] Yaeakd1936 [address] RoadDublin [place] [id number] GFR/1.73 sq M.predicted MDRD (S/P/Bld) [Vol rate/Area] mL/min/{1.73_m2} Normal [facility]; [facility] Work Phone: Comment on above: PATIENT WAS FASTINGP ERFORMED BY: DEE [facility] Pstehi2264 [facility] [place] [id number] Globulin (S) [Mass/Vol] 3.0 g/dL Normal 1.5-4.5 [facility] Internal Medicine; [facility] Work Phone: Comment on above: PATIENT WAS FASTINGP ERFORMED BY: DEE [facility]6370 [address] [facility] [id number] Glucose [Mass/Vol] 99 mg/dL Normal 65-99 [facility] Internal Medicine; [facility] Work Phone: Comment on above: PATIENT WAS FASTINGP ERFORMED BY: DEE [facility] Npergw6323 [facility] [id number] Potassium [Moles/Vol] 4.4 mmol/L Normal 3.5-5.2 [facility]; [facility] Work Phone: Comment on above: PATIENT WAS FASTINGP ERFORMED BY: DEE [facility] Edcwma9367 [facility] [id number] Protein [Mass/Vol] 7.1 g/dL Normal 6.0-8.5 [facility] Internal Medicine; [facility] Work Phone: Comment on above: PATIENT WAS FASTINGP ERFORMED BY: [facility]6370 [facility] [id number] Sodium [Moles/Vol] 141 mmol/L Normal 135-145 [facility] Internal Medicine; [facility] Work Phone: Comment on above: PATIENT WAS FASTINGP ERFORMED BY: LabH[facility]6370 [facility] [id number] Urea nitrogen [Mass/Vol] 15 mg/dL Normal 5-26 [facility]; [facility] Work Phone: Comment on above: PATIENT WAS FASTINGP ERFORMED BY: DEE SotoOk Xrpzpv5727 [facility] [id number] Urea nitrogen/Creatinine [Mass ratio] 14 mg/mg Normal 8-27 [facility]; [facility] Work Phone: Comment on above: PATIENT WAS FASTINGP ERFORMED BY: [employer] Osojhv5016 [facility] [id number] PSA (PROSTATE SPECIFIC ANTIG EN) (V76.44)Ordered By: Plastic Press Operator on 12-19-2009 Prostate specific Ag [Mass/Vol] 0.6 ng/mL Normal 0.0-4.0 [facility]; [facility] Work Phone: Comment on above: Avnera ECLIA methodol ogy..According to the [place] [employer], Serum PSA shoulddecrease and remain at undetectable levels after radicalprostatectomy. The AUA defines biochemical recurrence as an initialPSA value 0.2 ng/mL or greater followed by a subsequent confirmatoryPSA value 0.2 ng/mL or greater.Values obtained with different assay methods or kits cannot be usedinterchangeably. Results cannot be interpreted as absolute evidenceof the presence or absence of malignant disease. PATIENT WAS FASTINGP ERFORMED BY: [employer] Tlcerw1586 [address] [facility]ight [facility]Washington [facility] [id number] Ferritin ([id number])Ordered By: Renate Yun on 04-08-2009 Ferritin [Mass/Vol] 7 ng/mL Abnormal 22-322 Compr ehensive Internal Medicine; [facility] Work Phone: Comment on above: PATIENT NOT FASTINGP ERFORMED BY: [employer] Tpkksi2714 [facility] [id number] Folic Acid Serum (72605)Orde red By: Renate Yun on 04-08-2009 Folate [Mass/Vol] ng/mL Normal Compreh ensive Internal Medicine; [facility] Work Phone: Comment on above: Indeterminate: 3.4 - 5.4 Deficient: <3.4 PATIENT NOT FASTINGC linical Information: ADD DRAW FEE [id number] ADD [id number] PERFORMED BY: DEE VelociData [facility] [id number] Iron ([id number])Ordered By: Renate Yun on 04-08-2009 Iron [Mass/Vol] 49 ug/dL Normal 40-155 [facility] Internal Medicine; [facility] Work Phone: Comment on above: PATIENT NOT FASTINGP ERFORMED BY: DEE [facility] Rhtkoi3645 [address] RoadDublin [place] [id number] Vitamin B-12 (cyanocobalamin ) (18925)Ordered By: Renate Yun on 04-08-2009 Cobalamin (Vitamin B12) [Mass/Vol] 713 pg/mL Normal 211-911 [facility]; [facility] Work Phone: Comment on above: PATIENT NOT FASTINGP ERFORMED BY: DEE [facility] Bstcgr6268 [address] [facility] [place] [id number] CBC WITH MANUAL DIFF ([id number]) Ordered By: Renate Yun on 03-25-2009 Basophils (Bld) [#/Vol] 0.0 10*3/uL Normal 0.0-0.2 [facility]; [facility] Work Phone: Comment on above: PATIENT WAS FASTINGC linical Information: ADD [id number], [id number] PERFORMED BY: DEE [facility] Zbynfr1805 [address] [facility] [id number] Basophils/100 WBC (Bld) 0 % Normal 0-3 [facility]; [facility] Work Phone: Comment on above: PATIENT WAS FASTINGC linical Information: ADD [id number], [id number] PERFORMED BY: DEE [facility] Lkrbkt0553 [address] [facility] [id number] Eosinophils (Bld) [#/Vol] 0.2 10*3/uL Normal 0.0-0.4 [facility]; [facility] Work Phone: Comment on above: PATIENT WAS FASTINGC linical Information: ADD [id number], [id number] PERFORMED BY: DEE [facility] Tpkxov3752 [address] [facility] [id number] Eosinophils/100 WBC (Bld) 3 % Normal 0-7 [facility]; [facility] Work Phone: Comment on above: PATIENT WAS FASTINGC linical Information: ADD [id number], [id number] PERFORMED BY: DEE [facility] Izbzqh4964 [facility] [id number] Erythrocyte distribution width (RBC) [Ratio] 15.9 % Abnormal 11.7-15.0 [facility]; [facility] Work Phone: Comment on above: PATIENT WAS FASTINGC linical Information: ADD [id number], [id number] PERFORMED BY: [facility] Ymfmvd2749 [facility] [id number] Hematocrit (Bld) [Volume fraction] 41.2 % Normal 36.0-50.0 [facility]; [facility] Work Phone: Comment on above: PATIENT WAS FASTINGC linical Information: ADD [id number], [id number] PERFORMED BY: DEE [facility] Clxdyw2551 [facility] [id number] Hemoglobin (Bld) [Mass/Vol] 13.6 g/dL Normal 12.5-17.0 [facility]; [facility] Work Phone: Comment on above: PATIENT WAS FASTINGC linical Information: ADD [id number], [id number] PERFORMED BY: [facility] Iwepud8967 [facility] [id number] Lymphocytes (Bld) [#/Vol] 1.5 10*3/uL Normal 0.7-4.5 [facility]; [facility] Work Phone: Comment on above: PATIENT WAS FASTINGC linical Information: ADD [id number], [id number] PERFORMED BY: [facility] Tmwkab9524 [facility] [id number] Lymphocytes/100 WBC (Bld) 26 % Normal 14-46 [facility]; [facility] Work Phone: Comment on above: PATIENT WAS FASTINGC linical Information: ADD [id number], [id number] PERFORMED BY: [facility] Mwhwcc7204 [facility] [id number] MCH (RBC) [Entitic mass] 25.6 pg Abnormal 27.0-34.0 [facility]; [facility] Work Phone: Comment on above: PATIENT WAS FASTINGC linical Information: ADD [id number], [id number] PERFORMED BY: DEE [facility] Humlkb2536 [facility] [id number] MCHC (RBC) [Mass/Vol] 33.0 g/dL Normal 32.0-36.0 [facility] prehensive Internal Medicine; [facility] Work Phone: Comment on above: PATIENT WAS FASTINGC linical Information: ADD [id number], [id number] PERFORMED BY: DEE [facility]6370 [facility] [id number] MCV (RBC) [Entitic vol] 78 fL Abnormal 80-98 [facility]; [facility] Work Phone: Comment on above: PATIENT WAS FASTINGC linical Information: ADD [id number], [id number] PERFORMED BY: DEE [facility] Zsrlza6106 [facility] [id number] Monocytes (Bld) [#/Vol] 0.7 10*3/uL Normal 0.1-1.0 [facility]; [facility] Work Phone: Comment on above: PATIENT WAS FASTINGC linical Information: ADD [id number], [id number] PERFORMED BY: DEE [facility]6370 [facility] [id number] Monocytes/100 WBC (Bld) 12 % Normal 4-13 [facility]; [facility] Work Phone: Comment on above: PATIENT WAS FASTINGC linical Information: ADD [id number], [id number] PERFORMED BY: [facility]6370 [facility] [id number] Neutrophils (Bld) [#/Vol] 3.5 10*3/uL Normal 1.8-7.8 [facility]; [facility] Work Phone: Comment on above: PATIENT WAS FASTINGC linical Information: ADD [id number], [id number] PERFORMED BY: LabMariah [place] [id number] [facility] [id number] Neutrophils/100 WBC (Bld) 59 % Normal 40-74 [facility]; [facility] Work Phone: Comment on above: PATIENT WAS FASTINGC linical Information: ADD [id number], [id number] PERFORMED BY: DEE [facility] Kdlqsb2558 [facility] [id number] Platelets (Bld) [#/Vol] 209 10*3/uL Normal 140-415 [facility]; [facility] Work Phone: Comment on above: Please note refere nce interval change PATIENT WAS FASTINGC linical Information: ADD [id number], [id number] PERFORMED BY: DEE [facility] Oqlpxx4102 [facility] [id number] RBC (Bld) [#/Vol] 5.30 10*6/uL Normal 4.10-5.60 [facility]; [facility] Work Phone: Comment on above: PATIENT WAS FASTINGC linical Information: ADD [id number], [id number] PERFORMED BY: DEE [facility] Phapud7326 [facility] [id number] WBC (Bld) [#/Vol] 5.9 10*3/uL Normal 4.0-10.5 [facility]; [facility] Work Phone: Comment on above: PATIENT WAS FASTINGC linical Information: ADD [id number], [id number] PERFORMED BY: [facility] Kjqpum1508 [facility] [id number] HEPATIC FUNCTION PANEL ([id number])Ordered By: Renate Jama on 03-25-2009 Bilirubin.direct [Mass/Vol] 0.11 mg/dL Normal 0.00-0.40 [facility]; [facility] Work Phone: Comment on above: PATIENT WAS FASTINGP ERFORMED BY: [facility] Vmgnuk2427 [facility] [id number] LIPID PANEL ([id number])Ordered B y: Renate Jama on 03-25-2009 Cholesterol [Mass/Vol] 210 mg/dL Abnormal 100-199 [facility]; [facility] Work Phone: Comment on above: PATIENT WAS FASTINGP ERFORMED BY: CB [facility] Oevkkp2306 [address]Dublin [place] [id number] Cholesterol in HDL [Mass/Vol] 48 mg/dL Normal [facility]; [facility] Work Phone: Comment on above: According to ATP-III Guidelines, HDL-C >59 mg/dL is considered anegative risk factor for CHD. PATIENT WAS FASTINGP ERFORMED BY: CB [facility] Jftmot1844 [address] RoadDuin [place] [id number] Cholesterol in LDL [Mass/Vol] 132 mg/dL Abnormal 0-99 [facility]; [facility] Work Phone: Comment on above: PATIENT WAS FASTINGP ERFORMED BY: CB [facility] Rgvcky8401 [address] RoadWashington [facility] [id number] Cholesterol in LDL/Cholesterol in HDL [Mass ratio] 2.8 {ratio_units} Normal 0.0-3.6 [facility]; [facility] Work Phone: Comment on above: PATIENT WAS FASTINGP ERFORMED BY: CB [facility] Lmskng1127 [address] RoadUnc Health [place]in [place] [id number] Cholesterol in VLDL [Mass/Vol] 30 mg/dL Normal 5-40 [facility]; [facility] Work Phone: Comment on above: PATIENT WAS FASTINGP ERFORMED BY: CB [facility] Pcmskg0325 [address]Dublin [place] [id number] Triglyceride [Mass/Vol] 150 mg/dL Abnormal 0-149 [facility]; [facility] Work Phone: Comment on above: PATIENT WAS FASTINGP ERFORMED BY: CB [facility] Upztnx[address] [facility] [id number] METABOLIC PANEL, COMPREHENSI VE ([id number])Ordered By: Renate Yun on 03-25-2009 Albumin [Mass/Vol] 4.4 g/dL Normal 3.5-5.5 [facility]; [facility] Work Phone: Comment on above: PATIENT WAS FASTINGP ERFORMED BY: DEE [facility] Zmgeqr1340 [facility] [id number] Albumin/Globulin [Mass ratio] 1.5 {ratio} Normal 1.1-2.5 [facility]; [facility] Work Phone: Comment on above: PATIENT WAS FASTINGP ERFORMED BY: DEE Connor Mnvpmo5440 [facility] [id number] ALP [Catalytic activity/Vol] 75 U/L Normal 25-150 [facility]; [facility] Work Phone: Comment on above: PATIENT WAS FASTINGP ERFORMED BY: DEE [place] [id number] [facility] [id number] ALT [Catalytic activity/Vol] 30 U/L Normal 0-55 [facility]; [facility] Work Phone: Comment on above: PATIENT WAS FASTINGP ERFORMED BY: DEE Connor Ezhzgh8017 [facility] [id number] AST [Catalytic activity/Vol] 24 U/L Normal 0-40 [facility]; [facility] Work Phone: Comment on above: PATIENT WAS FASTINGP ERFORMED BY: DEE Connor Dpoule2778 [facility] [id number] Bilirubin [Mass/Vol] 0.5 mg/dL Normal 0.1-1.2 [facility] rehensive Internal Medicine; [facility] Work Phone: Comment on above: PATIENT WAS FASTINGP ERFORMED BY: DEE [facility]Saint [facility] Nzghgo1764 [facility] [id number] Calcium [Mass/Vol] 9.5 mg/dL Normal 8.5-10.6 [facility]; [facility] Work Phone: Comment on above: PATIENT WAS FASTINGP ERFORMED BY: DEE [facility]6370 [facility] [id number] Chloride [Moles/Vol] 102 mmol/L Normal 97-108 Comp rehensive [facility] Medicine; [facility] Work Phone: Comment on above: PATIENT WAS FASTINGP ERFORMED BY: DEE López Hbajby9653 [facility] [id number] CO2 [Moles/Vol] 24 mmol/L Normal 20-32 [facility]; [facility] Work Phone: Comment on above: PATIENT WAS FASTINGP ERFORMED BY: [facility] Olxxwh0395 [facility] [id number] Creatinine [Mass/Vol] 1.18 mg/dL Normal 0.76-1.27 [facility] prehensive Internal Medicine; [facility] Work Phone: Comment on above: PATIENT WAS FASTINGP ERFORMED BY: [facility] Bdhieq5752 [facility] [id number] GFR/1.73 sq M.predicted among blacks MDRD (S/P/Bld) [Vol rate/Area] mL/min/{1.73_m2} Normal [facility]; [facility] Work Phone: Comment on above: Note: Persistent red uction for 3 months or more in an eGFR<60 mL/min/1.73 m2 defines CKD. Patients with eGFR values>/=60 mL/min/1.73 m2 may also have CKD if evidence of persistentproteinuria is present. Additional information may be found [email or web address]. PATIENT WAS FASTINGP ERFORMED BY: [facility] Tddmdk9489 [facility] [id number] GFR/1.73 sq M.predicted MDRD (S/P/Bld) [Vol rate/Area] mL/min/{1.73_m2} Normal [facility]; [facility] Work Phone: Comment on above: PATIENT WAS FASTINGP ERFORMED BY: [facility] Dyukdd6211 [facility] [id number] Globulin (S) [Mass/Vol] 2.9 g/dL Normal 1.5-4.5 [facility]; [facility] Work Phone: Comment on above: PATIENT WAS FASTINGP ERFORMED BY: [facility] Nbduxf0971 [facility] [id number] Glucose [Mass/Vol] 94 mg/dL Normal 65-99 [facility]; [facility] Work Phone: Comment on above: PATIENT WAS FASTINGP ERFORMED BY: CB [facility] Dxyvlp6805 [address] [facility] [id number] Potassium [Moles/Vol] 4.2 mmol/L Normal 3.5-5.2 [facility]; [facility] Work Phone: Comment on above: PATIENT WAS FASTINGP ERFORMED BY: CB [facility] Rltppk9370 [address] [facility] [id number] Protein [Mass/Vol] 7.3 g/dL Normal 6.0-8.5 [facility]; [facility] Work Phone: Comment on above: PATIENT WAS FASTINGP ERFORMED BY: CB [facility] Jvilhh4495 [address] [facility] [id number] Sodium [Moles/Vol] 140 mmol/L Normal 135-145 [facility]; [facility] Work Phone: Comment on above: PATIENT WAS FASTINGP ERFORMED BY: CB [facility] Xyjeyy7628 [address] [facility] [id number] Urea nitrogen [Mass/Vol] 15 mg/dL Normal 5-26 [facility]; [facility] Work Phone: Comment on above: PATIENT WAS FASTINGP ERFORMED BY: CB [facility] Cnyvwj7838 [address] [facility] [id number] Urea nitrogen/Creatinine [Mass ratio] 13 mg/mg Normal 8-27 [facility]; [facility] Work Phone: Comment on above: PATIENT WAS FASTINGP ERFORMED BY: CB [facility] Sbvold5982 [facility] [id number] MICROALBUMINOrdered By: Renate Yun on 03-25-2009 Albumin DL <= 20 mg/L (U) [Mass/Vol] 3.8 ug/mL Normal 0.0-17.0 [facility]; [facility] Work Phone: Comment on above: PATIENT WAS FASTINGP ERFORMED BY: [employer] Cuhfxh6899 [facility] [id number] Albumin/Creatinine DL <= 20 mg/L (U) [Mass ratio] 3.0 {ug/mg_creat} Normal 0.0-30.0 [facility]; [facility] Work Phone: Comment on above: PATIENT WAS FASTINGP ERFORMED BY: [facility] Ymmdcd4780 [facility] [id number] Creatinine (U) [Mass/Vol] 128.3 mg/dL Normal 22.0-328.0 [facility]; [facility] Work Phone: Comment on above: PATIENT WAS FASTINGP ERFORMED BY: [facility]GetSocial Jzjdui2536 [facility] [id number] TSH ([id number])Ordered By: Renate Yun on 03-25-2009 TSH Qn 1.420 {uIU/mL} Normal 0.450-4.500 Comprehen sive [facility]; [facility] Work Phone: Comment on above: PATIENT WAS FASTINGP ERFORMED BY: [facility] Yxjbdv7561 [facility] [id number] Urinalysis, Office ([id number])Or dered By: Nida Jarrell on 03-25-2009 Bilirubin Ql (U) Negative Normal Comprehe nsive Internal Medicine; [facility] Work Phone: Glucose Test strip (U) [Mass/Vol] Negative Normal [facility]; [facility] Work Phone: Hemoglobin Ql (U) Negative Normal Compreh ensive [facility]; [facility] Work Phone: Ketones Ql (U) Negative Normal Comprehens [facility]; [facility] Work Phone: Leukocyte esterase Test strip Ql (U) Negative Normal [facility]; [facility] Work Phone: Comment on above: aw Nitrite Ql (U) Negative Normal Comprehens [facility]; [facility] Work Phone: pH (U) 6.5 [pH] Normal [facility]; [facility] Work Phone: Protein Ql (U) Negative Normal Comprehens [facility]; [facility] Work Phone: Specific gravity (U) [Rel density] 1.020 1 Normal [facility]; [facility] Work Phone: Urobilinogen (24H U) [Mass/Time] Normal Normal [facility]; [facility] Work Phone: Vital Signs Date Time Vital Sign Value Performing Clinician Facility 12-10-2022 07:55-0400 Body height 167.64 cm Dulce Maria Slarb LABORATORY TECHNICAL SPECIALIST [facility]; [facility] Work Phone: 12-10-2022 07:55-0400 Body mass index (BMI) [Ratio] 38.9 kg/m2 Dulce Maria Slarb LABORATORY TECHNICAL SPECIALIST [facility]; [facility] Work Phone: 12-10-2022 07:55-0400 Body surface area Derived from formula 2.17 m2 Dulce Maria Slarb LABORATORY TECHNICAL SPECIALIST [facility]; [facility] Work Phone: 12-10-2022 07:55-0400 Body temperature 97.6 [degF] Dulce Maria Slarb LABORATORY TECHNICAL SPECIALIST [facility]; [facility] Work Phone: Comment on above: Method: Temporal 12-10-2022 07:55-0400 Body weight 109.32 kg Dulce Maria Slarb LABORATORY TECHNICAL SPECIALIST [facility]; [facility] Work Phone: 12-10-2022 07:55-0400 Diastolic blood pressure 92 mm[Hg] Dulce Maria Slarb LABORATORY TECHNICAL SPECIALIST [facility]; [facility] Work Phone: Comment on above: Patient Position: Sitting; Cuff Location : Left Arm; Cuff Size: Standard 12-10-2022 07:55-0400 Heart rate 76 /min Dulce Maria Slarb LABORATORY TECHNICAL SPECIALIST [facility]; [facility] Work Phone: Comment on above: Pattern: Regular 12-10-2022 07:55-0400 Respiratory rate 16 /min Dulce Maria Slarb LABORATORY TECHNICAL SPECIALIST [facility]; [facility] Work Phone: Comment on above: Pattern: Unlabored 12-10-2022 07:55-0400 SaO2% (BldA) [Mass fraction] 98 % Dulce Maria Melendez LPN [facility]; [facility] Work Phone: Comment on above: Room air 12-10-2022 07:55-0400 Systolic blood pressure 148 mm[Hg] Dulce Maria Melendez LPN [facility]; [facility] Work Phone: Comment on above: Patient Position: Sitting; Cuff Location : Left Arm; Cuff Size: Standard 10-08-2022 07:29-0500 Body height 167.64 cm Aminata Santoro MA [facility]; [facility] Work Phone: 10-08-2022 07:29-0500 Body mass index (BMI) [Ratio] 38.9 kg/m2 Aminata Santoro MA [facility]; [facility] Work Phone: 10-08-2022 07:29-0500 Body surface area Derived from formula 2.17 m2 Aminata Santoro MA [facility]; [facility] Work Phone: 10-08-2022 07:29-0500 Body temperature 96 [degF] Aminata Santoro MA [facility]; [facility] Work Phone: 10-08-2022 07:29-0500 Body weight 109.32 kg Aminata Santoro MA [facility]; [facility] Work Phone: 10-08-2022 07:29-0500 Diastolic blood pressure 80 mm[Hg] Aminata Santoro MA [facility]; [facility] Work Phone: Comment on above: Patient Position: Sitting; Cuff Location : Left Arm; Cuff Size: Standard 10-08-2022 07:29-0500 Heart rate 94 /min Aminata Santoro MA [facility]; [facility] Work Phone: Comment on above: Pattern: Regular 10-08-2022 07:29-0500 Respiratory rate 18 /min Aminata Santoro MA [facility]; [facility] Work Phone: Comment on above: Pattern: Unlabored 10-08-2022 07:29-0500 SaO2% (BldA) [Mass fraction] 93 % Aminata Santoro MA [facility]; [facility] Work Phone: Comment on above: Room air 10-08-2022 07:29-0500 Systolic blood pressure 160 mm[Hg] Aminata Santoro MA [facility]; [facility] Work Phone: Comment on above: Patient Position: Sitting; Cuff Location : Left Arm; Cuff Size: Standard 04-02-2022 07:08-0400 Body height 167.64 cm Dulce Maria Slarb LABORATORY TECHNICAL SPECIALIST [facility]; [facility] Work Phone: 04-02-2022 07:08-0400 Body mass index (BMI) [Ratio] 37.77 kg/m2 Dulce Maria Slarb LABORATORY TECHNICAL SPECIALIST [facility]; [facility] Work Phone: 04-02-2022 07:08-0400 Body surface area Derived from formula 2.14 m2 Dulce Maria Slarb LABORATORY TECHNICAL SPECIALIST [facility]; [facility] Work Phone: 04-02-2022 07:08-0400 Body temperature 96.9 [degF] Dulce Maria Slarb LABORATORY TECHNICAL SPECIALIST [facility]; [facility] Work Phone: 04-02-2022 07:08-0400 Body weight 106.14 kg Dulce Maria Slarb LABORATORY TECHNICAL SPECIALIST [facility]; [facility] Work Phone: 04-02-2022 07:08-0400 Diastolic blood pressure 82 mm[Hg] Dulce Maria Slarb LABORATORY TECHNICAL SPECIALIST [facility]; [facility] Work Phone: Comment on above: Patient Position: Sitting; Cuff Location : Left Arm; Cuff Size: Standard 04-02-2022 07:08-0400 Heart rate 72 /min Dulce Maria Slarb LABORATORY TECHNICAL SPECIALIST [facility]; [facility] Work Phone: Comment on above: Pattern: Regular 04-02-2022 07:08-0400 Respiratory rate 16 /min Dulce Maria Slarb LABORATORY TECHNICAL SPECIALIST [facility]; [facility] Work Phone: Comment on above: Pattern: Unlabored 04-02-2022 07:08-0400 SaO2% (BldA) [Mass fraction] 99 % Dulce Maria Melendez LPN [facility]; [facility] Work Phone: Comment on above: Room air 04-02-2022 07:08-0400 Systolic blood pressure 122 mm[Hg] Dulce Maria Melendez LPN [facility]; [facility] Work Phone: Comment on above: Patient Position: Sitting; Cuff Location : Left Arm; Cuff Size: Standard 11-13-2021 08:57-0500 Body height 167.64 cm Maxi Hameed LPN [facility]; [facility] Work Phone: 11-13-2021 08:57-0500 Body mass index (BMI) [Ratio] 36.77 kg/m2 Maxi Hameed LPN [facility]; [facility] Work Phone: 11-13-2021 08:57-0500 Body surface area Derived from formula 2.11 m2 Maxi Hameed LPN [facility]; [facility] Work Phone: 11-13-2021 08:57-0500 Body temperature 98.4 [degF] Maxi Haemed LPN [facility]; [facility] Work Phone: Comment on above: Method: Infrared 11-13-2021 08:57-0500 Body weight 103.33 kg Maxi Hameed LPN [facility]; [facility] Work Phone: 11-13-2021 08:57-0500 Diastolic blood pressure 80 mm[Hg] Maxi Hameed LPN [facility]; [facility] Work Phone: Comment on above: Patient Position: Sitting; Cuff Location : Left Arm; Cuff Size: Standard 11-13-2021 08:57-0500 Heart rate 84 /min Maxi Hameed LPN [facility]; [facility] Work Phone: Comment on above: Pattern: Regular 11-13-2021 08:57-0500 Respiratory rate 16 /min Maxi Hameed LPN [facility]; [facility] Work Phone: Comment on above: Pattern: Unlabored 11-13-2021 08:57-0500 SaO2% (BldA) [Mass fraction] 99 % Maxi Hameed LPN [facility]; [facility] Work Phone: Comment on above: Room air 11-13-2021 08:57-0500 Systolic blood pressure 142 mm[Hg] Maxi Hameed LPN [facility]; [facility] Work Phone: Comment on above: Patient Position: Sitting; Cuff Location : Left Arm; Cuff Size: Standard 09-22-2021 10:14-0500 Body height 167.64 cm Dulce Maria Melendez LPN [facility]; [facility] Work Phone: 09-22-2021 10:14-0500 Body mass index (BMI) [Ratio] 33.89 kg/m2 Dulce Maria Melendez LPN [facility]; [facility] Work Phone: 09-22-2021 10:14-0500 Body surface area Derived from formula 2.04 m2 Dulce Maria Melendez LPN [facility]; [facility] Work Phone: 09-22-2021 10:14-0500 Body weight 95.26 kg Dulce Maria Slamayda STEINER [facility]; [facility] Work Phone: 09-22-2021 10:14-0500 Diastolic blood pressure 90 mm[Hg] Renate Yun CNP Work Phone: [facility]; [facility] Work Phone: Comment on above: Patient Position: Supine; Cuff Location: Right Arm; Cuff Size: Standard 09-22-2021 10:14-0500 Systolic blood pressure 129 mm[Hg] Renate Yun SOFTWARE CONTROLS ENGINEER Work Phone: [facility]; [facility] Work Phone: Comment on above: Patient Position: Supine; Cuff Location: Right Arm; Cuff Size: Standard 08-24-2016 08:01-0500 Body height 167.64 cm Dulce Maria Ayannarb OBDULIA [facility]; [facility] Work Phone: 08-24-2016 08:01-0500 Body mass index (BMI) [Ratio] 39.22 kg/m2 Dulce Maria Slarb LABORATORY TECHNICAL SPECIALIST [facility]; [facility] Work Phone: 08-24-2016 08:01-0500 Body surface area Derived from formula 2.17 m2 Dulce Maria Slarb LABORATORY TECHNICAL SPECIALIST [facility]; [facility] Work Phone: 08-24-2016 08:01-0500 Body temperature 97.4 [degF] Dulce Maria Slarb LABORATORY TECHNICAL SPECIALIST [facility]; [facility] Work Phone: 08-24-2016 08:01-0500 Body weight 110.22 kg Dulce Maria Slarb LABORATORY TECHNICAL SPECIALIST [facility] Work Phone: 08-24-2016 08:01-0500 Diastolic blood pressure 84 mm[Hg] Dulce Maria Slarb LABORATORY TECHNICAL SPECIALIST [facility]; [facility] Work Phone: Comment on above: Patient Position: Sitting; Cuff Location : Left Arm; Cuff Size: Standard 08-24-2016 08:01-0500 Heart rate 85 /min Dulce Maria Ayannarb LABORATORY TECHNICAL SPECIALIST [facility]; [facility] Work Phone: Comment on above: Pattern: Regular 08-24-2016 08:01-0500 Respiratory rate 17 /min Dulce Maria Ayannarb LABORATORY TECHNICAL SPECIALIST [facility]; [facility] Work Phone: Comment on above: Pattern: Unlabored 08-24-2016 08:01-0500 SaO2% (BldA) [Mass fraction] 98 % Dulce Maria Slarb LABORATORY TECHNICAL SPECIALIST [facility]; [facility] Work Phone: Comment on above: Room air 08-24-2016 08:01-0500 Systolic blood pressure 124 mm[Hg] Dulce Maria Slarb LABORATORY TECHNICAL SPECIALIST [facility]; [facility] Work Phone: Comment on above: Patient Position: Sitting; Cuff Location : Left Arm; Cuff Size: Standard 06-24-2016 07:49-0400 Body height 167.64 cm [place] Work Phone: 06-24-2016 07:49-0400 Body mass index (BMI) [Ratio] 39.71 kg/m2 [facility]; [facility] Work Phone: 06-24-2016 07:49-0400 Body surface area Derived from formula 2.18 m2 [facility]; [facility] Work Phone: 06-24-2016 07:49-0400 Body temperature 98 [degF] [facility]; [facility] Work Phone: 06-24-2016 07:49-0400 Body weight 111.59 kg [facility]; [facility] Work Phone: 06-24-2016 07:49-0400 Diastolic blood pressure 86 mm[Hg] [facility]; [facility] Work Phone: Comment on above: Patient Position: Sitting; Cuff Location : Left Arm; Cuff Size: Standard 06-24-2016 07:49-0400 Heart rate 68 /min [facility]; [facility] Work Phone: Comment on above: Pattern: Regular 06-24-2016 07:49-0400 Respiratory rate 16 /min [facility]; [facility] Work Phone: Comment on above: Pattern: Unlabored 06-24-2016 07:49-0400 SaO2% (BldA) [Mass fraction] 98 % [facility]; [facility] Work Phone: Comment on above: Room air 06-24-2016 07:49-0400 Systolic blood pressure 136 mm[Hg] [facility]; [facility] Work Phone: Comment on above: Patient Position: Sitting; Cuff Location : Left Arm; Cuff Size: Standard 05-18-2016 08:16-0400 Body height 167.64 cm Dulce Maria Melendez [facility]; [facility] Work Phone: 05-18-2016 08:16-0400 Body mass index (BMI) [Ratio] 39.71 kg/m2 Dulce Maria Melendez LABORATORY TECHNICAL SPECIALIST [facility]; [facility] Work Phone: 05-18-2016 08:16-0400 Body surface area Derived from formula 2.18 m2 Dulce Maria Melendez LABORATORY TECHNICAL SPECIALIST [facility]; [facility] Work Phone: 05-18-2016 08:16-0400 Body temperature 97.6 [degF] Dulce Maria Urenarb LABORATORY TECHNICAL SPECIALIST [facility]; [facility] Work Phone: 05-18-2016 08:16-0400 Body weight 111.59 kg Dulce Maria Urenarb LABORATORY TECHNICAL SPECIALIST [facility]; [facility] Work Phone: 05-18-2016 08:16-0400 Diastolic blood pressure 84 mm[Hg] Dulce Maria Slarb LABORATORY TECHNICAL SPECIALIST [facility]; [facility] Work Phone: Comment on above: Patient Position: Sitting; Cuff Location : Left Arm; Cuff Size: Standard 05-18-2016 08:16-0400 Heart rate 90 /min Dulce Maria Urenarb LABORATORY TECHNICAL SPECIALIST [facility]; [facility] Work Phone: Comment on above: Pattern: Regular 05-18-2016 08:16-0400 Respiratory rate 17 /min Dulce Maria Ayannarb LABORATORY TECHNICAL SPECIALIST [facility]; [facility] Work Phone: Comment on above: Pattern: Unlabored 05-18-2016 08:16-0400 SaO2% (BldA) [Mass fraction] 99 % Dulce Maria Ayannarb LABORATORY TECHNICAL SPECIALIST [facility]; [facility] Work Phone: Comment on above: Room air 05-18-2016 08:16-0400 Systolic blood pressure 140 mm[Hg] Dulce Maria Urenarb LABORATORY TECHNICAL SPECIALIST [facility]; [facility] Work Phone: Comment on above: Patient Position: Sitting; Cuff Location : Left Arm; Cuff Size: Standard 04-20-2016 14:13-0400 Body height 167.64 cm Dulce Maria Ayannarb LABORATORY TECHNICAL SPECIALIST [facility]; [facility] Work Phone: 04-20-2016 14:13-0400 Body mass index (BMI) [Ratio] 38.62 kg/m2 Dulce Maria Slarb LABORATORY TECHNICAL SPECIALIST [facility]; [facility] Work Phone: 04-20-2016 14:130400 Body surface area Derived from formula 2.16 m2 Dulce Maria Melendez LABORATORY TECHNICAL SPECIALIST [facility]; [facility] Work Phone: 04-20-2016 14:13-0400 Body temperature 97.6 [degF] Dulce Maria Urenarb LABORATORY TECHNICAL SPECIALIST [facility]; [facility] Work Phone: 04-20-2016 14:13-0400 Body weight 108.52 kg Dulce Maria Urenarb LABORATORY TECHNICAL SPECIALIST [facility]; [facility] Work Phone: 04-20-2016 14:13-0400 Diastolic blood pressure 82 mm[Hg] Dulce Maria Slarb LABORATORY TECHNICAL SPECIALIST [facility]; [facility] Work Phone: Comment on above: Patient Position: Sitting; Cuff Location : Left Arm; Cuff Size: Standard 04-20-2016 14:13-0400 Heart rate 82 /min Dulce Maria Ayannarb LABORATORY TECHNICAL SPECIALIST [facility]; [facility] Work Phone: Comment on above: Pattern: Regular 04-20-2016 14:13-0400 Respiratory rate 16 /min Dulce Maria Urenarb LABORATORY TECHNICAL SPECIALIST [facility]; [facility] Work Phone: Comment on above: Pattern: Unlabored 04-20-2016 14:13-0400 SaO2% (BldA) [Mass fraction] 98 % Dulce Maria Ayannarb LABORATORY TECHNICAL SPECIALIST [facility]; [facility] Work Phone: Comment on above: Room air 04-20-2016 14:13-0400 Systolic blood pressure 132 mm[Hg] Dulce Maria Urenarb LABORATORY TECHNICAL SPECIALIST [facility]; [facility] Work Phone: Comment on above: Patient Position: Sitting; Cuff Location : Left Arm; Cuff Size: Standard 02-11-2016 15:03-0400 Body height 167.64 cm Dulce Maria Ayannarb LABORATORY TECHNICAL SPECIALIST [facility]; [facility] Work Phone: 02-11-2016 15:03-0400 Body mass index (BMI) [Ratio] 38.82 kg/m2 Dulce Maria Slarb LABORATORY TECHNICAL SPECIALIST [facility]; [facility] Work Phone: 02-11-2016 15:03-0400 Body surface area Derived from formula 2.16 m2 Dulce Maria Melendez LPN [facility]; [facility] Work Phone: 02-11-2016 15:03-0400 Body temperature 98.1 [degF] Dulce Maria Melendez LPN [facility]; [facility] Work Phone: 02-11-2016 15:03-0400 Body weight 109.09 kg Dulce Maria Melendez LPN [facility]; [facility] Work Phone: 02-11-2016 15:03-0400 Diastolic blood pressure 82 mm[Hg] Dulce Maria Urenarb LABORATORY TECHNICAL SPECIALIST [facility]; [facility] Work Phone: Comment on above: Patient Position: Sitting; Cuff Location : Left Arm; Cuff Size: Standard 02-11-2016 15:03-0400 Heart rate 82 /min Dulce Maria Melendez LPN [facility]; [facility] Work Phone: Comment on above: Pattern: Regular 02-11-2016 15:03-0400 Respiratory rate 17 /min Dulce Maria Melendez LPN [facility]; [facility] Work Phone: Comment on above: Pattern: Unlabored 02-11-2016 15:03-0400 SaO2% (BldA) [Mass fraction] 97 % Dulce Maria Melendez LPN [facility]; [facility] Work Phone: Comment on above: Room air 02-11-2016 15:03-0400 Systolic blood pressure 132 mm[Hg] Dulce Maria Melendez LPN [facility]; [facility] Work Phone: Comment on above: Patient Position: Sitting; Cuff Location : Left Arm; Cuff Size: Standard 05-08-2014 08:05-0400 Body height 167.64 cm Tiffanie Clifton [facility]; [facility] Work Phone: 05-08-2014 08:05-0400 Body mass index (BMI) [Ratio] 37.21 kg/m2 Tiffanie Clifton [facility]; [facility] Work Phone: 05-08-2014 08:05-0400 Body surface area Derived from formula 2.12 m2 Tiffanie Clifton LABORATORY TECHNICAL SPECIALIST [facility]; [facility] Work Phone: 05-08-2014 08:05-0400 Body temperature 98.7 [degF] Tiffanie Clifton LPN [facility]; [facility] Work Phone: Comment on above: Method: Oral 05-08-2014 08:05-0400 Body weight 104.58 kg Tiffanie Clifton [facility]; [facility] Work Phone: 05-08-2014 08:05-0400 Diastolic blood pressure 82 mm[Hg] Tiffanie Clifton [facility]; [facility] Work Phone: Comment on above: Patient Position: Sitting; Cuff Location : Left Arm; Cuff Size: Standard 05-08-2014 08:05-0400 Heart rate 72 /min Tiffanie Clifton [facility]; [facility] Work Phone: Comment on above: Pattern: Regular 05-08-2014 08:05-0400 Respiratory rate 16 /min Tiffanie Clifton LPN [facility]; [facility] Work Phone: 05-08-2014 08:05-0400 SaO2% (BldA) [Mass fraction] 97 % Tiffanie Clifton LPN [facility]; [facility] Work Phone: Comment on above: Room air 05-08-2014 08:05-0400 Systolic blood pressure 122 mm[Hg] Tiffanie Clifton LPN [facility]; [facility] Work Phone: Comment on above: Patient Position: Sitting; Cuff Location : Left Arm; Cuff Size: Standard 04-22-2014 09:02-0400 Body temperature 97.6 [degF] Tiffanie Clifton LPN [facility]; [facility] Work Phone: Comment on above: Method: Oral 04-22-2014 09:02-0400 Body weight 104.58 kg Tiffanie Clifton [facility]; [facility] Work Phone: 04-22-2014 09:02-0400 Diastolic blood pressure 78 mm[Hg] Tiffanie Clifton LABORATORY TECHNICAL SPECIALIST [facility]; [facility] Work Phone: Comment on above: Patient Position: Sitting; Cuff Location : Left Arm; Cuff Size: Standard 04-22-2014 09:02-0400 Heart rate 60 /min Tiffanie Clifton [facility]; [facility] Work Phone: Comment on above: Pattern: Regular 04-22-2014 09:02-0400 Respiratory rate 18 /min Tiffanie Clifton [facility]; [facility] Work Phone: 04-22-2014 09:02-0400 Systolic blood pressure 120 mm[Hg] Tiffanie Clifton LPN [facility]; [facility] Work Phone: Comment on above: Patient Position: Sitting; Cuff Location : Left Arm; Cuff Size: Standard 03-20-2013 15:01-0400 Body height 167.64 cm Tiffanie Clifton [facility]; [facility] Work Phone: 03-20-2013 15:01-0400 Body mass index (BMI) [Ratio] 37.16 kg/m2 Tiffanie Clifton LABORATORY TECHNICAL SPECIALIST [facility]; [facility] Work Phone: 03-20-2013 15:01-0400 Body surface area Derived from formula 2.12 m2 Tiffanie Clifton [facility]; [facility] Work Phone: 03-20-2013 15:01-0400 Body weight 104.44 kg Tiffanie Clifton [facility]; [facility] Work Phone: 03-20-2013 15:01-0400 Diastolic blood pressure 80 mm[Hg] Tiffanie Clifton LABORATORY TECHNICAL SPECIALIST [facility]; [facility] Work Phone: Comment on above: Patient Position: Sitting; Cuff Location : Left Arm; Cuff Size: Standard 03-20-2013 15:01-0400 Heart rate 70 /min Tiffanie Clifton [facility]; [facility] Work Phone: Comment on above: Pattern: Regular 03-20-2013 15:01-0400 Respiratory rate 18 /min Tiffanie Clifton LPN [facility]; [facility] Work Phone: 03-20-2013 15:01-0400 SaO2% (BldA) [Mass fraction] 97 % Tiffanie Clifton LPN [facility]; [facility] Work Phone: Comment on above: Room air 03-20-2013 15:01-0400 Systolic blood pressure 120 mm[Hg] Tiffanie Clifton LPN [facility]; [facility] Work Phone: Comment on above: Patient Position: Sitting; Cuff Location : Left Arm; Cuff Size: Standard 09-22-2012 11:09-0500 Body height 168.28 cm Tiffanie Clifton LPN [facility]; [facility] Work Phone: 09-22-2012 11:09-0500 Body mass index (BMI) [Ratio] 37.4 kg/m2 Tiffanie Clifton LPN [facility]; [facility] Work Phone: 09-22-2012 11:09-0500 Body surface area Derived from formula 2.14 m2 Tiffanie Clifton LPN [facility]; [facility] Work Phone: 09-22-2012 11:09-0500 Body temperature 98.4 [degF] Tiffanie Clifton LPN [facility]; [facility] Work Phone: Comment on above: Method: Oral 09-22-2012 11:09-0500 Body weight 105.92 kg Tiffanie Clifton LPN [facility]; [facility] Work Phone: 09-22-2012 11:09-0500 Diastolic blood pressure 84 mm[Hg] Tiffanie Clifton LPN [facility]; [facility] Work Phone: Comment on above: Patient Position: Sitting; Cuff Location : Left Arm; Cuff Size: Standard 09-22-2012 11:09-0500 Heart rate 80 /min Tiffanie Clifton LPN [facility]; [facility] Work Phone: Comment on above: Pattern: Regular 09-22-2012 11:09-0500 Respiratory rate 16 /min Tiffanie Clifton [facility]; [facility] Work Phone: Comment on above: Pattern: Unlabored 09-22-2012 11:09-0500 Systolic blood pressure 134 mm[Hg] Tiffanie Clifton [facility]; [facility] Work Phone: Comment on above: Patient Position: Sitting; Cuff Location : Left Arm; Cuff Size: Standard 09-13-2012 08:25-0500 Body height 168.28 cm Antonia Menendez LPN [facility]; [facility] Work Phone: 09-13-2012 08:25-0500 Body mass index (BMI) [Ratio] 37.4 kg/m2 Antonia Menendez LPN [facility]; [facility] Work Phone: 09-13-2012 08:25-0500 Body surface area Derived from formula 2.14 m2 Antonia Menendez LPN [facility]; [facility] Work Phone: 09-13-2012 08:25-0500 Body temperature 98.2 [degF] Antonia Menendez LPN [facility]; [facility] Work Phone: Comment on above: Method: Oral 09-13-2012 08:25-0500 Body weight 105.92 kg Antonia Menendez LPN [facility]; [facility] Work Phone: 09-13-2012 08:25-0500 Diastolic blood pressure 86 mm[Hg] Antonia Shon STEINER [facility]; [facility] Work Phone: Comment on above: Patient Position: Sitting; Cuff Location : Left Arm; Cuff Size: Standard 09-13-2012 08:25-0500 Heart rate 82 /min Antonia Sorensenzti [facility]; [facility] Work Phone: Comment on above: Pattern: Regular 09-13-2012 08:25-0500 Respiratory rate 18 /min Antonia Sorensenzti LABORATORY TECHNICAL SPECIALIST [facility]; [facility] Work Phone: Comment on above: Pattern: Unlabored 09-13-2012 08:25-0500 Systolic blood pressure 132 mm[Hg] Antonia Menendez LABORATORY TECHNICAL SPECIALIST [facility]; [facility] Work Phone: Comment on above: Patient Position: Sitting; Cuff Location : Left Arm; Cuff Size: Standard 05-25-2012 13:17-0400 Body height 168.28 cm Maylin Castellano RN [facility]; [facility] Work Phone: Comment on above: hearing wnlvision without correction od= 20/30 os=20/20 ou=20/20 05-25-2012 13:17-0400 Body mass index (BMI) [Ratio] 37.4 kg/m2 Maylin Castellano RN [facility]; [facility] Work Phone: Comment on above: hearing wnlvision without correction od= 20/30 os=20/20 ou=20/20 05-25-2012 13:17-0400 Body surface area Derived from formula 2.14 m2 Maylin Castellano RN [facility]; [facility] Work Phone: Comment on above: hearing wnlvision without correction od= 20/30 os=20/20 ou=20/20 05-25-2012 13:17-0400 Body temperature 98.1 [degF] Maylin Castellano RN [facility]; [facility] Work Phone: Comment on above: Method: Oral hearing wnlvision wi thout correction od=20/30 os=20/20 ou=20/20 05-25-2012 13:17-0400 Body weight 105.92 kg Maylin Castellano RN [facility]; [facility] Work Phone: Comment on above: hearing wnlvision without correction od= 20/30 os=20/20 ou=20/20 05-25-2012 13:17-0400 Diastolic blood pressure 78 mm[Hg] Maylin Castellano RN [facility]; [facility] Work Phone: Comment on above: Patient Position: Sitting; Cuff Location : Left Arm; Cuff Size: Large hearing wnlvision wi thout correction od=20/30 os=20/20 ou=20/20 05-25-2012 13:17-0400 Heart rate 68 /min Maylin Castellano RN [facility]; [facility] Work Phone: Comment on above: Pattern: Regular hearing wnlvision wi thout correction od=20/30 os=20/20 ou=20/20 05-25-2012 13:17-0400 Respiratory rate 20 /min Maylin Castellano RN [facility]; [facility] Work Phone: Comment on above: Pattern: Unlabored hearing wnlvision wi thout correction od=20/30 os=20/20 ou=20/20 05-25-2012 13:17-0400 Systolic blood pressure 128 mm[Hg] Maylin Castellano RN [facility]; [facility] Work Phone: Comment on above: Patient Position: Sitting; Cuff Location : Left Arm; Cuff Size: Large hearing wnlvision wi thout correction od=20/30 os=20/20 ou=20/20 09-23-2011 11:24-0500 Body height 168.28 cm Maylin Castellano RN [facility]; [facility] Work Phone: 09-23-2011 11:24-0500 Body mass index (BMI) [Ratio] 37.57 kg/m2 Maylin Castellano RN [facility]; [facility] Work Phone: 09-23-2011 11:24-0500 Body surface area Derived from formula 2.15 m2 Maylin Castellano RN [facility]; [facility] Work Phone: 09-23-2011 11:24-0500 Body temperature 98 [degF] Maylin Castellano RN [facility]; [facility] Work Phone: Comment on above: Method: Oral 09-23-2011 11:24-0500 Body weight 106.4 kg Maylin Castellano RN [facility]; [facility] Work Phone: 09-23-2011 11:24-0500 Diastolic blood pressure 82 mm[Hg] Maylin Feliz [facility]; [facility] Work Phone: Comment on above: Patient Position: Sitting; Cuff Location : Left Arm; Cuff Size: Large 09-23-2011 11:24-0500 Heart rate 68 /min Maylin Castellano RN [facility]; [facility] Work Phone: Comment on above: Pattern: Regular 09-23-2011 11:24-0500 Respiratory rate 20 /min Maylin Castellano RN [facility]; [facility] Work Phone: Comment on above: Pattern: Unlabored 09-23-2011 11:24-0500 Systolic blood pressure 124 mm[Hg] Maylin Castellano RN [facility]; [facility] Work Phone: Comment on above: Patient Position: Sitting; Cuff Location : Left Arm; Cuff Size: Large 09-01-2011 10:48-0500 Body height 168.28 cm Radha Feliz [facility]; [facility] Work Phone: 09-01-2011 10:48-0500 Body mass index (BMI) [Ratio] 37.16 kg/m2 Radha Feliz [facility]; [facility] Work Phone: 09-01-2011 10:48-0500 Body surface area Derived from formula 2.14 m2 Radha Titus [facility]; [facility] Work Phone: 09-01-2011 10:48-0500 Body temperature 97.5 [degF] Radha Titus [facility]; [facility] Work Phone: 09-01-2011 10:48-0500 Body weight 105.24 kg Radha Feliz [facility]; [facility] Work Phone: 09-01-2011 10:48-0500 Diastolic blood pressure 88 mm[Hg] Radha Feliz [facility]; [facility] Work Phone: Comment on above: Patient Position: Sitting; Cuff Location : Left Arm; Cuff Size: Large 09-01-2011 10:48-0500 Heart rate 80 /min Radha Titus [facility]; [facility] Work Phone: Comment on above: Pattern: Regular 09-01-2011 10:48-0500 Respiratory rate 16 /min Radha Titus [facility]; [facility] Work Phone: Comment on above: Pattern: Unlabored 09-01-2011 10:48-0500 Systolic blood pressure 132 mm[Hg] Radha Titus [facility]; [facility] Work Phone: Comment on above: Patient Position: Sitting; Cuff Location : Left Arm; Cuff Size: Large 04-16-2011 08:36-0400 Body height 168.28 cm Radha Titus [facility]; [facility] Work Phone: 04-16-2011 08:36-0400 Body mass index (BMI) [Ratio] 34.92 kg/m2 Radha Titus [facility]; [facility] Work Phone: 04-16-2011 08:36-0400 Body surface area Derived from formula 2.08 m2 Rdaha Titus [facility]; [facility] Work Phone: 04-16-2011 08:36-0400 Body temperature 97.8 [degF] Radha Titus [facility]; [facility] Work Phone: 04-16-2011 08:36-0400 Body weight 98.88 kg Radha Titus [facility]; [facility] Work Phone: 04-16-2011 08:36-0400 Diastolic blood pressure 78 mm[Hg] Radha Titus [facility]; [facility] Work Phone: Comment on above: Patient Position: Sitting; Cuff Location : Left Arm; Cuff Size: Large 04-16-2011 08:36-0400 Heart rate 76 /min Radha Titus [facility]; [facility] Work Phone: Comment on above: Pattern: Regular 04-16-2011 08:36-0400 Respiratory rate 16 /min Radha Titus [facility]; [facility] Work Phone: Comment on above: Pattern: Unlabored 04-16-2011 08:36-0400 Systolic blood pressure 118 mm[Hg] Radha Titus [facility]; [facility] Work Phone: Comment on above: Patient Position: Sitting; Cuff Location : Left Arm; Cuff Size: Large 09-09-2010 12:38-0500 Body temperature 100.3 [degF] Antonia Sorensenzti LABORATORY TECHNICAL SPECIALIST [facility]; [facility] Work Phone: Comment on above: Method: Oral 09-09-2010 12:38-0500 Body weight 106.14 kg Antonia Sorensenzti LABORATORY TECHNICAL SPECIALIST [facility]; [facility] Work Phone: 09-09-2010 12:38-0500 Diastolic blood pressure 84 mm[Hg] Antonia Loweuszti LABORATORY TECHNICAL SPECIALIST [facility]; [facility] Work Phone: Comment on above: Patient Position: Sitting; Cuff Location : Left Arm; Cuff Size: Standard 09-09-2010 12:38-0500 Heart rate 60 /min Antoniabenji Sorensenzti LABORATORY TECHNICAL SPECIALIST [facility]; [facility] Work Phone: Comment on above: Pattern: Regular 09-09-2010 12:38-0500 Respiratory rate 16 /min Antonia Sorensenzti LABORATORY TECHNICAL SPECIALIST [facility]; [facility] Work Phone: Comment on above: Pattern: Wheezing 09-09-2010 12:38-0500 Systolic blood pressure 140 mm[Hg] Antonia Sorensenzti LABORATORY TECHNICAL SPECIALIST [facility]; [facility] Work Phone: Comment on above: Patient Position: Sitting; Cuff Location : Left Arm; Cuff Size: Standard 04-24-2010 08:16-0400 Body temperature 97.3 [degF] Brianne Vides RN [facility]; [facility] Work Phone: Comment on above: Method: Oral 04-24-2010 08:16-0400 Body weight 106.14 kg Brianne Vides RN [facility]; [facility] Work Phone: 04-24-2010 08:16-0400 Diastolic blood pressure 82 mm[Hg] Brianne Vides RN [facility]; [facility] Work Phone: Comment on above: Patient Position: Sitting; Cuff Location : Left Arm; Cuff Size: Large 04-24-2010 08:16-0400 Heart rate 64 /min Brianne Vides RN [facility]; [facility] Work Phone: Comment on above: Pattern: Regular 04-24-2010 08:16-0400 Respiratory rate 16 /min Brianne Vides RN [facility]; [facility] Work Phone: Comment on above: Pattern: Unlabored 04-24-2010 08:16-0400 Systolic blood pressure 138 mm[Hg] Brianne Vides RN [facility]; [facility] Work Phone: Comment on above: Patient Position: Sitting; Cuff Location : Left Arm; Cuff Size: Large 12-19-2009 07:20-0400 Body temperature 97.8 [degF] Radha Titus [facility]; [facility] Work Phone: 12-19-2009 07:20-0400 Body weight 103.87 kg Radha Titus [facility]; [facility] Work Phone: 12-19-2009 07:20-0400 Diastolic blood pressure 86 mm[Hg] Radha Titus [facility]; [facility] Work Phone: Comment on above: Patient Position: Sitting; Cuff Location : Left Arm; Cuff Size: Large 12-19-2009 07:20-0400 Heart rate 76 /min Radha Titus [facility]; [facility] Work Phone: Comment on above: Pattern: Regular 12-19-2009 07:20-0400 Respiratory rate 18 /min Radha Titus [facility]; [facility] Work Phone: Comment on above: Pattern: Unlabored 12-19-2009 07:20-0400 Systolic blood pressure 120 mm[Hg] Radha Titus [facility]; [facility] Work Phone: Comment on above: Patient Position: Sitting; Cuff Location : Left Arm; Cuff Size: Large 09-11-2009 08:55-0500 Body height 165.1 cm Tiffanie Clifton LPN [facility]; [facility] Work Phone: 09-11-2009 08:55-0500 Body mass index (BMI) [Ratio] 36.15 kg/m2 Tiffanie Clifton LPN [facility]; [facility] Work Phone: 09-11-2009 08:55-0500 Body surface area Derived from formula 2.05 m2 Tiffanie Clifton LPN [facility]; [facility] Work Phone: 09-11-2009 08:55-0500 Body temperature 96.3 [degF] Tiffanie Clifton LPN [facility]; [facility] Work Phone: Comment on above: Method: Oral 09-11-2009 08:55-0500 Body weight 98.54 kg Tiffanie Clifton LPN [facility]; [facility] Work Phone: 09-11-2009 08:55-0500 Diastolic blood pressure 86 mm[Hg] Tiffanie Clifton LPN [facility]; [facility] Work Phone: Comment on above: Patient Position: Sitting; Cuff Location : Left Arm; Cuff Size: Standard 09-11-2009 08:55-0500 Heart rate 72 /min Tiffanie Clifton LPN [facility]; [facility] Work Phone: Comment on above: Pattern: Regular 09-11-2009 08:55-0500 Respiratory rate 17 /min Tiffanie Clifton LPN [facility]; [facility] Work Phone: Comment on above: Pattern: Unlabored 09-11-2009 08:55-0500 Systolic blood pressure 122 mm[Hg] Tiffanie Clifton LPN [facility]; [facility] Work Phone: Comment on above: Patient Position: Sitting; Cuff Location : Left Arm; Cuff Size: Standard 09-08-2009 11:48-0500 Body height 0 cm Brianne Vides RN [facility]; [facility] Work Phone: 09-08-2009 11:48-0500 Body temperature 98 [degF] Brianne Vides RN [facility]; [facility] Work Phone: Comment on above: Method: Oral 09-08-2009 11:48-0500 Body weight 0 kg Brianne Vides RN [facility]; [facility] Work Phone: 09-08-2009 11:48-0500 Diastolic blood pressure 90 mm[Hg] Brianne Vides RN [facility]; [facility] Work Phone: Comment on above: Patient Position: Sitting; Cuff Location : Left Arm; Cuff Size: Large 09-08-2009 11:48-0500 Head Occipital-frontal circumference 0 cm Brianne Vides RN [facility]; [facility] Work Phone: 09-08-2009 11:48-0500 Heart rate 76 /min Brianne Vides RN [facility]; [facility] Work Phone: Comment on above: Pattern: Regular 09-08-2009 11:48-0500 Respiratory rate 18 /min Brianne Vides RN [facility]; [facility] Work Phone: Comment on above: Pattern: Unlabored 09-08-2009 11:48-0500 Systolic blood pressure 130 mm[Hg] Brianne Vides RN [facility]; [facility] Work Phone: Comment on above: Patient Position: Sitting; Cuff Location : Left Arm; Cuff Size: Large 06-19-2009 09:09-0400 Body height 165.1 cm Freda Feliz [facility]; [facility] Work Phone: 06-19-2009 09:09-0400 Body mass index (BMI) [Ratio] 36.15 kg/m2 Freda Feliz [facility]; [facility] Work Phone: 06-19-2009 09:09-0400 Body surface area Derived from formula 2.05 m2 Freda Jones [facility]; [facility] Work Phone: 06-19-2009 09:09-0400 Body temperature 97.7 [degF] Freda Jones [facility]; [facility] Work Phone: Comment on above: Method: Oral 06-19-2009 09:09-0400 Body weight 98.54 kg Freda Feliz [facility]; [facility] Work Phone: 06-19-2009 09:09-0400 Diastolic blood pressure 88 mm[Hg] Freda Jones [facility]; [facility] Work Phone: Comment on above: Patient Position: Supine; Cuff Location: Left Arm; Cuff Size: Standard 06-19-2009 09:09-0400 Head Occipital-frontal circumference 0 cm Freda Jones [facility]; [facility] Work Phone: 06-19-2009 09:09-0400 Heart rate 60 /min Freda Jones [facility]; [facility] Work Phone: Comment on above: Pattern: Regular 06-19-2009 09:09-0400 Respiratory rate 16 /min Freda Jones [facility]; [facility] Work Phone: Comment on above: Pattern: Unlabored 06-19-2009 09:09-0400 Systolic blood pressure 120 mm[Hg] Freda Jones [facility]; [facility] Work Phone: Comment on above: Patient Position: Supine; Cuff Location: Left Arm; Cuff Size: Standard 04-08-2009 08:53-0400 Body height 0 cm [facility]; [facility] Work Phone: 04-08-2009 08:53-0400 Body temperature 98.2 [degF] [facility]; [facility] Work Phone: Comment on above: Method: Oral 04-08-2009 08:53-0400 Body weight 99.05 kg [facility]; [facility] Work Phone: 04-08-2009 08:53-0400 Diastolic blood pressure 82 mm[Hg] [facility]; [facility] Work Phone: Comment on above: Patient Position: Sitting; Cuff Location : Left Arm; Cuff Size: Large 04-08-2009 08:53-0400 Head Occipital-frontal circumference 0 cm [facility]; [facility] Work Phone: 04-08-2009 08:53-0400 Heart rate 72 /min [facility]; [facility] Work Phone: Comment on above: Pattern: Regular 04-08-2009 08:53-0400 Respiratory rate 18 /min [facility]; [facility] Work Phone: Comment on above: Pattern: Unlabored 04-08-2009 08:53-0400 Systolic blood pressure 134 mm[Hg] [facility]; [facility] Work Phone: Comment on above: Patient Position: Sitting; Cuff Location : Left Arm; Cuff Size: Large 03-25-2009 08:49-0400 Body height 166.37 cm Maylin Castellano RN [facility]; [facility] Work Phone: 03-25-2009 08:49-0400 Body mass index (BMI) [Ratio] 36.23 kg/m2 Maylin Castellano RN [facility]; [facility] Work Phone: 03-25-2009 08:49-0400 Body surface area Derived from formula 2.08 m2 Maylin Castellano RN [facility]; [facility] Work Phone: 03-25-2009 08:49-0400 Body weight 100.27 kg Maylin Castellano RN [facility]; [facility] Work Phone: 03-25-2009 08:49-0400 Diastolic blood pressure 82 mm[Hg] Maylin Castellano RN [facility]; [facility] Work Phone: Comment on above: Patient Position: Sitting; Cuff Location : Left Arm; Cuff Size: Large 03-25-2009 08:49-0400 Head Occipital-frontal circumference 0 cm Maylin Castellano RN [facility]; [facility] Work Phone: 03-25-2009 08:49-0400 Heart rate 64 /min Maylin Castellano RN [facility]; [facility] Work Phone: Comment on above: Pattern: Regular 03-25-2009 08:49-0400 Respiratory rate 20 /min Maylin Castellano RN [facility]; [facility] Work Phone: Comment on above: Pattern: Unlabored 03-25-2009 08:49-0400 Systolic blood pressure 124 mm[Hg] Maylin Castellano RN [facility]; [facility] Work Phone: Comment on above: Patient Position: Sitting; Cuff Location : Left Arm; Cuff Size: Large Encounters Encounter Date Encounter Type Care Provider Facility Start: 08-28-2024 End: 08-28-2024 ambulatory Obey DUNN Facility:[facility] Start: 05-29-2024 End: 05-29-2024 ambulatory Obey DUNN Facility:[facility] Start: 12-10-2022 Review Nohemy Doran CNP Work Phone: [facility] Start: 12-10-2022 End: 12-10-2022 Office outpatient visit 15 minutes Nohemy Doran SOFTWARE CONTROLS ENGINEER Work Phone: [facility] Start: 10-08-2022 End: 10-08-2022 Office outpatient visit 15 minutes Nohemy Doran SOFTWARE CONTROLS ENGINEER Work Phone: [facility] Start: 09-10-2022 ambulatory Crow A Fast DO [facility] Start: 04-02-2022 End: 04-02-2022 Office outpatient visit 15 minutes Nohemy Doran SOFTWARE CONTROLS ENGINEER Work Phone: [facility] Start: 11-13-2021 End: 11-13-2021 Office outpatient visit 15 minutes Renate Headalejandra SOFTWARE CONTROLS ENGINEER Work Phone: [facility] Start: 09-22-2021 End: 09-22-2021 Office outpatient new 30 minutes Renate Heada SOFTWARE CONTROLS ENGINEER Work Phone: [facility] Start: 09-22-2021 Review Renate Heada SOFTWARE CONTROLS ENGINEER Work Phone: [facility] Start: 01-11-2020 End: 04-11-2020 Patient encounter procedure RAMONITA HERNANDEZ [facility] Start: 11-09-2019 End: 01-09-2020 Patient encounter procedure RAMONITA HERNANDEZ [facility] Start: 08-27-2016 End: 08-27-2016 Annotation/Addendum Renate Heada SOFTWARE CONTROLS ENGINEER Work Phone: [facility] Start: 08-24-2016 End: 08-24-2016 Office outpatient visit 25 minutes Renate Heada SOFTWARE CONTROLS ENGINEER Work Phone: [facility] Start: 06-24-2016 End: 06-24-2016 Office outpatient visit 15 minutes Renate Heada SOFTWARE CONTROLS ENGINEER Work Phone: [facility] Start: 05-18-2016 End: 05-18-2016 Office outpatient visit 15 minutes Renate Yun CNP Work Phone: [facility] Start: 04-20-2016 End: 04-20-2016 Office outpatient visit 25 minutes Renate Yun CNP Work Phone: [facility] Start: 02-11-2016 End: 02-11-2016 Office outpatient visit 15 minutes Renate Yun CNP Work Phone: [facility] Start: 05-08-2014 End: 05-08-2014 Office outpatient visit 25 minutes Renate Yun CNP Work Phone: [facility] Start: 04-22-2014 End: 04-22-2014 Office outpatient visit 25 minutes Renate Yun CNP Work Phone: [facility] Start: 04-22-2014 End: 04-22-2014 Patient encounter status Nohemy Doran CNP Work Phone: [facility] Start: 03-20-2013 End: 03-20-2013 Office outpatient visit 25 minutes Renate Yun CNP Work Phone: [facility] Start: 09-22-2012 End: 09-22-2012 Office outpatient visit 15 minutes Renate Yun CNP Work Phone: [facility] Start: 09-18-2012 End: 09-18-2012 Office outpatient visit 25 minutes Renate Yun CNP Work Phone: [facility] Start: 09-13-2012 End: 09-13-2012 Office outpatient visit 40 minutes Renate Yun CNP Work Phone: [facility] Start: 05-25-2012 End: 05-25-2012 Patient encounter procedure Renate Yun CNP Work Phone: [facility] Start: 05-25-2012 End: 05-25-2012 Patient encounter status Nohemy Doran CNP Work Phone: [facility] Start: 09-23-2011 End: 09-23-2011 Patient encounter procedure Renate Yun CNP Work Phone: [facility] Start: 09-01-2011 End: 09-01-2011 Patient encounter procedure Renate Yun CNP Work Phone: [facility] Start: 04-16-2011 End: 04-16-2011 Patient encounter procedure Renate Yun CNP Work Phone: [facility] Start: 09-09-2010 End: 09-09-2010 Patient encounter procedure Renate Yun CNP Work Phone: [facility] Start: 04-24-2010 End: 04-24-2010 Office outpatient visit 25 minutes Renate Yun CNP Work Phone: [facility] Start: 12-19-2009 End: 12-19-2009 Patient encounter procedure Renate Yun CNP Work Phone: [facility] Start: 09-11-2009 End: 09-11-2009 Patient encounter procedure Renate Yun CNP Work Phone: [facility] Start: 09-08-2009 End: 09-08-2009 Office outpatient visit 25 minutes Renate Yun CNP Work Phone: [facility] Start: 06-19-2009 End: 06-19-2009 Office outpatient visit 25 minutes Renate Yun CNP Work Phone: [facility] Start: 04-09-2009 End: 04-09-2009 Patient encounter procedure Renate Yun CNP Work Phone: [facility] Start: 04-08-2009 End: 04-08-2009 Office outpatient visit 25 minutes Renate Yun CNP Work Phone: [facility] Start: 03-31-2009 End: 03-31-2009 Historical Summary Renate Yun CNP Work Phone: [facility] Start: 03-26-2009 End: 03-26-2009 Patient encounter procedure Renate Yun CNP Work Phone: [facility] Start: 03-25-2009 End: 03-25-2009 Office outpatient new 30 minutes Renate Yun CNP Work Phone: [facility] Start: 03-25-2009 End: 03-25-2009 Patient encounter status Nohemy Doran SOFTWARE CONTROLS ENGINEER Work Phone: [facility] Patient encounter status Dulce Maria Melendez LABORATORY TECHNICAL SPECIALIST [facility]; [facility] Work Phone: Patient encounter status Dulce Maria Melendez LABORATORY TECHNICAL SPECIALIST [facility]; [facility] Work Phone: Patient encounter status Maxi Hameed LABORATORY TECHNICAL SPECIALIST [facility]; [facility] Work Phone: Patient encounter status Dulce Maria Melendez OBDULIA [facility]; [facility] Work Phone: Patient encounter status Aminata Maude HENRY [facility]; [facility] Work Phone: Patient encounter status Dulce Maria Melendez LABORATORY TECHNICAL SPECIALIST [facility]; [facility] Work Phone: Physical examination Dulce Maria Melendez LPN [facility]; [facility] Work Phone: Procedures Date Procedure Procedure Detail Performing Clinician Start: 05-03-2022 End: 05-03-2022 Urgent Care Visit Report Procedure Note: See Note; NOTES: [facility] [address] [place] [address] OFFICE VISIT Date of Service: 05/03/22 MR#: [id number] Acct: [id number] Name: MILKA LANGFORD Rep #: [id number] : 1960 Provider: MONA Smith Age/Sex: 61/M Location: [facility] Status: Signed Intake Intake Visit 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 Please see corresponding scanned documents with today's date. Office Procedures Physical Exam Coding PE Coding DOT PE: Yes Coding Level of Care Code No Charge Diagnoses Encounter for examination required by Department of Transportation (DOT) Z02.89 Assessment and Plan Assessment and Plan (1) Encounter for examination required by Department of Transportation (DOT): Status: Acute 05/03/22 1701 <Electronically signed by Sudheer DUNN> Date Sudheer DUNN Cosigner Signature: Date (if applicable) CC: Nohemy Doran CNP Work Phone: Start: 05-15-2021 End: 05-15-2021 Urgent Care Visit Report Comments: See Note; NOTES: [facility] [address] [place] [address] [address] [place] [address] OFFICE VISIT Date of Service: 05/15/21 MR#: [id number] Acct: [id number] Name: MILKA LANGFORD Rep #: [id number] : 1960 Provider: MONA Smith Age/Sex: 60/M Location: [facility] Status: Signed Intake Intake Visit Reasons: DOT PHYSICAL Chief Complaint: DOT physical Allergies No Known Allergies Allergy (Verified 02/21/20 08:13) PFSH Social History (Updated 05/16/20 @ 11:15 by MONA Gr) Smoking Status: Never smoker HPI HPI Chief Complaint: DOT physical Details: MILKA LANGFORD, is a 60 M who presents to the office today for DOT physical. Please see corresponding scanned documents with today's date. Office Procedures Physical Exam Coding PE Coding DOT PE: Yes Coding Level of Care Code No Charge Diagnoses Encounter for examination required by Department of Transportation (DOT) Z02.89 CPT Codes PE Coding - DOT PE: Yes (DOTPE) Assessment and Plan Assessment and Plan (1) Encounter for examination required by Department of Transportation (DOT): Status: Acute 05/15/21 1124 <Electronically signed by Sudheer DUNN> Date Sudheer Duran Signature: Date (if applicable) CC: Renate Yun FAY Work Phone: Start: 05-16-2020 End: 05-16-2020 Urgent Care Visit Report Comments: See Note; NOTES: [facility] [address] [place] [address] [address] [place] [address] OFFICE VISIT Date of Service: 05/16/20 MR#: [id number] Acct: [id number] Name: MILKA LANGFORD Rep #: [id number] : 1960 Provider: MONA Smith Age/Sex: 59/M Location: [facility] Status: Signed Intake Vital Signs 05/16/20 BMI 30.5 Intake Visit Reasons: DOT PHYSICAL/SELF PAY Chief Complaint: DOT physical Allergies No Known Allergies Allergy (Verified 02/21/20 08:13) PFSH Social History (Updated 05/16/20 @ 11:15 by MONA Gr) Smoking Status: Never smoker HPI HPI Chief Complaint: DOT physical Details: MILKA LANGFORD, is a 59 M who presents to the office today for DOT physical. Please see corresponding scanned documents with today's date. Patient did not receive a medical card today due to his poor vision. Office Procedures Physical Exam Coding PE Coding DOT PE: Yes Assessment Plan Problems 1. Encounter for examination required by Department of Transportation (DOT) Z02.89 Status Acute Coding Level of Care Code No Charge Diagnoses Encounter for examination required by Department of Transportation (DOT) Z02.89 Additional Codes PE Coding - DOT PE: Yes (DOTPE) 05/16/20 1115 <Electronically signed by Sudheer DUNN> Date Sudheer DUNN Cosigner Signature: Date (if applicable) CC: Renate Yun SOFTWARE CONTROLS ENGINEER Work Phone: Start: 02-21-2020 End: 02-21-2020 Orthopedic Visit Report Comments: See Note; NOTES: [facility] [address] [place] [id number] OFFICE VISIT Date of Service: 02/21/20 MR#: [id number] Acct: [id number] Name: MILKA LANGFORD Rep #: [id number] : 1960 Provider: Dr. Beatriz walsh DO Age/Sex: 59/M Location: [facility] Status: Signed Intake Vital Signs 02/21/20 BMI 30.5 Intake Visit Reasons: Right shoulder Is patient in pain?: Yes Allergies No Known Allergies Allergy (Verified 02/21/20 08:13) PFSH Social History (Updated 02/21/20 @ 12:[address] Beatriz Ordaz DO) Smoking Status: Never smoker HPI Right shoulder: Details: Parts of this documentation were recorded by a scribe, this documentation accurately reflects the service provided and the decisions made by me, Dr. Beatriz Ordaz DO 02/21/20 0808. MILKA LANGFORD is a 59 year old M here today for a followup on his right shoulder. Patient states that he continues to have right shoulder pain. He states that he has pain over his entire shoulder and into his lateral shoulder. Patients range of motion has improved since he first saw us, but he still has limited range of motion. He is currently in physical therapy. Patients last injection was on 11/01/19 which he is unsure if it was helpful. He has been taking meloxicam which is helpful. He has an approval for an injection for today. He does not wish to proceed with surgery at this time. He is working currently with a 5 pound lifting restriction. ROS Musc Reports joint pain, Reports limited joint movement, Denies numbness, Reports stiffness, Denies tingling Skin/Breast Reports system reviewed and no additional complaints, except as docu Neuro Yes system reviewed and no additional complaints, except as docu, No numbness, No tingling Office Procedures Kenalog 40 mg/mL suspension for injection (triamcinolone acetonide) 80 mg intrabursal ONCE Injections Yes Subacromial Injection Right Office Meds Tanmay Performing Provider: Beatriz Ordaz DO Administered by: Beatriz Ordaz DO on 02/21/20 08:30 Dose Route Admin Location Lot Number Expiration Date NDC Manufactu rer 80 mg intrabursal right subacromial Assessment Plan Problems 1. Strain of unspecified muscle, fascia and tendon at shoulder and upper arm level, right arm, initial encounter S46.757E Plan Spoke with the patient about the benefits of an injection. He should ice his shoulder over the next few days. If he does not have any relief from the injection, he would be a candidate for surgery. Patient will continue with the same restrictions over the next month. Follow up on an as needed basis or sooner if pain, swelling, numbness or associated symptoms, or concerns develop. All questions answered. Patient in agreement of plan. Orders Orders: Ortho Injections Today S46.011A Coding Level of Care Code Attention Chente Diagnoses Strain of unspecified muscle, fascia and tendon at shoulder and upper arm level, right arm, initial encounter S46.150Z Additional Codes voice writing reporter.sub ([id number]) 02/21/20 1204 <Electronically signed by Beatriz Ordaz DO> Date Beatriz Ordaz DO Cosigner Signature: Date (if applicable) CC: Renate Yun SOFTWARE CONTROLS ENGINEER Work Phone: Start: 01-24-2020 End: 01-24-2020 /[email or web address].VV Comments: See Note; NOTES: [facility] [address] [id number] OFFICE VISIT Date of Service: 01/24/20 MR#: [id number] Acct: [id number] Patient: MILKA LANGFORD Rep #: [id number] : 1960 Provider: Dr. Beatriz walsh DO Age/Sex: 59/M [place] [facility] [place] Status: Signed Intake Vital Signs 01/24/20 BMI 30.5 11/26/19 BMI 30.5 Intake Visit Reasons: right shoulder Is patient in pain?: Yes Allergies No Known Allergies Allergy (Verified 01/24/20 08:33) PFSH Social History (Updated 01/24/20 @ 09:[address] Beatriz Ordaz DO) Smoking Status: Never smoker HPI HPI Details: Patient was informed that this visit will be billed to patient. This visit was conducted during COVID-19 pandemic. MILKA LANGFORD, is a 59 M who presents to the office today for a followup on his right shoulder. Patient notes that he continues to have shoulder pain. He states that it feels like someone hit him with a baseball into the shoulder. Patient complains of pain over his superior shoulder and over his lateral shoulder. He has limited range of motion behind his back. Patient continues to have physical therapy which has been helpful. He had an injection on 11/01/19 which was minimally helpful. Patient took meloxicam which was helpful. He had an MRI. Patient is working currently with light duty restrictions. 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 [facility] Musculoskeletal: Positive for joint pain, limited range of motion and stiffness Assessment Plan Problems 1. Strain of unspecified muscle, fascia and tendon at shoulder and upper arm level, right arm, initial encounter S46.911A 2. Superior glenoid labrum lesion of right shoulder, initial encounter S43.431A 3. Traumatic complete tear of right rotator cuff, initial encounter S46.011A Plan phone visit virtual visit time spent 5 minutes discussed options with patient patient elects to proceed with PT at this time and not interested in surgical intervention as feels like improving still will lift some of his work restrictions. if increases pain, told to come back in for another injection and if this fails would consider surgery after that point meloxicam also called in with refills, told to stop all other nsaids Follow up with rickie wayt or sooner if pain, swelling, numbness or associated symptoms, or concerns develop. All questions answered. Patient in agreement of plan. Medications Refilled: meloxicam 15 mg PO DAILY 30 tabs 0RF Coding Level of Care Code 5-10 minutes Diagnoses Strain of unspecified muscle, fascia and tendon at shoulder and upper arm level, right arm, initial encounter S46.911A Superior glenoid labrum lesion of right shoulder, initial encounter S43.431A Traumatic complete tear of right rotator cuff, initial encounter S46.011A ?Encounter type: initial encounter ?Rotator cuff tear extent: complete 01/24/20 0905 <Electronically signed by Beatriz Ordaz DO> Date Beatriz Lawrenceigner Signature: Date (if applicable) CC: Renate Yun SOFTWARE CONTROLS ENGINEER Work Phone: Start: 11-26-2019 End: 11-26-2019 Orthopedic Visit Report Comments: See Note; NOTES: [facility] [address] [place] [address] OFFICE VISIT Date of Service: 11/26/19 MR#: [id number] Acct: [id number] Name: MILKA LANGFORD Rep #: [id number] : 1960 Provider: MONA Guidry Age/Sex: 59/M Location: [facility] [place] Status: Signed Intake Vital Signs11/26/19 BMI 30.5 Intake Visit Reasons: RIGHT SHOULDER Chief Complaint: BWC R Shoulder Allergies No Known Allergies Allergy (Verified 11/01/19 09:41) PFSH Social History (Updated 11/26/19 @ 13:38 by MONA Sánchez) Smoking Status: Never smoker HPI RIGHT SHOULDER: Details: Parts of this documentation were recorded by a scribe, this documentation accurately reflects the service provided and the decisions made by , MONA Sánchez 11/26/19 0758. MILKA LANGFORD is a 59 year old M here today for F/U on right shoulder. DOI: 09/14/2019. He had a steroid injection of his right shoulder 4 weeks ago which he states was not helpful for his pain. Continues top have right shoulder pain over the lateral side of his arm that radiating into his mid forearm. Denies numbness, tingling or other associated symptoms. States he has been attending PT once a week and he has had some improvement with ROM but is still lacking with reaching behind the back. Continues to have the shoulder pain. He has been working with a 5lb lifting restriction of right arm. ROS Musc Reports joint pain, Reports limited joint movement, Denies numbness, Reports stiffness, Denies tingling Skin/Breast Reports system reviewed and no additional complaints, except as docu Neuro No numbness, No tingling Ortho Exam Right Shoulder Skin/Wound: No ecchymosis, No erythema, No swelling Testing: Positive Hawkin's, Neer's, Speed's, TTP Biceps, AROM-External Rotation at side 0-60, empty can (There is still some weakness and discomfort) and Kingsbury; negative TTP AC Joint, Yergason's, AROM-Forward Elevation 0-180, Sulcus Sign or translation Internal Rotation: L5 SHOULDER: Patient inspection of the shoulder shows no acute abnormalities. There is no localized or generalized swelling and there is no ecchymosis/bruising, erythema, or other skin changes. Patient continues to have some posterior subacromial space tenderness as well as some lateral shoulder tenderness and biceps tenderness. Patient does have continued decreased range of motion. His forward elevation is approximately the same at about 160 degrees and his abduction is decreased at about 90 degrees actively today. I can passively get him to full forward elevation and almost full abduction. He is still limited with internal range of motion at the same time is slightly better than previous at approximately L5 may be L4. He does continue to have evidence of impingement signs. Assessment AND Plan Problems 1. Strain of right shoulder, subsequent encounter S42.222U Plan Patient presents for recheck of right shoulder strain. At this time he states that he has maybe seen a little improvement with his range of motion and his discomfort at the same time continues to have problems. He states that the injection may be helped a little bit but did not alleviate all his discomfort. Again he continues to show signs of rotator cuff impingement as well as biceps involvement and probable subscap involvement. At this time we discussed that he can continue with conservative treatment if he would like and again discussed the possibility of arthroscopy if we are at a standstill or there is any signs of worsening. At this time patient would like to continue with conservative physical therapy modalities. We will add a different anti-inflammatory which is once a day. I would like him to continue to ice the area. We will recheck patient in approximately 4 weeks to 6 weeks. He can notify sooner with any increased pain, swelling, worsening motion, or any other signs or symptoms. This note was generated with [employer] dictation software. It may contain incorrect words, spelling, and punctuation that were not noted in checking the note before signing. Medications New: Plan Detail Follow Up 4 Weeks Coding Level of Care Code Off vis,est,level 3 Diagnoses Strain of right shoulder, subsequent encounter S46.911D Encounter type: subsequent encounter 11/26/19 1338 <Electronically signed by Ramonita DUNN> Date Ramonita DUNN Cosigner Signature: Date (if applicable) CC: Renate Yun SOFTWARE CONTROLS ENGINEER Work Phone: Start: 11-02-2019 End: 11-02-2019 Orthopedic Visit Report Comments: See Note; NOTES: [facility] [address] [place] [id number] OFFICE VISIT Date of Service: 11/01/19 MR#: [id number] Acct: [id number] Name: MILKA LANGFORD Rep #: [id number] : 1960 Provider: MONA Guidry Age/Sex: 59/M Location: [facility] [place] Status: Signed Intake Intake Visit Reasons: RIGHT SHOULDER Is patient in pain?: Yes Allergies No Known Allergies Allergy (Verified 11/01/19 09:41) PFS Social History (Updated 11/02/19 @ 14:01 by MONA Sánchez) Smoking Status: Never smoker HPI RIGHT SHOULDER: Details: Parts of this documentation were recorded by a scribe, this documentation accurately reflects the service provided and the decisions made by me, MONA Sánchez 11/01/19 0937. MILKA LANGFORD is a 59 year old M here today for right shoulder pain. Patient notes that has pain over his lateral arm and over his entire shoulder. Patient notes that he has limited range of motion because of stiffness. He has difficulty sleeping due to his pain. He denies any injections but has an approval for an injection. He is working at this time with a 5 pound weight restriction. Denies numbness, tingling or other associated symptoms. Patient is taking tylenol for pain. ROS Musc Reports joint pain, Reports limited joint movement, Denies numbness, Reports stiffness, Denies tingling Skin/Breast Reports system reviewed and no additional complaints, except as docu Neuro Yes system reviewed and no additional complaints, except as docu, No numbness, No tingling Ortho Exam Right Shoulder Skin/Wound: No ecchymosis, No erythema, No swelling Testing: Positive Hawkin's, Neer's (minor), Speed's (minor discomfort - good strength), TTP Biceps, empty can and lift off; negative TTP AC Joint, Drop Arm, AROM-Forward Elevation 0-180 (160 ), AROM-External Rotation at side 0-60, Apprehension Test, Sulcus Sign, translation, Kingsbury or cross arm Internal Rotation: Buttock SHOULDER: Patient has no abnormalities on inspection of the right shoulder. He has no localized or generalized swelling and there is no ecchymosis/bruising, erythema, or other skin changes. Patient does have some tenderness on palpation of the posterior subacromial space as well as some on the lateral aspect and some minimal anterior shoulder pain. He does have some discomfort with Neer's impingement as well as some minor discomfort with speeds test. He does not have any evidence of translation or apprehension. He does have some decreased motion compared to the left most notably with abduction and internal rotation. His strength though against resistance is very good showing minimal decrease in strength compared to the left. He has some minor discomfort with empty can at the same time and strength is very good. Patient does have normal sensation throughout the extremity normal distal radial pulses. Office Procedures Kenalog 40 mg/mL suspension for injection (triamcinolone acetonide) 80 mg intra-articular ONCE Injections Yes Subacromial Injection Right Details: Obtained consent for injection. Under sterile conditions, injected the patients right subacromial joint with a 10cc cocktail of 8cc bupivacaine and 2cc kenalog. The patient tolerated the injection well without any noted complication. Patient should call our office if redness develops, pain worsens or if they have any concerns. Office Meds Kenalog Performing Provider: MONA Sánchez Administered by: MONA Sánchez on 11/01/19 11:11 Dose Route Admin Location Lot Number Expiration DateNDC Associate Professor Of Economics 80 mg intra-articularright [id number] 11/11/19 4699-4873-44 [facility] Assessment AND Plan Problems 1. Strain of right shoulder, initial encounter S46.911A Plan Patient presents to the office for right shoulder pain/strain. This was an injury he suffered at work when he slipped and reached out and got his arm in an awkward position. Patient did have x-rays as well as an MRI showing small undersurface tear as well as some labral pathology. At this time his physical exam findings are suggestive of some rotator cuff impingement as well as possible biceps involvement. He does not have evident translation or sulcus to indicate major labral damage and he has a negative Kingsbury's which is good. We did review patient's MRI impression as well as images today. At this time patient is wanting to try to get back to work as soon as possible and states that he really needs to be able to work on December 11. Patient does have some decreased range of motion today at the same time his strength against resistance is very good. After discussions of treatment options which include doing nothing, injections, physical therapy, and surgical intervention, patient would like to proceed with some conservative care. Questions regarding injection were answered and consent was signed in office today. Patient was then given a subacromial injection under normal sterile fashion into the right shoulder. Patient was also given a prescription for physical therapy for them to start working on range of motion as well as strengthening of the rotator cuff. If patient does not have relief with injection and physical therapy then we discussed the possibility of arthroscopy. His concern is his inability to work if there is a surgical repair required which I discussed in explained is hard to know the recovery time until you actually are evaluate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 HAND Renate Yun [facility] Work Phone: Start: 12-07-2016 End: 12-07-2016 Emergency Department Summary Comments: See Note; NOTES: [facility] Medical Records Department [address] [place] [id number] Emergency Department Summary MR#: [id number] Acct: [id number] Name: MILKA LANGFORD Rep #: [id number] : 1960 56 From: Sandra Lozano MD PCP: Renate Yun Status: DEP ER DATE OF SERVICE: 12/06/2016 HISTORY OF PRESENT ILLNESS: The patient presents for pain and foreign body sensation to the right eye. The patient states he was grinding metal earlier today and was wearing eye protection, but he felt he got a metal piece in his eye. He has had irritation and foreign body sensation. He does not wear contacts. He uses reading glasses as needed. No visual changes. No medical history. The patient does not have an eye doctor. PHYSICAL EXAMINATION: VITAL SIGNS: Reviewed. The patient is afebrile, hemodynamically stable. HEENT: Examination of the eyes shows normal inspection of the periorbital region. Eyelids are unremarkable. Right eyelid everted and no foreign body noted. Conjunctivae are without injection. There is mild erythema. Extraocular movement is normal without pain or palsy. No nystagmus. Pupils are equal, round, reactive to light. Extraocular movements are intact. Slit lamp exam shows a small metal piece on the medial right cornea. Fluorescein shows no corneal abrasions other than in the vicinity of the piece of metal. Remainder of exam is unremarkable. EMERGENCY DEPARTMENT COURSE: The piece of metal was initially removed with a cotton swab. There was a fragment remaining and thus a needle was used to remove the remaining piece. There was a very small residual piece of metal deep in the cavity where the foreign body was, 2 attempts were made to remove it with the tip of the needle, but because it was very small and deep in the cavity, did not want to attempt further at risk of injuring the eye. Tetracaine had been instilled prior to the procedure. The patient was given erythromycin eye ointment to use in the eye to protect from infection. He was given followup with an wireless development manager and is instructed to call tomorrow to make a followup appointment for reevaluation and also to evaluate this possible very small retained piece of metal in the foreign body cavity. The patient was discharged with improvement in his pain. He will use gttk-wqc-tgbhfnk pain medication as needed and use the erythromycin ophthalmic ointment as directed. IMPRESSION: Metallic foreign body in right eye with associated corneal abrasion. SANDRA LOZANO MD T: NTS JOB: [id number] 12/07/16 1297 <Electronically signed by Sandra Lozano MD> Date Sandra Lozano MD Cosigner Signature (If Indicated): Date CC: Renate Yun Date Dictated: 12/06/162054 Date Transcribed: 12/06/162054 First Aid Nurse: Signed Renate Yun FAY Work Phone: Start: 12-07-2016 End: 12-07-2016 Discharge Instruction Comments: See Note; NOTES: [facility] Medical Records Department [address] [place] [address] Discharge Instruction 12/06/16 1632 MR#: [id number] Acct: [id number] Name: ALNGFORDMILKA Diego Rep #: [id number] : 1960 56 From: Sandra Lozano MD PCP: Renate Yun Status: DEP ER ED Disposition - Plan for ED Patient: Disposition: Home or Assisted Living Chief Complaint: Eye Problem Instructions: ED Eye Injury Corneal Abrasion Referrals: Renate Yun [Primary Care Provider] - As Needed Joni Roberts MD [STAFF PHYSICIAN] - As soon as possible (metal fragment to right cornea with corneal abrasion s/p removal, concern for small remaining fragment) Additional Instructions: Please use the antibiotic ointment as directed. Follow up with the eye doctor as soon as possible. Call today or tomorrow to schedule an appointment. What to do if you have Problems For any increased pain, shortness of breath, bleeding, nausea or vomiting, chest pain, or any unexpected problems, contact your Primary Care Provider. Call [facility] ([phone]) or report to the closest Emergency Room. Call 911 if necessary. 12/07/16 1732 <Electronically signed by Sandra Lozano MD> Date Sandra Lozano MD Cosigner Signature (If Indicated): Date CC: Renate Adilenealejandra Dewitt Maricarmenkeniaalejandra APONTE Work Phone: Start: 02-11-2016 End: 02-11-2016 Ecg routine ecg w/least 12 lds w/i&r [MEASUREMENTS ANALYSIS] Date of Test: 02/11/2016 15:28:04; Heart Rate: 92; CT Interval: 142; QRS: 108; QT Interval: 330; Corrected QT Interval (QTc): 386; P Wave [place]: 36; QRS Wave [place]: -27; T Wave [place]: 36; Blood Pressure: 132/82 [ECG DIAGNOSTIC STATEMENTS] Date of Test: 02/11/2016 15:28:04; Summary: Sinus Rhythm Voltage criteria for LVH (R(I)+S(III) exceeds 2.50 mV) -Voltage criteria w/o ST/T abnormality may be normal. BORDERLINE Renate Yun SOFTWARE CONTROLS ENGINEER Work Phone: Start: 02-13-2015 End: 02-13-2015 History and Physical Exam Comments: See Note; NOTES: [facility] Medical Records Department [address] [place] [address] History and Physical 02/13/15 0434 MR#: [id number] Acct: [id number] Name: MILKA LANGFORD Rep #: [id number] : 1960 54 From: Luis A Brennan MD PCP: Crow Saldana DO Status: REG ER Y Location: ED Problem List (1) Small bowel obstruction Status: Acute (2) GERD (gastroesophageal reflux disease) Status: Chronic (3) Hyperlipidemia Status: Chronic (4) Hypertension Status: Chronic History of Present Illness Date of Admission: 02/13/15 Chief Complaint: Abdominal pain, nausea and vomiting, constipation. The patient is a 54 year old M with past medical history as mentioned above presented to emergency room because of constipation, abdominal pain with nausea and vomiting of 2 days' duration. 2 days ago, he had surgery on the fingers of his left hand and he was prescribed Percocet for pain. He uses Percocet when necessary and he started complaining of constipation of 2 days duration. By the end of her stay, he started complaining of lower abdominal pain, sharp pain, 8 out of 10 in severity, not radiating, associated with nausea and vomiting and without aggravating or relieving factors. He tried to hydrate himself but he wasn't able to have any bowel movement. He tried to use enema and he was able to have very small bowel movement. He continued to have abdominal pain and was not able to pass flatus. He never had abdominal surgeries. In the emergency room, he was found to have stable vital signs. His routine blood work was remarkable for mild leukocytosis. CT scan abdomen and pelvis showed small bowel obstruction. NG tube will be inserted in the emergency room and maintained. He is being admitted for small bowel obstruction. Past Medical History Past Medical History (Chronic Problems): Chronic Problems GERD (gastroesophageal reflux disease) (Chronic) Hyperlipidemia (Chronic) Hypertension (Chronic) Allergies No Known Allergies Allergy (Verified 02/12/15 21:50) Surgical History: noncontributory Psychiatric History: No pertinent psych hx Lives: Spouse/ Significant Other Smoking Status: Never smoker Alcohol: None Drugs: None - *Family History Maternal History Items: No pertinent history Paternal History Items: No pertinent history Review of Systems Constitutional: Denies: Anorexia, Chills, Fever, Weakness Eyes: Denies: Blurred vision, Double vision, Drainage, Redness HEENT: Denies: Difficulty Hearing, Eye Pain, Nasal Congestion, Sore Throat Cardiovascular: Denies: Chest Pain, Claudication, Chest Tightness, Edema, Palpitations, Syncope Respiratory: Denies: Cough, Shortness of Breath, Sputum production, Wheezing Gastrointestinal: Reports: Abdominal Pain, Constipation, Nausea, Vomiting. Denies: Diarrhea Genitourinary: Denies: Dysuria, Frequency, Hematuria Musculoskeletal: Denies: Arm Pain, Back Pain, Foot Pain Skin: Denies: Dryness, Rash Neurological: Denies: Balance problems, Blurred vision, Double vision, Change in Speech, Slurred speech, Focal weakness, Headaches, Incoordination Psychiatric: Denies: Anxiety, Depression Endocrine: Denies: Change in Body Habitus, Polydipsia, Polyuria VTE Information - Inpt Only VTE Present on Admission: No VTE Mechan Device Prophylaxis: SCD's VTE Pharm Prophylaxis ordered?: No - Physical Exam General: Alert, Oriented x3, Cooperative, No apparent distress HEENT: Atraumatic, PERRLA, EOMI Oral: Moist Mucosa, No Gingival or Mucosal Lesions/ Ulcerations Neck: Supple, No JVD, Negative Carotid Bruits, Thyroid Normal Size and Texture Lungs: Clear to auscultation, Normal air movement, No rhonchi, No wheeze, Diminished Cardiovascular: Regular rate, Regular Rhythm, Normal S1, Normal S2 Abdomen: Soft, Non-Distended, No Hepato-splenomegaly, Hypoactive Bowel Sounds, Tender, - - No guarding, no rigidity. Extremities: No clubbing, No cyanosis, No edema Skin: No rashes, No breakdown Neurological: Neuro grossly intact Psych/Mental Status: Normal Affect, Appropriate Vital Signs Temp Pulse Resp BP Pulse Ox 97.9 F 71 16 143/87 94 02/12/15 21:48 02/13/15 04:32 02/13/15 04:32 02/13/15 04:07 02/13/15 04:07 Oxygen Delivery Method Room Air Weight: 242 lb 1.081 oz Body Mass Index (BMI) 39.0 Laboratory Tests Past 24 Hrs 02/13/15 01:25 WBC 14.7 H RBC 5.68 Hgb 17.1 H Hct 50.8 MCV 89.4 MCH 30.1 MCHC 33.7 RDW 13.8 RDW Differential 45.1 H Plt Count 202 MPV 11.5 Immature Gran % (Auto) 0.100 Neut % (Auto) 82.1 H Lymph % (Auto) 9.1 L [place] % (Auto) 8.3 Eos % (Auto) 0.3 Baso % (Auto) 0.1 Absolute Neuts (auto) 12.0 H Absolute Lymphs (auto) 1.33 Total Counted Not Reportable Sodium 137 Potassium 3.9 Chloride 102 Carbon Dioxide 29.0 Anion Gap 6 BUN 15 Creatinine 1.0 Estim Creat Clear Calc 77.98 Est GFR (MDRD) Af Amer 101 Est GFR (MDRD) Non-Af 83 BUN/Creatinine Ratio 15.0 Glucose 104 Calcium 8.9 Total Bilirubin 0.50 Direct Bilirubin 0.21 AST 20 ALT 49 Alkaline Phosphatase 73 Total Protein 8.3 H Albumin 3.6 Globulin 4.7 H Lipase 140 Assessment/Plan Active and Suspected Problems Small bowel obstruction (Acute) This is a 54 years old male patient admitted because of constipation, abdominal pain with nausea and vomiting and was found to have small bowel obstruction. #1 small bowel obstruction: Likely because of narcotic medication. Patient denied any history of abdominal surgeries. [facility] nothing per mouth except for sips of water, and set and maintain NG tube with low suction, electrolyte replacement as needed, IV fluids for hydration, general surgery consult. #2 leukocytosis: Likely reactive because of small bowel obstruction. Patient denied any symptoms suggestive of infection. Will monitor CBC. #3 hypertension: Blood pressure stable, continue home medications. #4 hyperlipidemia: Continue statins. #5 GERD: will start IV Pepcid twice a day. #6 DVT prophylaxis: SCDs, low risk patient. This note was generated with [employer] software. It may contain incorrect words, spelling, and punctuation that were not noted in checking the note before signing. 02/13/15 0441 <Electronically signed by Luis A Brennan MD> Date Luis A Brennan MD CC: Crow Saldana DO; Luis A Brennan Signed Renate Yun [facility] Work Phone: Start: 02-13-2015 End: 02-13-2015 Abdomen/Pelvis WITH Contrast Comments: See Note; NOTES: [facility] Services [address] [place] [id number] CAT Scan Report MR#: [id number] Acct: [id number] Name: MILKA LANGFORD Rep #: [id number] : 1960 54 From: Cristobal Valle DO PCP: Crow Saldana DO Status: REG ER Study: Abdomen/Pelvis WITH Contrast Date of Exam: 02/13/15 Exam# [id number] Ordering Dr: Walter Melo MD STUDY: CT ABDOMEN AND PELVIS WITH CONTRAST REASON FOR EXAM: Male, 54 years old. Abdominal pain, abnormal x-ray RADIATION DOSAGE (If Supplied By Facility): CTDIvol = ( 23.39 ) mGy, DLP = ( 2289.87 ) mGycm TECHNIQUE: Transaxial images were obtained from the dome of the diaphragm to the symphysis pubis with oral contrast. 100ml ml of Isovue 300 contrast was administered. Sagittal and coronal images were reconstructed. Delayed images were performed. COMPARISON: Plain abdominal films of 02/12/15 FINDINGS: There is patchy left basilar airspace disease, suggesting atelectasis. The visualized portions of the heart are within normal limits. There is decreased attenuation of the liver consistent with steatosis. Normal gallbladder and extrahepatic biliary system. Normal spleen. Normal pancreas. Normal bilateral adrenal glands. Normal right kidney. Parapelvic cysts are noted on the left. The stomach is opacified with contrast. There are multiple dilated proximal small bowel loops. A transition zone is seen in the mid abdomen, axial image 51 and coronal image 61. Decompressed bowel is seen distal to this region. Normal colon. The appendix is visualized and appears normal. Mild atherosclerotic calcification is seen. Normal inferior vena cava. Normal retroperitoneum. Normal urinary bladder. There is a right-sided inguinal hernia containing adipose tissue. Degenerative changes are seen within the spine. There is some endplate irregularity and wedging of lower thoracic vertebral bodies, which may represent sequela from previous Scheuermann's disease. IMPRESSION: Small bowel obstruction. Left basilar atelectasis. Additional findings, as detailed above. N.B. : The above information has been verbally conveyed by Cristobal Valle DO to Dr. Fenton, Referring Physician, on 02/13/2015 03:59:29 (ET). Electronically Signed: Cristobal Valle DO at 3:55 EDT Tel , Service support [phone], N.B. : The above information has been verbally conveyed by Cristobal Valle DO to Dr. Fenton, Referring Physician, on 02/13/2015 03:59:29 (ET). CC: Crow Saldana DO; Walter Melo MD First Aid Nurse: Signed Renate Yun [facility] Work Phone: Left middle finger Dulce Maria Sl arb LABORATORY TECHNICAL SPECIALIST Comment on above: 2019 Left middle finger Maxi Dao LABORATORY TECHNICAL SPECIALIST Comment on above: 2019 Left middle finger Dulce Maria Sl arb LABORATORY TECHNICAL SPECIALIST Comment on above: 2019 Left middle finger Aminata blake MA Comment on above: 2019 Left middle finger Dulce Maria Sl arb LABORATORY TECHNICAL SPECIALIST Comment on above: 2019 Pin inserted Left Middle Finger Dulce Maria Melendez LABORATORY TECHNICAL SPECIALIST Comment on above: 2013; Second on e done a while later Pin inserted Left Middle Finger Maxi Hameed LPN Comment on above: 2013; Second on e done a while later Pin inserted Left Middle Finger Dulce Maria Slarb LABORATORY TECHNICAL SPECIALIST Comment on above: 2013; Second on e done a while later Pin inserted Left Middle Finger Aminata Santoro MA Comment on above: 2013; Second on e done a while later Pin inserted Left Middle Finger Dulce Maria Slarb LABORATORY TECHNICAL SPECIALIST Comment on above: 2013; Second on e done a while later Plan of Treatment Date Care Activity Detail Author Start: 12-10-2022 Procedure Education Eprescribe d prescriptions (G8553) [facility]; [facility] Work Phone: Start: 10-08-2022 Comprehensive metabo lic panel METABOLIC PANEL, COMPREHENSIVE (17538) [facility]; [facility] Work Phone: Comment on above: prior to ov Start: 10-08-2022 Lipid panel LIPID PANEL (82911) [facility]; [facility] Work Phone: Comment on above: prior next ov Start: 10-08-2022 Patient Education Compr [facility]; [facility] Work Phone: Start: 10-08-2022 Procedure Education Eprescribe d prescriptions (G8553) [facility]; [facility] Work Phone: Start: 10-08-2022 Provider Instruction s for Treatment Follow up in 1 year or as needed [facility]; [facility] Work Phone: Start: 04-02-2022 Procedure Education Eprescribe d prescriptions (G8553) [facility]; [facility] Work Phone: Start: 04-02-2022 Provider Instruction s for Treatment Follow up in 6 months [facility]; [facility] Work Phone: Start: 11-13-2021 Procedure Education Eprescribe d prescriptions (G8553) [facility]; [facility] Work Phone: Start: 11-13-2021 Provider Instruction s for Treatment Follow up in 3 months [facility]; [facility] Work Phone: Start: 11-13-2021 Hemoglobin glycosyla bethany a1c HGB A1C (05590) [facility]; [facility] Work Phone: Comment on above: February 2022 Start: 11-13-2021 Lipid panel LIPID PANEL (25617) [facility]; [facility] Work Phone: Comment on above: fasting February 2022 Start: 11-13-2021 Comprehensive metabo lic panel Metabolic Panel, Comprehensive (87390) [facility]; [facility] Work Phone: Comment on above: February 2022 Start: 09-22-2021 Procedure Education Eprescribe d prescriptions (G8553) [facility]; [facility] Work Phone: Start: 09-22-2021 Provider Instruction s for Treatment Follow up in 2 weeks front desk representative to call for follow [facility]; [facility] Work Phone: Start: 09-22-2021 Assay of prostate specific antigen total PSA (PROSTATE SPECIFIC ANTIGEN) (V76.44) [facility]; [facility] Work Phone: Comment on above: Sep 24 2021 Start: 09-22-2021 Blood count complete automated CBC & PLATELETS (AUTO) (18745) [facility]; [facility] Work Phone: Comment on above: Sep 24, 2021 Sep 24 2021 Start: 09-22-2021 Assay of ferritin Ferritin (87521) [facility] Work Phone: Comment on above: Sep 24 2021 Start: 09-22-2021 Assay of iron Iron (06298) [facility]; [facility] Work Phone: Comment on above: Sep 24, 2021 Start: 09-22-2021 Lipid panel Lipid Panel (01900) [facility]; [facility] Work Phone: Comment on above: Sep 24, 2021 Start: 09-22-2021 Comprehensive metabo lic panel Metabolic Panel, Comprehensive (62783) [facility]; [facility] Work Phone: Comment on above: Sep 24, 2021 Start: 08-24-2016 Procedure Education Eprescribe d prescriptions (G8553) [facility]; [facility] Work Phone: Start: 08-24-2016 Provider Instruction s for Treatment [facility]; [facility] Work Phone: Start: 08-24-2016 Blood occult fecal h gb deter ia qual feces 1-3 FECAL OCCULT- Tubes sent home (45762) [facility]; [facility] Work Phone: Start: 08-24-2016 Ova&parasites direct smears concentration & id OVA AND PARASITES (29531) [facility]; [facility] Work Phone: Start: 06-24-2016 Procedure Education Eprescribe d prescriptions (G8553) [facility]; [facility] Work Phone: Start: 05-18-2016 Provider Instruction s for Treatment Reviewed Diagnostic Tests [facility]; [facility] Work Phone: Start: 04-20-2016 Procedure Education Eprescribe d prescriptions (G8553) [facility]; [facility] Work Phone: Start: 02-11-2016 Procedure Education Eprescribe d prescriptions (G8553) [facility]; [facility] Work Phone: Start: 02-11-2016 Provider Instruction s for Treatment 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 3-4 days before that apt that are ordered today fasting [facility]; [facility] Work Phone: Start: 05-08-2014 Patient Education Compr [facility]; [facility] Work Phone: Start: 05-08-2014 Provider Instruction s for Treatment [facility]; [facility] Work Phone: Start: 05-08-2014 Dna antibody [place]/double stranded DNA ANTIBODY-NATV/DBL ST (32567) test code 238990 [facility]; [facility] Work Phone: Start: 05-08-2014 Extractable nuclear antigen antibody any method [facility]; [facility] Work Phone: Start: 05-08-2014 Rheumatoid factor quantitative RHEUMATOID FACTOR-QUANT (79319) test code 619791 [facility]; [facility] Work Phone: Start: 04-22-2014 Provider Instruction s for Treatment Follow up in 1 week not on Tue or Tuesday for Gen Med [facility]; [facility] Work Phone: Start: 04-22-2014 Urine albumin quantitative MICROALBUMIN URINE QUANT (39283) [facility]; [facility] Work Phone: Start: 03-20-2013 Provider Instruction s for Treatment [facility]; [facility] Work Phone: Start: 09-22-2012 Provider Instruction s for Treatment [facility]; [facility] Work Phone: Start: 09-13-2012 Provider Instruction s for Treatment [facility]; [facility] Work Phone: Start: 09-13-2012 Assay of troponin quantitative Troponin I (75807) [facility]; [facility] Work Phone: Start: 09-13-2012 Creatine kinase mb fraction only CPK MB FRACTION (44348) [facility]; [facility] Work Phone: Start: 09-13-2012 Creatine kinase total CREATINE KINASE TOTAL (21408) [facility]; [facility] Work Phone: Start: 09-13-2012 Blood count manual c ell count each CBC with manual diff (29227) [facility]; [facility] Work Phone: Start: 09-13-2012 Assay of amylase AMYLASE (44174) [facility]; [facility] Work Phone: Start: 09-13-2012 Assay of lipase LIPASE (50446) [facility]; [facility] Work Phone: Start: 09-13-2012 Blood occult peroxid ase actv qual feces 1 deter OCCULT BLOOD FECES SCREEN (98169) [facility]; [facility] Work Phone: Start: 09-13-2012 Cul bact stool aerob ic isol salmonella&shigell CLARISSA CULTURE-STOOL (12177) [facility]; [facility] Work Phone: Start: 09-13-2012 Culture bacterial an y source anaerobic iso&id C-DIFFICILE, STOOL (20247) [facility]; [facility] Work Phone: Start: 09-13-2012 Leukocyte assmt feca l qual/semiquantitative LEUKOCYTE COUNT, FECAL (99154) [facility]; [facility] Work Phone: Start: 09-13-2012 Ova&parasites direct smears concentration & id OVA & PARASITE DIR SMEAR (75702) [facility]; [facility] Work Phone: Start: 05-25-2012 Patient Education Flu Shots (I nfluenza Vaccine): immunization [facility]; [facility] Work Phone: Start: 09-23-2011 Provider Instruction s for Treatment *fatigue education [facility]; [facility] Work Phone: Start: 04-16-2011 Assay of iron IRON (41106) [facility]; [facility] Work Phone: Start: 09-09-2010 Provider Instruction s for Treatment *Antibiotic Usage Education - Male [facility]; [facility] Work Phone: Start: 04-24-2010 Provider Instruction s for Treatment FOLLOW UP IN [address] Saldana for GEn med [facility]; [facility] Work Phone: Start: 09-11-2009 Lipoprotein blood qu an numbers & subclasses LIPOPROTEIN, BLD, BY NMR (83520) [facility]; [facility] Work Phone: Comment on above: draw in 3 months Start: 09-11-2009 Lipid panel Lipid Panel (22394) [facility]; [facility] Work Phone: Comment on above: draw in November 19 fas ting Start: 09-08-2009 Provider Instruction s for Treatment [facility]; [facility] Work Phone: Start: 06-19-2009 Provider Instruction s for Treatment [facility]; [facility] Work Phone: Start: 06-19-2009 Assay of iron Iron (68458) [facility]; [facility] Work Phone: Start: 06-19-2009 Assay of ferritin Fer[facility]in (46163) [facility] Work Phone: Start: 06-19-2009 Lipid panel Lipid Panel (02733) [facility]; [facility] Work Phone: Comment on above: draw in Aug Start: 04-08-2009 Provider Instruction s for Treatment [facility]; [facility] Work Phone: Start: 04-08-2009 Iron binding capacity Iron Bin ding Capacity (TIBC) (48949) [facility]; [facility] Work Phone: Start: 04-08-2009 Lipid panel Lipid Panel (96296) [facility]; [facility] Work Phone: Comment on above: June 20 Fasting Start: 03-26-2009 Cyanocobalamin vitam in b-12 Vitamin B-12 (cyanocobalamin) (17927) [facility]; [facility] Work Phone: Start: 03-26-2009 Iron binding capacity Iron Bin ding Capacity (TIBC) (65150) [facility]; [facility] Work Phone: Start: 03-26-2009 Assay of iron Iron (81118) [facility]; [facility] Work Phone: Start: 03-26-2009 Assay of ferritin Ferritin (79260) [facility]; [facility] Work Phone: Start: 03-26-2009 Assay of folic acid serum Folic Acid Serum (52200) [facility]; [facility] Work Phone: Start: 03-26-2009 Lipid panel Lipid Panel (08068) [facility]; [facility] Work Phone: Comment on above: To be done week of ep [facility]; [facility] Work Phone: [facility]; [facility] Work Phone: [facility]; [facility] Work Phone: [facility] Work Phone: [facility] Work Phone: [facility] Work Phone: [facility] Work Phone: [facility] Work Phone: [facility]; [facility] Work Phone: [facility]; [facility] Work Phone: Payers Date Payer Category Payer Self-pay 1960 Unknown [id number] 1960 Unknown [id number] 1960 Unknown [id number] Unknown [id number] Unknown [id number] Unknown [id number] Worker's Compensation [id number] Social History Date Type Detail Facility Caffeine Use Caffeine Use [facility]; [facility] Work Phone: Comment on above: occ Inactive 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 Dogx2, Catx2, Horsex 5, Farm animal Tobacco use: Tobacco use: [facility]; [facility] Work Phone: Instructions Note Date & Type Note Facility Instructions Name Patient Instructions Indication:BMI 33.0-33.9,adult Start: 2 Instruction Type:Provider Instructions for Treatment How to Access Health Information Online using Patient Portal and [employer] Apps Indication:BMI 33.0-33.9,adult Start: 2 Instruction Type:Patient Education How to access health information online Indication:Hypertension, benign Start: Instruction Type:Patient Education How to access health information online - Detail Indication:Hypertension, benign Start: Instruction Type:Patient Education Patient Instructions Indication:Hypertension, benign Start: Instruction Type:Provider Instructions for Treatment How to access health information online Indication:Bronchitis Start: Instruction Type:Patient Education How to access health information online - Detail Indication:Bronchitis Start: Instruction Type:Patient Education Patient Instructions Indication:Bronchitis Start: Instruction Type:Provider Instructions for Treatment Patient Instructions Indication:Hypertriglyceride yarelis Start:18-May-2016 Instruction Type:Provider Instructions for Treatment How to access health information online Indication:Physical examination of employee Start:20-Apr-2016 Instruction Type:Patient Education How to access health information online - Detail Indication:Physical examination of employee Start:20-Apr-2016 Instruction Type:Patient Education Patient Instructions Indication:Physical examination of employee Start:20-Apr-2016 Instruction Type:Provider Instructions for Treatment Patient Instructions Indication:Hypercholesterole yarelis Start:11-Feb-2016 Instruction Type:Provider Instructions for Treatment How to access health information online Indication:Hypercholesterole yarelis Start:11-Feb-2016 Instruction Type:Patient Education How to access health information online - Detail Indication:Hypercholesterole yarelis Start:11-Feb-2016 Instruction Type:Patient Education Patient Instructions Indication:BMI 38.0-38.9,adult Start:11-Feb-2016 Instruction Type:Provider Instructions for Treatment Patient Instructions Indication:General medical examination Start: 2 Instruction Type:Provider Instructions for Treatment [facility]; [facility] Work Phone: Instructions Note Date & Type Note Facility Instructions Name Patient Instructions Indication:BMI 33.0-33.9,adult Start: 2 Instruction Type:Provider Instructions for Treatment How to Access Health Information Online using Patient Portal and [employer] Apps Indication:BMI 33.0-33.9,adult Start: 2 Instruction Type:Patient Education How to access health information online Indication:Hypertension, benign Start: 6 Instruction Type:Patient Education How to access health information online - Detail Indication:Hypertension, benign Start: 6 Instruction Type:Patient Education Patient Instructions Indication:Hypertension, benign Start: Instruction Type:Provider Instructions for Treatment How to access health information online Indication:Bronchitis Start: Instruction Type:Patient Education How to access health information online - Detail Indication:Bronchitis Start: Instruction Type:Patient Education Patient Instructions Indication:Bronchitis Start: Instruction Type:Provider Instructions for Treatment Patient Instructions Indication:Hypertriglyceride yarelis Start:18-May-2016 Instruction Type:Provider Instructions for Treatment How to access health information online Indication:Physical examination of employee Start:20-Apr-2016 Instruction Type:Patient Education How to access health information online - Detail Indication:Physical examination of employee Start:20-Apr-2016 Instruction Type:Patient Education Patient Instructions Indication:Physical examination of employee Start:20-Apr-2016 Instruction Type:Provider Instructions for Treatment Patient Instructions Indication:Hypercholesterole yarelis Start:11-Feb-2016 Instruction Type:Provider Instructions for Treatment How to access health information online Indication:Hypercholesterole yarelis Start:11-Feb-2016 Instruction Type:Patient Education How to access health information online - Detail Indication:Hypercholesterole yarelis Start:11-Feb-2016 Instruction Type:Patient Education Patient Instructions Indication:BMI 38.0-38.9,adult Start:11-Feb-2016 Instruction Type:Provider Instructions for Treatment Patient Instructions Indication:General medical examination Start: Instruction Type:Provider Instructions for Treatment [facility]; [facility] Work Phone: Instructions Note Date & Type Note Facility Instructions Name Patient Instructions Indication:BMI 36.0-36.9,adult Start:13-Nov-2021 Instruction Type:Provider Instructions for Treatment How to Access Health Information Online using Patient Portal and [employer] Apps Indication:BMI 36.0-36.9,adult Start:13-Nov-2021 Instruction Type:Patient Education Patient Instructions Indication:BMI 33.0-33.9,adult Start: 2 Instruction Type:Provider Instructions for Treatment How to Access Health Information Online using Patient Portal and [employer] Apps Indication:BMI 33.0-33.9,adult Start: 2 Instruction Type:Patient Education How to access health information online Indication:Hypertension, benign Start: 6 Instruction Type:Patient Education How to access health information online - Detail Indication:Hypertension, benign Start: Instruction Type:Patient Education Patient Instructions Indication:Hypertension, benign Start: Instruction Type:Provider Instructions for Treatment How to access health information online Indication:Bronchitis Start: Instruction Type:Patient Education How to access health information online - Detail Indication:Bronchitis Start: Instruction Type:Patient Education Patient Instructions Indication:Bronchitis Start: Instruction Type:Provider Instructions for Treatment Patient Instructions Indication:Hypertriglyceride yarelis Start:18-May-2016 Instruction Type:Provider Instructions for Treatment How to access health information online Indication:Physical examination of employee Start:20-Apr-2016 Instruction Type:Patient Education How to access health information online - Detail Indication:Physical examination of employee Start:20-Apr-2016 Instruction Type:Patient Education Patient Instructions Indication:Physical examination of employee Start:20-Apr-2016 Instruction Type:Provider Instructions for Treatment Patient Instructions Indication:Hypercholesterole yarelis Start:11-Feb-2016 Instruction Type:Provider Instructions for Treatment How to access health information online Indication:Hypercholesterole yarelis Start:11-Feb-2016 Instruction Type:Patient Education How to access health information online - Detail Indication:Hypercholesterole yarelis Start:11-Feb-2016 Instruction Type:Patient Education Patient Instructions Indication:BMI 38.0-38.9,adult Start:11-Feb-2016 Instruction Type:Provider Instructions for Treatment Patient Instructions Indication:General medical examination Start: Instruction Type:Provider Instructions for Treatment [facility] Work Phone: Instructions Note Date & Type Note Facility Instructions Name Patient Instructions Indication:BMI 36.0-36.9,adult Start:13-Nov-2021 Instruction Type:Provider Instructions for Treatment How to Access Health Information Online using Patient Portal and [employer] Apps Indication:BMI 36.0-36.9,adult Start:13-Nov-2021 Instruction Type:Patient Education Patient Instructions Indication:BMI 33.0-33.9,adult Start: 2 Instruction Type:Provider Instructions for Treatment How to Access Health Information Online using Patient Portal and [employer] Apps Indication:BMI 33.0-33.9,adult Start: 2 Instruction Type:Patient Education How to access health information online Indication:Hypertension, benign Start: Instruction Type:Patient Education How to access health information online - Detail Indication:Hypertension, benign Start: Instruction Type:Patient Education Patient Instructions Indication:Hypertension, benign Start: Instruction Type:Provider Instructions for Treatment How to access health information online Indication:Bronchitis Start: Instruction Type:Patient Education How to access health information online - Detail Indication:Bronchitis Start: Instruction Type:Patient Education Patient Instructions Indication:Bronchitis Start: Instruction Type:Provider Instructions for Treatment Patient Instructions Indication:Hypertriglyceride yarelis Start:18-May-2016 Instruction Type:Provider Instructions for Treatment How to access health information online Indication:Physical examination of employee Start:20-Apr-2016 Instruction Type:Patient Education How to access health information online - Detail Indication:Physical examination of employee Start:20-Apr-2016 Instruction Type:Patient Education Patient Instructions Indication:Physical examination of employee Start:20-Apr-2016 Instruction Type:Provider Instructions for Treatment Patient Instructions Indication:Hypercholesterole yarelis Start:11-Feb-2016 Instruction Type:Provider Instructions for Treatment How to access health information online Indication:Hypercholesterole yarelis Start:11-Feb-2016 Instruction Type:Patient Education How to access health information online - Detail Indication:Hypercholesterole yarelis Start:11-Feb-2016 Instruction Type:Patient Education Patient Instructions Indication:BMI 38.0-38.9,adult Start:11-Feb-2016 Instruction Type:Provider Instructions for Treatment Patient Instructions Indication:General medical examination Start: 2 Instruction Type:Provider Instructions for Treatment [facility] Work Phone: Instructions Note Date & Type Note Facility Instructions Name Patient Instructions Indication:BMI 36.0-36.9,adult Start:13-Nov-2021 Instruction Type:Provider Instructions for Treatment How to Access Health Information Online using Patient Portal and [employer] Apps Indication:BMI 36.0-36.9,adult Start:13-Nov-2021 Instruction Type:Patient Education Patient Instructions Indication:BMI 33.0-33.9,adult Start: 2 Instruction Type:Provider Instructions for Treatment How to Access Health Information Online using Patient Portal and [employer] Apps Indication:BMI 33.0-33.9,adult Start: 2 Instruction Type:Patient Education How to access health information online Indication:Hypertension, benign Start: Instruction Type:Patient Education How to access health information online - Detail Indication:Hypertension, benign Start: Instruction Type:Patient Education Patient Instructions Indication:Hypertension, benign Start: Instruction Type:Provider Instructions for Treatment How to access health information online Indication:Bronchitis Start: Instruction Type:Patient Education How to access health information online - Detail Indication:Bronchitis Start: Instruction Type:Patient Education Patient Instructions Indication:Bronchitis Start: Instruction Type:Provider Instructions for Treatment Patient Instructions Indication:Hypertriglyceride yarelis Start:18-May-2016 Instruction Type:Provider Instructions for Treatment How to access health information online Indication:Physical examination of employee Start:20-Apr-2016 Instruction Type:Patient Education How to access health information online - Detail Indication:Physical examination of employee Start:20-Apr-2016 Instruction Type:Patient Education Patient Instructions Indication:Physical examination of employee Start:20-Apr-2016 Instruction Type:Provider Instructions for Treatment Patient Instructions Indication:Hypercholesterole yarelis Start:11-Feb-2016 Instruction Type:Provider Instructions for Treatment How to access health information online Indication:Hypercholesterole yarelis Start:11-Feb-2016 Instruction Type:Patient Education How to access health information online - Detail Indication:Hypercholesterole yarelis Start:11-Feb-2016 Instruction Type:Patient Education Patient Instructions Indication:BMI 38.0-38.9,adult Start:11-Feb-2016 Instruction Type:Provider Instructions for Treatment Patient Instructions Indication:General medical examination Start: 2 Instruction Type:Provider Instructions for Treatment [facility] Work Phone: Instructions Note Date & Type Note Facility Instructions Name How to Access Health Information Online using Patient Portal and [employer] Apps Indication:Impaired fasting glucose Start: 2 Instruction Type:Patient Education Patient Instructions Indication:Impaired fasting glucose Start: 2 Instruction Type:Provider Instructions for Treatment Patient Instructions Indication:BMI 36.0-36.9,adult Start:13-Nov-2021 Instruction Type:Provider Instructions for Treatment How to Access Health Information Online using Patient Portal and [employer] Apps Indication:BMI 36.0-36.9,adult Start:13-Nov-2021 Instruction Type:Patient Education Patient Instructions Indication:BMI 33.0-33.9,adult Start: 2 Instruction Type:Provider Instructions for Treatment How to Access Health Information Online using Patient Portal and [employer] Apps Indication:BMI 33.0-33.9,adult Start: 2 Instruction Type:Patient Education How to access health information online Indication:Hypertension, benign Start: 6 Instruction Type:Patient Education How to access health information online - Detail Indication:Hypertension, benign Start: 6 Instruction Type:Patient Education Patient Instructions Indication:Hypertension, benign Start: 6 Instruction Type:Provider Instructions for Treatment How to access health information online Indication:Bronchitis Start: Instruction Type:Patient Education How to access health information online - Detail Indication:Bronchitis Start: Instruction Type:Patient Education Patient Instructions Indication:Bronchitis Start: Instruction Type:Provider Instructions for Treatment Patient Instructions Indication:Hypertriglyceride yarelis Start:18-May-2016 Instruction Type:Provider Instructions for Treatment How to access health information online Indication:Physical examination of employee Start:20-Apr-2016 Instruction Type:Patient Education How to access health information online - Detail Indication:Physical examination of employee Start:20-Apr-2016 Instruction Type:Patient Education Patient Instructions Indication:Physical examination of employee Start:20-Apr-2016 Instruction Type:Provider Instructions for Treatment Patient Instructions Indication:Hypercholesterole yarelis Start:11-Feb-2016 Instruction Type:Provider Instructions for Treatment How to access health information online Indication:Hypercholesterole yarelis Start:11-Feb-2016 Instruction Type:Patient Education How to access health information online - Detail Indication:Hypercholesterole yarelis Start:11-Feb-2016 Instruction Type:Patient Education Patient Instructions Indication:BMI 38.0-38.9,adult Start:11-Feb-2016 Instruction Type:Provider Instructions for Treatment Patient Instructions Indication:General medical examination Start: 2 Instruction Type:Provider Instructions for Treatment [facility] Work Phone: Instructions Note Date & Type Note Facility Instructions Name How to Access Health Information Online using Patient Portal and [employer] Apps Indication:Nonsmoker Start: 3 Instruction Type:Patient Education Patient Instructions Indication:Nonsmoker Start: 3 Instruction Type:Provider Instructions for Treatment How to Access Health Information Online using Patient Portal and [employer] Apps Indication:Impaired fasting glucose Start: 2 Instruction Type:Patient Education Patient Instructions Indication:Impaired fasting glucose Start: 2 Instruction Type:Provider Instructions for Treatment Patient Instructions Indication:BMI 36.0-36.9,adult Start:13-Nov-2021 Instruction Type:Provider Instructions for Treatment How to Access Health Information Online using Patient Portal and [employer] Apps Indication:BMI 36.0-36.9,adult Start:13-Nov-2021 Instruction Type:Patient Education Patient Instructions Indication:BMI 33.0-33.9,adult Start: 2 Instruction Type:Provider Instructions for Treatment How to Access Health Information Online using Patient Portal and [employer] Apps Indication:BMI 33.0-33.9,adult Start: 2 Instruction Type:Patient Education How to access health information online Indication:Hypertension, benign Start: Instruction Type:Patient Education How to access health information online - Detail Indication:Hypertension, benign Start: Instruction Type:Patient Education Patient Instructions Indication:Hypertension, benign Start: Instruction Type:Provider Instructions for Treatment How to access health information online Indication:Bronchitis Start: Instruction Type:Patient Education How to access health information online - Detail Indication:Bronchitis Start: Instruction Type:Patient Education Patient Instructions Indication:Bronchitis Start: Instruction Type:Provider Instructions for Treatment Patient Instructions Indication:Hypertriglyceride yarelis Start:18-May-2016 Instruction Type:Provider Instructions for Treatment How to access health information online Indication:Physical examination of employee Start:20-Apr-2016 Instruction Type:Patient Education How to access health information online - Detail Indication:Physical examination of employee Start:20-Apr-2016 Instruction Type:Patient Education Patient Instructions Indication:Physical examination of employee Start:20-Apr-2016 Instruction Type:Provider Instructions for Treatment Patient Instructions Indication:Hypercholesterole yarelis Start:11-Feb-2016 Instruction Type:Provider Instructions for Treatment How to access health information online Indication:Hypercholesterole yarelis Start:11-Feb-2016 Instruction Type:Patient Education How to access health information online - Detail Indication:Hypercholesterole yarelis Start:11-Feb-2016 Instruction Type:Patient Education Patient Instructions Indication:BMI 38.0-38.9,adult Start:11-Feb-2016 Instruction Type:Provider Instructions for Treatment Patient Instructions Indication:General medical examination Start: 2 Instruction Type:Provider Instructions for Treatment [facility] Work Phone: Instructions Note Date & Type Note Facility Instructions Name Patient Instructions Indication:BMI 38.0-38.9,adult Start: 3 Instruction Type:Provider Instructions for Treatment How to Access Health Information Online using Patient Portal and [employer] Apps Indication:BMI 38.0-38.9,adult Start: 3 Instruction Type:Patient Education How to Access Health Information Online using Patient Portal and [employer] Apps Indication:Nonsmoker Start: 3 Instruction Type:Patient Education Patient Instructions Indication:Nonsmoker Start: 3 Instruction Type:Provider Instructions for Treatment How to Access Health Information Online using Patient Portal and [employer] Apps Indication:Impaired fasting glucose Start: 2 Instruction Type:Patient Education Patient Instructions Indication:Impaired fasting glucose Start: 2 Instruction Type:Provider Instructions for Treatment Patient Instructions Indication:BMI 36.0-36.9,adult Start:13-Nov-2021 Instruction Type:Provider Instructions for Treatment How to Access Health Information Online using Patient Portal and [employer] Apps Indication:BMI 36.0-36.9,adult Start:13-Nov-2021 Instruction Type:Patient Education Patient Instructions Indication:BMI 33.0-33.9,adult Start: 2 Instruction Type:Provider Instructions for Treatment How to Access Health Information Online using Patient Portal and [employer] Apps Indication:BMI 33.0-33.9,adult Start: 2 Instruction Type:Patient Education How to access health information online Indication:Hypertension, benign Start: 6 Instruction Type:Patient Education How to access health information online - Detail Indication:Hypertension, benign Start: 6 Instruction Type:Patient Education Patient Instructions Indication:Hypertension, benign Start: 6 Instruction Type:Provider Instructions for Treatment How to access health information online Indication:Bronchitis Start: 6 Instruction Type:Patient Education How to access health information online - Detail Indication:Bronchitis Start: 6 Instruction Type:Patient Education Patient Instructions Indication:Bronchitis Start: 6 Instruction Type:Provider Instructions for Treatment Patient Instructions Indication:Hypertriglyceride yarelis Start:18-May-2016 Instruction Type:Provider Instructions for Treatment How to access health information online Indication:Physical examination of employee Start:20-Apr-2016 Instruction Type:Patient Education How to access health information online - Detail Indication:Physical examination of employee Start:20-Apr-2016 Instruction Type:Patient Education Patient Instructions Indication:Physical examination of employee Start:20-Apr-2016 Instruction Type:Provider Instructions for Treatment Patient Instructions Indication:Hypercholesterole yarelis Start:11-Feb-2016 Instruction Type:Provider Instructions for Treatment How to access health information online Indication:Hypercholesterole yarelis Start:11-Feb-2016 Instruction Type:Patient Education How to access health information online - Detail Indication:Hypercholesterole yarelis Start:11-Feb-2016 Instruction Type:Patient Education Patient Instructions Indication:BMI 38.0-38.9,adult Start:11-Feb-2016 Instruction Type:Provider Instructions for Treatment Patient Instructions Indication:General medical examination Start: 2 Instruction Type:Provider Instructions for Treatment [facility] Work Phone: Instructions Note Date & Type Note Facility Instructions Name Patient Instructions Indication:BMI 38.0-38.9,adult Start: 3 Instruction Type:Provider Instructions for Treatment How to Access Health Information Online using Patient Portal and [employer] Apps Indication:BMI 38.0-38.9,adult Start: 3 Instruction Type:Patient Education How to Access Health Information Online using Patient Portal and [employer] Apps Indication:Nonsmoker Start: 3 Instruction Type:Patient Education Patient Instructions Indication:Nonsmoker Start: 3 Instruction Type:Provider Instructions for Treatment How to Access Health Information Online using Patient Portal and [employer] Apps Indication:Impaired fasting glucose Start: 2 Instruction Type:Patient Education Patient Instructions Indication:Impaired fasting glucose Start: 2 Instruction Type:Provider Instructions for Treatment Patient Instructions Indication:BMI 36.0-36.9,adult Start:13-Nov-2021 Instruction Type:Provider Instructions for Treatment How to Access Health Information Online using Patient Portal and [employer] Apps Indication:BMI 36.0-36.9,adult Start:13-Nov-2021 Instruction Type:Patient Education Patient Instructions Indication:BMI 33.0-33.9,adult Start: 2 Instruction Type:Provider Instructions for Treatment How to Access Health Information Online using Patient Portal and [employer] Apps Indication:BMI 33.0-33.9,adult Start: 2 Instruction Type:Patient Education How to access health information online Indication:Hypertension, benign Start: 6 Instruction Type:Patient Education How to access health information online - Detail Indication:Hypertension, benign Start: 6 Instruction Type:Patient Education Patient Instructions Indication:Hypertension, benign Start: 6 Instruction Type:Provider Instructions for Treatment How to access health information online Indication:Bronchitis Start: 6 Instruction Type:Patient Education How to access health information online - Detail Indication:Bronchitis Start: Instruction Type:Patient Education Patient Instructions Indication:Bronchitis Start: Instruction Type:Provider Instructions for Treatment Patient Instructions Indication:Hypertriglyceride yarelis Start:18-May-2016 Instruction Type:Provider Instructions for Treatment How to access health information online Indication:Physical examination of employee Start:20-Apr-2016 Instruction Type:Patient Education How to access health information online - Detail Indication:Physical examination of employee Start:20-Apr-2016 Instruction Type:Patient Education Patient Instructions Indication:Physical examination of employee Start:20-Apr-2016 Instruction Type:Provider Instructions for Treatment Patient Instructions Indication:Hypercholesterole yarelis Start:11-Feb-2016 Instruction Type:Provider Instructions for Treatment How to access health information online Indication:Hypercholesterole yarelis Start:11-Feb-2016 Instruction Type:Patient Education How to access health information online - Detail Indication:Hypercholesterole yarelis Start:11-Feb-2016 Instruction Type:Patient Education Patient Instructions Indication:BMI 38.0-38.9,adult Start:11-Feb-2016 Instruction Type:Provider Instructions for Treatment Patient Instructions Indication:General medical examination Start: 2 Instruction Type:Provider Instructions for Treatment [facility] Work Phone: Instructions Note Date & Type Note Facility Instructions Name Patient Instructions Indication:BMI 38.0-38.9,adult Start: 3 Instruction Type:Provider Instructions for Treatment How to Access Health Information Online using Patient Portal and [employer] Apps Indication:BMI 38.0-38.9,adult Start: 3 Instruction Type:Patient Education How to Access Health Information Online using Patient Portal and [employer] Apps Indication:Nonsmoker Start: 3 Instruction Type:Patient Education Patient Instructions Indication:Nonsmoker Start: 3 Instruction Type:Provider Instructions for Treatment How to Access Health Information Online using Patient Portal and [employer] Apps Indication:Impaired fasting glucose Start: 2 Instruction Type:Patient Education Patient Instructions Indication:Impaired fasting glucose Start: 2 Instruction Type:Provider Instructions for Treatment Patient Instructions Indication:BMI 36.0-36.9,adult Start:13-Nov-2021 Instruction Type:Provider Instructions for Treatment How to Access Health Information Online using Patient Portal and [employer] Apps Indication:BMI 36.0-36.9,adult Start:13-Nov-2021 Instruction Type:Patient Education Patient Instructions Indication:BMI 33.0-33.9,adult Start: 2 Instruction Type:Provider Instructions for Treatment How to Access Health Information Online using Patient Portal and [employer] Apps Indication:BMI 33.0-33.9,adult Start: 2 Instruction Type:Patient Education How to access health information online Indication:Hypertension, benign Start: Instruction Type:Patient Education How to access health information online - Detail Indication:Hypertension, benign Start: 6 Instruction Type:Patient Education Patient Instructions Indication:Hypertension, benign Start: 6 Instruction Type:Provider Instructions for Treatment How to access health information online Indication:Bronchitis Start: 6 Instruction Type:Patient Education How to access health information online - Detail Indication:Bronchitis Start: Instruction Type:Patient Education Patient Instructions Indication:Bronchitis Start: 6 Instruction Type:Provider Instructions for Treatment Patient Instructions Indication:Hypertriglyceride yarelis Start:18-May-2016 Instruction Type:Provider Instructions for Treatment How to access health information online Indication:Physical examination of employee Start:20-Apr-2016 Instruction Type:Patient Education How to access health information online - Detail Indication:Physical examination of employee Start:20-Apr-2016 Instruction Type:Patient Education Patient Instructions Indication:Physical examination of employee Start:20-Apr-2016 Instruction Type:Provider Instructions for Treatment Patient Instructions Indication:Hypercholesterole yarelis Start:11-Feb-2016 Instruction Type:Provider Instructions for Treatment How to access health information online Indication:Hypercholesterole yarelis Start:11-Feb-2016 Instruction Type:Patient Education How to access health information online - Detail Indication:Hypercholesterole yarelis Start:11-Feb-2016 Instruction Type:Patient Education Patient Instructions Indication:BMI 38.0-38.9,adult Start:11-Feb-2016 Instruction Type:Provider Instructions for Treatment Patient Instructions Indication:General medical examination Start: Instruction Type:Provider Instructions for Treatment [facility] Work Phone: Summary Purpose Family History No Family History Records FoundUnknown Family Member Name Dates Details Diabetes Mellitus Comments:Father Status:Active Hypertension Comments:Mother Status:Active Unknown Family Member Name Dates Details Diabetes Mellitus Comments:Father Status:Active Hypertension Comments:Mother Status:Active Unknown Family Member Name Dates Details Diabetes Mellitus Comments:Father Status:Active Hypertension Comments:Mother Status:Active Unknown Family Member Name Dates Details Diabetes Mellitus Comments:Father Status:Active Hypertension Comments:Mother Status:Active Unknown Family Member Name Dates Details Diabetes Mellitus Comments:Father Status:Active Hypertension Comments:Mother Status:Active Unknown Family Member Name Dates Details Diabetes Mellitus Comments:Father Status:Active Hypertension Comments:Mother Status:Active Unknown Family Member Name Dates Details Diabetes Mellitus Comments:Father Status:Active Hypertension Comments:Mother Status:Active Unknown Family Member Name Dates Details Diabetes Mellitus Comments:Father Status:Active Hypertension Comments:Mother Status:Active Unknown Family Member Name Dates Details Diabetes Mellitus Comments:Father Status:Active Hypertension Comments:Mother Status:Active Unknown Family Member Name Dates Details Diabetes Mellitus Comments:Father Status:Active Hypertension Comments:Mother Status:Active Advance Directives No Advanced Directives Records FoundNo Advanced Directives Records FoundNo Advanced Directives Records Found Additional Source Comments (unrecognized sect ion and content) No Status Records FoundNo Status Records FoundNo Status Records Found INFORMATION SOURCE (unrecogn ized section and content) DATE CREATED AUTHOR 04/11/2020 [facility] DATE CREATED AUTHOR AUTHOR'S ORGANIZ ATION 09/10/2022 [facility] DATE CREATED AUTHOR AUTHOR'S ORGANIZ ATION 09/07/2024 [facility] FOR RECORDS PERTAINING TO PATIENTS WHO ARE OR HAVE BEEN ENROLLED IN A CHEMICAL DEPENDENCY/SUBSTANCEABUSE PROGRAM, SOME INFORMATION MAY BE OMITTED. This clinical summary was aggregated from multiple sources. Caution should be exercised in using it in the provision of clinical care. This summary normalizes information from multiple sources, and as a consequence, information in this document may materially change the coding, format and clinical context of patient data. In addition, data may be omitted in some cases. CLINICAL DECISIONS SHOULD BE BASED ON THE PRIMARY CLINICAL RECORDS. [employer] [facility]. provides no warranty or guarantee of the accuracy or completeness of information in this document.
--- NOTE | 2025-08-09 15:40 | RAD_ITS ---
PROCEDURE: FINGER(S) MIN 2 VIEWS 08/09/2025 REASON FOR EXAM: R/O FRACTURE OF LEFT INDEX FINGER TECHNIQUE: Procedure Code: RADFIN Modality: DX Procedure: FINGER(S) MIN 2 VIEWS Laterality: Left COMPARISON: None. FINDINGS: Bones: Chronic deformity of the left 2nd proximal phalanx. Age indeterminate small avulsion fracture at the medial distal corner of the 2nd middle phalanx. No displaced fractures. Joints: Normal alignment. Mild degenerative changes. Soft tissues: Soft tissues are unremarkable. RAD/Finger(s) Min 2 Views IMPRESSION: Age indeterminate small avulsion fracture of the medial distal corner of the 2n d middle phalanx. No displaced fractures. Degenerate changes. Reading [facility]
== END | disposition home or self-care (01) ==
LOC: RAD 15:26
PROVIDERS: Referring Provider Nurse Practitioner Family; Visit Provider Nurse Practitioner Family
DX: L03.012 Cellulitis of left finger (principal)
CPT/HCPCS: 73140